=== PATIENT | female | born 2000 | race Caucasian/White ===

== ENCOUNTER 2024-04-03 16:10 | Emergency (ER) | payer OTHER, SELFPAY ==
--- NOTE | 2024-04-03 16:15 | ED.URI ---
HPI - URI/Sore Throat General Chief Complaint: Upper Respiratory Infection Stated Complaint: sore throat and rash Time Seen by Provider: 04/03/24 16:27 Source: patient, RN notes reviewed and old records reviewed Mode of arrival: ambulatory Limitations: no limitations History of Present Illness HPI Narrative: 24-year-old female presents to the [facility] with 2 complaints. Patient has had a sore throat, body aches, sinus congestion since Friday, 4 days. Denies fevers. Patient also has a rash to lower abdomen. Had been using a topical cream which states it got better. States the rash started yesterday Related Data Home Medications Medication Instructions Recorded Confirmed minoxidil 5 % topical foam See Rx Instructions .Route .COMPLEX 04/03/24 04/03/24 Allergies Allergy/AdvReac Type Severity Reaction Status Date / Time No Known Allergies Allergy Verified 04/03/24 16:22 Review of Systems Review of Systems: All systems reviewed & are unremarkable except as noted in HPI and below Constitutional: Constitutional: Reports no additional constitutional complaints Eyes: Eyes: Reports no additional eye complaints ENT: Reports as per HPI, Reports nasal congestion, Reports sinus pressure and Reports sore throat Cardiovascular: Cardiovascular: Reports no additional cardiovascular complaints, Denies chest pain and Denies dyspnea Respiratory: Respiratory: Denies chest congestion, Denies cough and Denies dyspnea Gastrointestinal: Gastrointestinal: Reports no additional gastrointestinal complaints, Denies abdominal pain, Denies nausea and Denies vomiting Musculoskeletal: Musculoskeletal: Reports no additional musculoskeletal complaints Integumentary/Breasts: Skin/Breast: Reports as per HPI Neurologic: Reports system reviewed and no additional complaints, except as documented Psychiatric: Psychiatric: Reports no additional psychiatric complaints Allergic/Immunologic: Allergic/Immunologic: Reports no additional allergic/immunologic complaints PMFSH Social History Social History Smoking status: Never smoker Comments At the time of my signature, I reviewed and agree with the nursing past medical, surgical, social, and family history. There is no relevant family history pertinent to the patient complaint. Exam Const: General: cooperative, healthy appearing, comfortable, no acute distress, well developed, alert and well nourished Nutritional Appearance: well nourished Orientation/consciousness: patient oriented x3 Limitations: no limitations HENMT: Head: normal to inspection Ears: hearing grossly normal bilaterally and external ears normal Face/Nose/Sinus: Normal external nose present, Normal nares present, Normal nasal mucous membranes and turbinates present, normal facial exam and face symmetric Face and sinus: normal facial exam and face symmetric Mouth: Yes Normal oral and palatal mucosa present, Yes lip normal and Yes tongue normal Throat: tonsils normal, uvula midline, postnasal drainage and no uvular edema Eyes: General: appearance normal, both eyes and all related structures Alignment and Position: alignment normal Periorbital: periorbital findings normal Pupils: Equal, round and reactive pupils present EOM: EOMs intact bilaterally Neck: Neck: normal visual inspection, full ROM, no lymphadenopathy and no meningeal signs Chest: Chest palpation & inspection: normal inspection of the chest Resp: Effort & Inspection: normal respiratory effort and able to speak in complete sentences Auscultation: clear to auscultation bilaterally, no crackles, no rales, no rhonchi and no wheezes Cardio: Rate: regular rate Rhythm: regular rhythm Skin: General skin exam: normal color and no rashes or lesions noted Lesions: no lesions Trauma: no lacerations or abrasions Wounds: no wounds Other: Oval areas multiple to the right lower abdomen below pannus Patient denies
[2024-04-03 16:25] VITALS: BP 128/72; PULSE 98; RESP 18; TEMP 36.5; O2SAT 99
[2024-04-03 16:34] LABS: EDSTREPNEGPOS1 Negative (Negative)
== END 2024-04-03 16:43 | disposition home or self-care (01) ==
PROVIDERS: Emergency Provider Nurse Practitioner
DX: J06.9 Acute upper respiratory infection, unspecified (principal); R09.82 Postnasal drip; B36.9 Superficial mycosis, unspecified
CPT/HCPCS: 87070; 87880; 99213; G0463

== ENCOUNTER 2024-04-25 12:07 | Emergency (ER) | payer OTHER, SELFPAY ==
--- NOTE | ~2024-04-25 | US_ITS ---
EXAMINATION: US venous doppler [facility] DATE: 04/25/2024 13:56 INDICATION: Left lower limb swelling. TECHNIQUE: Grayscale ultrasound images without and with compression and Doppler ultrasound images of the left lower extremity veins were obtained. COMPARISON: None. FINDINGS: The visualized portions of left common femoral vein, profunda (deep) femoral vein, femoral vein, popl iteal vein, peroneal veins, posterior tibial veins, and greater saphenous vein outflow are patent. IMPRESSION: 1. No deep venous thrombosis. Reviewed, dictated and finalized at location A.
[2024-04-25 12:09] VITALS: BP 148/95; PULSE 98; RESP 16; TEMP 36.3; O2SAT 97
--- NOTE | 2024-04-25 12:54 | ED.LOWEXIN ---
HPI - Extremity Injury (Lower) General Chief Complaint: Extremity Injury, Lower Stated Complaint: LLE pain, worried about DVT Time Seen by Provider: 04/25/24 12:15 Source: patient Mode of arrival: ambulatory Limitations: no limitations History of Present Illness HPI Narrative: This is a 24-year-old female, on a ago via minoxidil, who presents to the emergency department complaining of left leg pain for the past 2 weeks. The patient states she has family history clotting disorders and is concerned for blood clot. She describes the pain as cramping, moderate and intermittent. She denies any fevers, chills, weakness or known trauma. She has no other complaints at this time. Related Data Home Medications Medication Instructions Recorded Confirmed minoxidil 5 % topical foam See Rx Instructions .Route .COMPLEX 04/03/24 04/03/24 Allergies Allergy/AdvReac Type Severity Reaction Status Date / Time No Known Allergies Allergy Verified 04/25/24 12:24 Review of Systems Review of Systems: All systems reviewed & are unremarkable except as noted in HPI and below PMFSH Past Medical History Medical History Hair loss Surgical History Surgical History No significant past surgical history Social History Social History Smoking status: Never smoker Alcohol intake: never Substance use: never Exam Narrative: GENERAL: Well-developed, well-nourished, and in no acute distress. HEAD: Normocephalic, atraumatic. EYES: PERRLA and EOMI. CHEST: Clear to auscultation. No respiratory distress. No wheezes rales or rhonchi HEART: Regular rate and rhythm. No murmur heard. Normal peripheral pulses. ABDOMEN: Soft, nontender, nondistended, normal active bowel sounds. EXTREMITIES: No obvious deformity. Normal range of motion. Trace left lower leg edema compared to the right. SKIN: Warm, dry, no rash. NEURO: Alert and oriented x3. No focal deficit. Moving all 4 limbs spontaneously PSYCH: Normal mood and affect. Course Course Emergency Course: 14:20 - Left lower extremity ultrasound negative for DVT. I suspect this is strain as the cause of her pain. Will discharge with recommendation for primary care follow-up. I discussed the findings and recommendations with the patient. Discussed return and emergency precautions including signs/symptoms of infection and neurovascular compromise. The patient voiced understanding and agreement with the plan. All questions answered to her satisfaction. Vital Signs Vital signs: Vital Signs Temperature 97.3 F L 04/25/24 12:09 Pulse Rate 98 04/25/24 12:09 Respiratory Rate 16 04/25/24 12:09 Blood Pressure 148/95 H 04/25/24 12:09 Pulse Oximetry 97 04/25/24 12:09 Oxygen Delivery Room Air 04/25/24 12:09 Temperature 97.3 F L 04/25/24 12:09 Pulse Rate 98 04/25/24 12:09 Respiratory Rate 16 04/25/24 12:09 Blood Pressure 148/95 H 04/25/24 12:09 Pulse Oximetry 97 04/25/24 12:09 Oxygen Delivery Room Air 04/25/24 12:09 MDM - Extremity Injury (Lower) MDM Narrative Medical decision making narrative: Plan: Imaging, reassess Differential Diagnosis Differential diagnosis: Likely other (DVT, muscle strain, other) Discharge Plan Discharge Clinical Impression: Pain of left calf Strain of calf muscle Qualifiers: Encounter type: initial encounter Laterality: left Qualified Code(s): S86.812A - Strain of other muscle(s) and tendon(s) at lower leg level, left leg, initial encounter Patient Disposition: Home, Self-Care Condition: Stable Instructions: Antibiotic Form, Leg Sprain (ED) Additional Instructions: You were seen in the emergency department. An ultrasound was not concerning for blood clot. I suspect a strain. I recommend following up with your primary care doctor. If you develop fevers with rapidly spreading redness and increasing pain, the foot/leg appears blue/cold, or if you have other emergent concerns for life, limb, or eyesight, return to the emergency department. Patient Language: Kinyarwanda Prescriptions: No Action minoxidil 5 % Foam See Rx Instructions .ROUTE .COMPLEX Rx Instructions: ea topically clotrimazole 1 % cream 1 applic topical BID 14 Days Qty: 45 0RF Follow-up/Referrals: Perla,MD Nicolette [Primary Care Provider] - 2 Weeks Time of Disposition: 14:23
== END 2024-04-25 14:31 | disposition home or self-care (01) ==
PROVIDERS: Emergency Provider Preventive Medicine Aerospace Medicine; PCP Family Medicine
DX: S86.812A Strain of other muscle(s) and tendon(s) at lower leg level, left leg, initial encounter (principal)
CPT/HCPCS: 93971; 99284

== ENCOUNTER 2024-06-10 17:39 | Emergency (ER) | payer OTHER, SELFPAY ==
[2024-06-10 17:54] VITALS: BP 129/76; PULSE 100; RESP 18; TEMP 36.6; O2SAT 100
--- NOTE | 2024-06-10 18:14 | ED_ITS ---
HPI - URI/Sore Throat General Chief Complaint: Upper Respiratory Infection Stated Complaint: Sore throat Time Seen by Provider: 06/10/24 18:15 Source: patient, RN notes reviewed and old records reviewed Mode of arrival: ambulatory Limitations: no limitations History of Present Illness HPI Narrative: 24-year-old female presents to the [facility] with 2 day history of body aches, sore throat. States that she was at a family reunion family members were recently diagnosed with bronchitis. Denies any fevers. Onset (ago): day(s) (2) Related Data Home Medications ?Medication ?Instructions ?Recorded ?Confirmed ?Last Taken ?Type minoxidil 2.5 mg tablet 2.5 mg PO DAILY 06/10/24 06/10/24 Unknown History Allergies Allergy/AdvReac Type Severity Reaction Status Date / Time No Known Allergies Allergy Verified 06/10/24 18:16 Review of Systems Review of Systems: All systems reviewed & are unremarkable except as noted in HPI and below Constitutional: Constitutional: Reports as per HPI and Reports body ache(s) ENT: Reports as per HPI and Reports sore throat Cardiovascular: Cardiovascular: Reports no additional cardiovascular complaints, Denies chest pain and Denies dyspnea Respiratory: Respiratory: Reports no additional respiratory complaints, Denies chest congestion, Denies cough and Denies dyspnea Gastrointestinal: Gastrointestinal: Reports no additional gastrointestinal complaints, Denies abdominal pain, Denies nausea and Denies vomiting Musculoskeletal: Musculoskeletal: Reports no additional musculoskeletal complaints Integumentary/Breasts: Skin/Breast: Reports system reviewed and no additional complaints, except as docu PMFSH Past Medical History Medical History Hair loss Surgical History Surgical History No significant past surgical history Social History Social History Smoking status: Never smoker Alcohol intake: never Substance use: never Comments At the time of my signature, I reviewed and agree with the nursing past medical, surgical, social, and family history. There is no relevant family history pertinent to the patient complaint. Exam Const: General: cooperative, healthy appearing, comfortable, no acute distress, well developed, alert and well nourished Nutritional Appearance: well nourished and obese Orientation/consciousness: patient oriented x3 Limitations: no limitations HENMT: Head: normal to inspection Ears: hearing grossly normal bilaterally, external ears normal, TM's normal bilaterally, EAC's normal, mastoids normal and no periauricular adenopathy Face/Nose/Sinus: Normal external nose present, normal facial exam and face symmetric Face and sinus: normal facial exam and face symmetric Mouth: Yes Normal oral and palatal mucosa present, Yes lip normal and Yes tongue normal Throat: uvula midline, abnormal tonsil bilateral erythema; no exudates and no hypertrophy and postnasal drainage Eyes: General: appearance normal, both eyes and all related structures Alignment and Position: alignment normal Periorbital: periorbital findings normal Neck: Neck: normal visual inspection, full ROM, no lymphadenopathy and no meningeal signs Chest: Chest palpation & inspection: normal inspection of the chest Resp: Effort & Inspection: normal respiratory effort and able to speak in complete sentences Auscultation: clear to auscultation bilaterally, no crackles, no rales, no rhonchi and no wheezes Cardio: Rate: regular rate Skin: General skin exam: normal color and no rashes or lesions noted Lesions: no lesions Rashes: no rashes Wounds: no wounds Neuro: General: patient oriented x3, gait normal, tone normal, moves all extremities and no meningeal signs Cognition (Neuro): normal cognition Speech: normal speech Gait exam (Neuro): Normal gait present Extrem: General: normal to inspection, full ROM, capillary refill normal and normal gait Psych: Appearance: grossly normal and well kempt Mental Status: mental status grossly normal Speech and movement: Normal speech and movement present and Clear speech present Affect: normal affect Attitude: cooperative Course Course Level of Care: Express Care Visit Vital Signs Vital signs: Vital Signs Temperature 97.8 F 06/10/24 17:54 Pulse Rate 100 06/10/24 17:54 Respiratory Rate 18 06/10/24 17:54 Blood Pressure 129/76 06/10/24 17:54 Pulse Oximetry 100 06/10/24 17:54 Oxygen Delivery Room Air 06/10/24 17:54 Temperature 97.8 F 06/10/24 17:54 Pulse Rate 100 06/10/24 17:54 Respiratory Rate 18 06/10/24 17:54 Blood Pressure 129/76 06/10/24 17:54 Pulse Oximetry 100 06/10/24 17:54 Oxygen Delivery Room Air 06/10/24 17:54 Reviewed MDM - URI/Sore Throat MDM Narrative Medical decision making narrative: Patient sitting comfortably in exam room. Nontoxic, vitals stable. Patient presents with 2 day history of URI symptoms. Has taken ktbu-vzx-gnfvqey products. Flu COVID negative. Strep positive Patient appropriate for outpatient treatment with antibiotics with close Discharge instructions reviewed with patient, as well as provided in writing per nursing staff. The instructions also include specific and strict return/GO TO THE ER as well as f/u information. All questions have been answered, and the patient deny any further questions with discharge and discharge plan. Some parts of this dictation were generated by voice recognition software and may contain typographical and/or grammatical inaccuracies. Differential Diagnosis Differential diagnosis: Likely upper respiratory infection, otitis media, sinusitis, viral infection, influenza and pharyngitis Lab Data Labs: Lab Results 06/10/24 Range/Units 18:42 POC Influenza A Ag Negative (Negative) POC Influenza B Ag Negative (Negative) POC SARS CoV-2 Ag Negative (Negative) POC Grp A Strep Screen Positive (Negative) Reviewed Critical Care Time Critical Care Time Critical Care Time: No Discharge Plan Discharge Clinical Impression: Strep throat Patient Disposition: Home, Self-Care Condition: Stable Instructions: Antibiotic Form, Strep Throat (ED) Additional Instructions: After 24-48 hours on antibiotics, Throw the toothbrush away, start using a new one. Please be sure to wash bed linens especially pillow cases. Repeat once you finish the antibiotics. Do not share drinks. Take Motrin alternating with Tylenol for pain and fever alternating every 4 hours. Increase fluids, avoid caffeine. Give plenty of water, juice, Gatorade, Pedialyte, ice pops in Jell-O Follow up with Primary provider if not getting better this week For new or worsening symptoms go directly to the emergency room Patient Language: Romanian Prescriptions: New amoxicillin 500 mg tablet 500 mg PO Q12H Qty: 20 0RF No Action minoxidil 2.5 mg tablet 2.5 mg PO DAILY Follow-up/Referrals: Perla,MD Nicolette [Primary Care Provider] - 1 Week (express care follow up ) Stand Alone Forms: Work/School Release IP Time of Disposition: 18:52
[2024-06-10 18:44] LABS: EDCOVIDSCREEN Negative (Negative); EDINFLUASCREEN Negative (Negative); EDINFLUBSCREEN Negative (Negative); EDSTREPNEGPOS1 Positive (Negative)
== END 2024-06-10 18:55 | disposition home or self-care (01) ==
PROVIDERS: Emergency Provider Nurse Practitioner; PCP Family Medicine
DX: J02.0 Streptococcal pharyngitis (principal); Z20.822 Contact with and (suspected) exposure to COVID-19
CPT/HCPCS: 87426; 87804; 87880; 99213; G0463

== ENCOUNTER 2024-12-16 00:34 | Emergency (ER) | payer OTHER, SELFPAY ==
--- NOTE | ~2024-12-16 | XR_ITS ---
Portable chest x-ray Comparison: None Clinical History: Right chest pain Findings: Lungs are clear, without focal consolidation or pleural effusion. Cardiomediastinal silho uette is unremarkable. Bones and soft tissues are unremarkable. Impression: Normal chest. Reviewed, dictated and finalized at location M. Impression: Normal chest.
--- OUTSIDE RECORDS SUMMARY | 2024-12-16 00:36 | XMS_ITS | Referral Summary ---
Author Organization [address] [place] Address [address] [address] Care Team Providers Care Chief Of Planning Name Role Phone Nicolette Duncan MD Primary Care Provi blair Allergies No known active allergies Medications No known medications Active Problems Problem Noted Date Diagnosed Date Well adult exam 04/01/2023 Overview (04/01/2023): Discussed healthy diet and disease prevention- reviewed working on healthy diet, regular physical activity to your level, wearing sun screen, seat belts. Reviewed not using any mind alternating substances and driving No texting/driving Discussed importance of scheduling recommended screening tests. Discussed importance of regular physical examinations for health maintenance Health Maintenance: Last Tdap: encouraged Last Flu: encouraged Last COVID: encouraged If we can get last vaccine records so we can update your records Assessment & Plan (04/01/2023 10:29 AM CDT): Discussed healthy diet and disease prevention- reviewed working on healthy diet, regular physical activity to your level, wearing sun screen, seat belts. Reviewed not using any mind alternating substances and driving No texting/driving Discussed importance of scheduling recommended screening tests. Discussed importance of regular physical examinations for health maintenance Health Maintenance: Last Tdap: encouraged Last Flu: encouraged Last COVID: encouraged If we can get last vaccine records so we can update your records Test results: if you have not received communication about test results within 7 days of the test being performed, please contact the office. I strongly encourage myChart sign ups. It can facilitate communication flow. Please contact the office for instructions on signing up. Class 3 severe obesity due t o excess calories without serious comorbidity with body mass index (BMI) of 40.0 to 44.9 in adult 04/04/2021 Assessment & Plan (04/01/2023 10:31 AM CDT): Chronic, with improvement BMI Follow-up includes: nutrition counseling. Assessment & Plan (08/14/2021 9:31 AM PAVING RAMMER): She has lost weight since her last visit- 10 lbs! BMI Follow-up includes: nutrition counseling. Assessment & Plan (04/04/2021 3:00 PM CDT): BMI Follow-up includes: nutrition counseling and exercise counseling. Polycystic ovarian syndrome 01/17/2015 Overview (04/04/2021): Menstrual irregularity; facial hair growth, accelerated weight gain for months. [facility] (November 24, 2014): 17-hydroxyprogesterone 25 ng/dL, total testosterone 35 ng/dL, LH 3.1 uIU/mL, FSH 6.4 uIU/mL, hemoglobin A1c 5.4% (< 5.6), free T4 (direct) 1.28 ng/dL (0.93-1.60), DHEA-S 366.8 ug/dL (67.8-328.6), TSH 3.890 uIU/mL (0.450- 4.50), prolactin 7.0 ng/mL (4.8-23.3); cholesterol 161 mg/dL (100-169); triglyceride 73 mg/dL (< 89), HDL-cholesterol 51 mg/dL (> 39), LDL-cholesterol (calc) 95 mg/dL (< 109), VLDL-cholesterol (calc) 15 mg/dL (5-40) Last Assessment & Plan: Menstrual irregularity, facial/body hair growth, accelerated weight gain, mildly elevated serum testosterone level, probable evolving polycystic ovarian syndrome. 1. Obtain fasting serum glucose level following today's office appointment (laboratory requisition given). 2. See website: choosemyplate.gov for patient information handouts on healthy eating habits, meal planning, label reading, age appropriate foods, and portion size control. 3. Dietary & exercise counseling provided. 4. Increase daily physical exercise. 5. Metformin - daily, as outlined. 6. Return appointment in three months. 7. I reviewed my impression and recommendations with mother at the time of the office visit and she was in agreement. Assessment & Plan (08/14/2021 9:27 AM PAVING RAMMER): Currently uncontrolled Will start daily metformin 500 mg daily Continue to work on a lower cab diet, and daily activity Recheck labs in 6 months on meds Update me with any changes Call for questions or concerns Assessment & Plan (04/04/2021 3:00 PM CDT): Will check labs Will check pelvic ultrasound Will start with healthy lifestyle changes Follow up for her pap smear/lab review Update me with any changes Call for questions or concerns Immunizations Immunization Administration Dates Next Due DTaP 11/30/2004,04/14/2001 Hep B / HiB 01/12/2001 IPV 11/30/2004 Influenza, Unspecified 04/01/2023(Deferr ed: Patient Refused),03/30/2022(Deferred: Patient decision),08/14/2021(Deferred: Patient Refused),03/30/2020(Deferred: Patient Refused) MMR 11/30/2004,01/12/2001 Pneumococcal Conjugate 7-Valent 08/21/2001 Tdap 04/01/2023(Deferred: Patient Ref used) Varicella 01/12/2001 Social History Tobacco Use Types Packs/Day Years Used Date Smoking Tobacco: Never Tobacco Cessation:Counseling Given: Not Answered AUDIT-C Answer Date Recorded Q1: How often do you have a drink containing alc ohol? Monthly or less 04/01/2023 Q2: How many drinks containi ng alcohol do you have on a typical day when you are drinking? 1 or 2 04/01/2023 Q3: How often do you have si x or more drinks on one occasion? Never 04/01/2023 PHQ-2 Answer Date Recorded PHQ-2 Total Score (If total score is 3 or more points, staff should administer the PHQ-9) 0 04/01/2023 Personal Safety Answer Date Recorded Getting School Help Needed Not on file 08/23 Comments No Sex and Gender Information Value Date Recorded Sex Assigned at Not on file Legal Sex Female 12:13 AM PAVING RAMMER Gender Identity Not on file Sexual Orientation Not on file Last Filed Vital Signs Vital Sign Reading Time Taken Comments Blood Pressure 110/82 04/01/2023 10:14 AM CDT Pulse 81 04/01/2023 10:14 AM CDT Temperature 36.8 C (98.2 F) 04/01/2023 10:14 AM CDT Respiratory Rate 12 04/01/2023 10:1 4 AM CDT Oxygen Saturation 99% 04/01/2023 10: 14 AM CDT Inhaled Oxygen Concentration - - Weight 128.1 kg (282 lb 6.4 oz) 023 10:14 AM CDT Height 175.3 cm (5' 9) 04/01/2023 10:1 4 AM CDT Body Mass Index 41.7 04/01/2023 10:14 AM CDT Plan of Treatment Not on file Procedures Procedure Name Priority Date/Time Associated Diagnosis Comments HM CHLAMYDIA AND GONORRHEA Routine 11/19/2021 from Last 3 Months or Most Recently Relevant to Health Maintenance Results * HM CHLAMYDIA AND GONORRHEA (11/19/2021) [facility] Provider HEALTH MAINTENANCE Final Result from Last 3 Months or Most Recently Relevant to Health Maintenance Insurance [employer] [facility] HMO IDPA Care Teams Chief Of Planning Relationship Specialty Start Date End Date Nicolette Duncan MD [address] [place] [address] PCP - General Family Medicine 02/05/21
--- OUTSIDE RECORDS SUMMARY | 2024-12-16 00:36 | XMS_ITS | Continuity of Care Document ---
Author Organization [facility] Address [address] [place] [address] Phone Care Team Providers Care Artist'S Model Name Role Phone Malissa Jim PTA Unavailable Unavailable Procedures Procedure Date Neuromuscular Re-Ed Therapeutic Activities Therapeutic Exercise Manual Therapy Therapeutic Activities Neuromuscular Re-Ed Therapeutic Exercise Manual Therapy Therapeutic Activities Neuromuscular Re-Ed Therapeutic Exercise Manual Therapy PT Evaluation Low Complexity Neuromuscular Re-Ed Therapeutic Activities Free Assessment Void Encounter Advance Directives Directive Yes / No Effective Date File Name No Information Encounters Encounter Description Practice Location Reason(s) For Visit Diagnoses Date Provider Providers Copied on Encounter [facility], [place], [place], [id number], [place] tel:[phone] [place] No Information Hernán Leonardo. . [facility], [place], [place], [address], tel:[phone] [place] No Information Hernán Leonardo. . Referring Provider: Nicolette Calle, [address] [facility], [place], [address]. tel:[phone] [facility] [address], [place], [place], [id number], tel:[phone] [place] No Information [place] Malissa. . Referring Provider: Nicolette Calle, [address] [facility], [place], [address]. tel:[phone] [facility] [address] [address], [place], [place], [id number], [place] tel:[phone] [place] No Information [place] Malissa. . Referring Provider: Nicolette Calle, [address] [facility], [place], [address]. tel:[phone] [place] [address] [address] [address], [place], [place], [id number], tel:[phone] [place] No Information Quintonaaron Fernandez. . Referring Provider: Nicolette Calle, [address] [facility], [place], [address]. tel:[phone] [place], [place] [id number] [address] [address], [place], [place], [address], [place] tel:[phone] [place] No Information Heslin Yunior. . Referring Provider: Physician Screen. [facility] [address], [place], [place], [id number], [place] tel:[phone] [place] No Information Heslin Yunior. . Referring Provider: Physician Screen. Family History Family Member Type Diagnosis Age At Onset No Information Payers Payer name Insurance type Covered democrat ID Juanita jang(s) [facility] [id number] Social History Type Description Quantity Date Captured [...]
--- OUTSIDE RECORDS SUMMARY | 2024-12-16 00:36 | XMS_ITS | Patient Health Record ---
Author Organization [facility] Address [address] [id number] Care Team Providers Care Motor Vehicle Or Caravan Salesperson Name Role Phone Horace Lala DO Unavailable [phone] Unavailable [phone] Allergies No Known Allergies Reason For Referral No Information Plan Of Treatment No Information Insurance Providers Payer Name Payer Address Payer Phone Subscriber Number Group Number Insured Name Patient Relationship to Insured Coverage Start Date Coverage End Date [employer] [address] [place] [address] [id number] Jenni Cash Self - patient is the insured Medical (General) History Medical History History ICD Code gallbladder issues Liver disease Anemia: Gallbladder problems,Liver disea se or Abnormal liver test
--- OUTSIDE RECORDS SUMMARY | 2024-12-16 00:36 | XMS_ITS | Clinical Summary ---
Author Organization [facility] Care Team Providers Care Operations Research Group Manager Name Role Phone Unavailable Primary Care Provider Unavailabl e Social History Tobacco Use Types Packs/Day Years Used Date Smoking Tobacco: Never Assessed Comments Unknown Sex and Gender Information Value Date Recorded Sex Assigned at Not on file Legal Sex Female 10:52 AM TEST DEPARTMENT HELPER Gender Identity Not on file Sexual Orientation Not on file Plan of Treatment Health Maintenance Due Date Last Done Comments Hepatitis C Virus (HCV) Screening 2000 TdaP Immunization 2000 Human Papillomavirus (HPV) Immunization (1 - 3-dose series) 01/09/2015 Hepatitis B Immunization (1 of 3 - 19+ 3-dose series) 01/09/2019 Pap Smear 01/09/2021 Influenza Immunization (#1) 2024 SARS-COV-2 Immunization (2023- season) 2024 11/11/2020, 10/13/2020 Respiratory Syncytial Virus (RSV) Immunization (Adult) (1 - 1-dose 75+ series) 01/09/2075 DTaP/Tdap/Td Immunization Discontinued 11/30/2004 Meningococcal Immunization (ACWY) Aged Out No longer eligible based on patient's age to complete this topic Pneumococcal Immunization Combined Aged Out No longer eligible based on patient's age to complete this topic Rotavirus Immunization Aged Out No lo nger eligible based on patient's age to complete this topic
--- OUTSIDE RECORDS SUMMARY | 2024-12-16 00:36 | XMS_ITS | Clinical Summary ---
Author Organization [address] [place] Address [address] [address] Care Team Providers Care Mold Mover Name Role Phone Nicolette Duncan MD Primary [...] counseling. Assessment & Plan (08/14/2021 9:31 AM HOTEL HOUSEKEEPER): She has lost weight since her last [...] agreement. Assessment & Plan (08/14/2021 9:27 AM HOTEL HOUSEKEEPER): Currently uncontrolled Will start daily metformin 500 [...] Tdap 04/01/2023(Deferred: Patient Ref used) Varicella 01/12/2001 Medical History Medical History Date Comments PCOS (polycystic ovarian syndrome) Family History Medical History Relation Name Comments Breast cancer Maternal Grandmother Relation Name Status Comments Father Alive Maternal Grandfather Alive Maternal Grandmother Alive Mother Alive Paternal Grandfather Alive Paternal Grandmother Alive Social History Tobacco Use Types Packs/Day Years [...] on file Legal Sex Female 12:13 AM HOTEL HOUSEKEEPER Gender Identity Not on file Sexual Orientation Not on file Obstetrics History Last Filed Vital Signs Vital Sign Reading [...] 04/01/2023 10:14 AM CDT Plan of Treatment Health Maintenance Due Date Last Done Comments Hepatitis C Screening 2000 Varicella Vaccines (2 of 2 - 2-dose childhood series) 2004 01/12/2001 DTaP/Tdap/Td Vaccine (3 - Tdap) 01/09/2011 11/30/2004, 04/14/2001 HPV Vaccines (1 - 3-dose series) 01/09/2015 Chlamydia and Gonorrhea (GC/CT) Screening 11/19/2022 11/19/2021 Covid-19 Vaccine (3 - 2023-2 5 season) 2024 11/11/2020, 10/13/2020 Depression Screening 04/01/2024 04/01/2023, 08/14/2021, 04/04/2021 Regular Well Visit/Exam 18-64 04/01/2024, 04/01/2023 Cervical Cancer Screening 04/02/2024 04/02/2023 Influenza Vaccine (Season Ended) 2025 Hepatitis B Screening Completed 01/12/2001 Pneumococcal vaccine <65 Aged Out 08/21/2001 No longer eligible based on patient's age to complete this topic Procedures Procedure Name Priority Date/Time Associated Diagnosis Comments HM CHLAMYDIA AND GONORRHEA Routine 11/19/2021 from Last 3 Months or Most Recently Relevant to Health Maintenance Results * HM CHLAMYDIA AND GONORRHEA (11/19/2021) us Historical Provider HEALTH MAINTENANCE Final Result from Last 3 Months or Most Recently Relevant to Health Maintenance [facility] Care Teams Mold Mover Relationship Specialty Start Date End Date Nicolette Duncan MD [address] [place] [address] PCP - General Family Medicine 02/05/21
--- OUTSIDE RECORDS SUMMARY | 2024-12-16 00:36 | XMS_ITS ---
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 Progress Notes * Jenni FIGUEROADOB:[birth year] (24 yo F)Acc No.[id number]:06/03/2024 Patient: Jenni GUO Provider: Isabell Lala DO :2000 A ge:24 Y S ex:Female Date:06/03/2024 Address:[id number] Subjective: * Chief Complaints: * 1 . 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 What is your typical eating [...] Never a smoker. 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 T obacco Use: H istory D o [...] * Electronic signature of Girish Lala DO, [id number] on 12/16/2024 at 12:36 AM CDT Sign off status: Pending * Provider: Isabell Lala DO Date: 1 08/04/2023 Generated for Lolis daily/Vamsi/Orestes on: 0 12/16/2024 12:36 AM CDT History and Physical Notes * HPI [...] (_select all that apply) Fast Food,Carbohydrates,Sweets,Emotional Eating ([id number]),Poor Food Choices What is your typical eating [...]
--- OUTSIDE RECORDS SUMMARY | 2024-12-16 00:36 | XMS_ITS | Clinical Summary ---
Author Organization [facility] Address [address] [place] [address] Care Team Providers Care Rod Piler Name Role Phone Unavailable Primary Care Provider Unavailabl e Source Comments [facility],non-owned Affiliates and Associated Physician Practices is amultiple site organization consisting of ambulatory clinics and hospital sitesin [place], [place] and [place]. This disclosure is being madepursuant to the Care Everywhere program and may not contain all information available regarding this patient. Last updated 18.[facility] Social History Tobacco Use Types Packs/Day Years Used Date Smoking Tobacco: Never Assessed Comments Unknown Sex and Gender Information Value Date Recorded Sex Assigned at Not on file Legal Sex Female 10:00 AM CDT Gender Identity Not on file Sexual Orientation Not on file Plan of Treatment Health Maintenance Due Date Last Done Comments PAP SMEAR 2000 HIV SCREENING 01/09/2015 HPV VACCINE (1 - 3-dose series) 01/09/2015 CHLAMYDIA/GONORRHEA SCREENING 2016 HEPATITIS C SCREENING 01/05/2018 DTAP/TDAP/TD VACCINES (1 - Tdap) 01/09/2019 HEPATITIS B VACCINE (1 of 3 - 19+ 3-dose series) 01/09/2019 COVID-19 VACCINE (1 - 2023-2 5 season) 2024 DEPRESSION SCREENING 06/30/2024 INFLUENZA VACCINE (Season Ended) 2025 ZOSTER VACCINE (1 of 2) 01/09/2050 HIB VACCINE Aged Out No longer eligi ble based on patient's age to complete this topic MENINGOCOCCAL (Group B) VACC INE SHARED DECISION-MAKING Aged Out No longer eligibl e based on patient's age to complete this topic MENINGOCOCCAL GROUPS A/C/Y/W VACCINE Aged Out No longer eligible b ased on patient's age to complete this topic PNEUMOCOCCAL VACCINE Aged Out No long er eligible based on patient's age to complete this topic Insurance AETNA
--- OUTSIDE RECORDS SUMMARY | 2024-12-16 00:36 | XMS_ITS | Encounter Summary ---
Author Organization [facility] Address [address] [place] [address] Care Team Providers Care Wastewater Process Engineer Name Role Phone Unavailable Primary Care Provider Unavailabl e Encounter Details Date Type Department Care Team (Late st Contact Info) Description 04/22/2023 Lab Requisition [facility] - [facility] Lab [address] [facility] [facility], [place] [address] Frandy Kelly MD [facility] DERMATOLOGY [address] [place] [id number] Neoplasm of uncertain behavior of skin Social History Tobacco Use Types Packs/Day Years Used Date Smoking Tobacco: Never Assessed Comments Unknown Sex and Gender Information Value Date Recorded Sex Assigned at Not on file Legal Sex Female 10:00 AM CDT Gender Identity Not on file Sexual Orientation Not on file documented as of this encounter Plan of Treatment Not on file documented as of this encounter Procedures Procedure Name Priority Date/Time Associated Diagnosis Comments DERMATOPATHOLOGY Routine 04/22/2023 3:33 AM CDT Neoplasm of uncertain behavior of skin documented in this encounter Results * DERMATOPATHOLOGY (04/22/2023 3:33 AM CDT) Case Report Dermatopathology Report Case: [id number] Authorizing Provider: Frandy Kelly MD Collected: 04/22/2023 03:33 AM Ordering Location: [facility] Received: 04/23/2023 01:17 PM Pathologist: Natacha Howadr MD Specimens: A) - Skin, frontal scalp B) - Skin, anterior hairline 3:32 PM CDT DERMATOPATHOLOGY LABORATORY Final Diagnosis Specimen A. 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 Melanoma 3:32 PM CDT DERMATOPATHOLOGY LABORATORY Gross Description Specimen A: Received is one formalin filled container labeled with the patient's name and designated frontal scalp. The specimen consists of a shave biopsy measuring 5x3x1 mm. Jar 0. Specimen B: Received is one formalin filled container labeled with the patient's name and designated anterior hairline. The specimen consists of a shave biopsy measuring 4x4x1 mm. Jar 0. 3:32 PM CDT DERMATOPATHOLOGY LABORATORY Microscopic Description Specimen A. SKIN, frontal scalp: There are nests of cytologically bland melanocytes within the dermis that mature with depth. There is superficial dermal fibrosis. Specimen B. SKIN, anterior hairline: This is a compound nevus. There is a lentiginous proliferation of melanocytes between nevus nests of cells along the dermal-epidermal junction. There is underlying lamellar fibroplasia of the papillary dermis. The intradermal component is bland in appearance and matures with depth. (Compound Pedro's Nevus) 3:32 PM CDT DERMATOPATHOLOGY LABORATORY Disclaimer An external and internal positive and negative controls are appropriate for the histochemical, immunohistochemical and immunofluorescence stain(s) in this case (if any), except where stated explicitly. The performance characteristics of the stain(s) cited in this report were developed and its performance characteristic determined by the Dermatopathology Laboratory at [facility], directed by Dr. Rico Lopez. These tests need not be, and therefore are not, approved by the [place] Food and Drug Administration. The tests are used for clinical purposes. Billing Codes Specimen Charges Stain Charges 74575 35586 1 1 3 3:32 PM CDT DERMATOPATHOLOGY LABORATORY Embedded Images 3:32 PM CDT DERMATOPATHOLOGY LABORATORY Pathology/Cytology TISSUE SPECIMEN FROM SKIN / Unknown 04/22/2023 3:33 AM CDT 04/23/2023 1:17 PM CDT Miscellaneous samples (specimen) TISSUE SPECIMEN FROM SKIN / Unknown 04/22/2023 3:33 AM CDT 04/23/2023 1:17 PM CDT us Frandy Kelly MD LAB - PATHOLOGY/CYTOLOGY JOSSE SHORT Final Result DERMATOPATHOLOGY LABORATORY [facility] - Department of Dermatology [facility] [address] [place] [address], [address] [phone] documented in this encounter Visit Diagnoses Diagnosis Neoplasm of uncertain behavior of skin documented in this encounter
[2024-12-16 00:37] VITALS: BP 152/92; PULSE 90; RESP 18; TEMP 37; O2SAT 97
--- OUTSIDE RECORDS SUMMARY | 2024-12-16 00:37 | XMS_ITS ---
Author Organization [facility] Address [address] [place], [place] [address] Care Team Providers Care Field Sampling Technician Name Role Phone Lala DO Horace Unavailable [phone] Santos EVANS, Jennifer Unavailable Encounters Encounter Location Date Provider Diagnosis [facility] [address] [facility] [address] [place], [place] [id number] 06/03/2024 Jennifer Graham Plan Of Treatment No Information Progress Notes * Jenni FIGUEROADOB:[birth year] (24 yo F)Acc No.[id number]:06/03/2024 Patient: Jenni GUO Provider: Reg Graham RD :2000 A ge:24 Y S ex:Female Date:06/03/2024 Address:[address] [place], [place] [id number] Subjective: * Chief Complaints: * * Medical History: Objective: * Vitals: Assessment: Plan: * Treatment: * Billing Information: * Visit Code: * Procedure Codes: * Electronic signature of Kristy Graham RD on 12/16/2024 at 12:36 AM CDT Sign off status: Pending * Provider: Reg Graham RD Date: 08/04/2023 Generated for Pali ng/Faxing/eTransmitting on: 0 12/16/2024 12:36 AM CDT
--- NOTE | 2024-12-16 02:06 | PC.NURSE ---
pt presents to ED c/o 10/07 stabbing R side chest pain non radiating and nausea, onset 2 days ago. Pt states pain worsening with movement and when lying flat.
[2024-12-16 02:11] VITALS: BP 132/88; PULSE 98; RESP 18; O2SAT 100
[2024-12-16 02:12] VITALS: BP 132/88; PULSE 89; RESP 16; TEMP 36.5; O2SAT 100
[2024-12-16 02:17] VITALS: BP 127/82; PULSE 85; RESP 20; O2SAT 100
[2024-12-16] MEDS: BELLADONNA ALK/PHENOB ELIX 10 ML, MAG HYDROX/ALUMINUM HYD/SIMETH 30 ML, LIDOCAINE 2% VI... PO (02:31)
[2024-12-16] MEDS: FAMOTIDINE 20 MG/2 ML VIAL IV PUSH (02:32)
--- NOTE | 2024-12-16 02:37 | ECG_ITS ---
Test Date: 2024-12-16 02:49:22 Measurements Intervals [place] Rate: 79 P: 32 WA: 139 QRS: 19 QRSD: 96 T: 23 QT: 365 QTc: 420 Interpretive Statements SINUS RHYTHM WITH SINUS ARRHYTHMIA EARLY PRECORDIAL R/S TRANSITION VOLTAGE CRITERIA FOR LVH MINIMAL Q WAVES- HIGH LATERAL LEADS BASELINE ARTIFACT- I, II, AVR, AVL, AVF, V1 BORDERLINE ECG No previous ECG available for comparison Electronically Signed On 12-16-2024 07:26:39 CDT by Ian Espinoza D.O.
--- NOTE | 2024-12-16 02:38 | ED_ITS ---
HPI - Abdominal Pain General Chief Complaint: Abdominal Pain Stated Complaint: nausea and epigastric pain Time Seen by Provider: 12/16/24 02:11 History of Present Illness HPI narrative: 24-year-old female presenting to the emergency room with epigastric and right- sided chest pain and nausea worse with certain position changes and lying flat. Denies any shortness a breath, feels like indigestion but slightly different. Is on a weight loss injectable semaglutide and has been recently increased on her dose 12.5 mg weekly. Endorses some loose stools and diarrhea. No fever, chills, sick contacts. Nonproductive cough for several days. Was otherwise in her normal state of health. Has not tried anything for symptom control at home. No trauma or injury. No cardiac history. Related Data Home Medications ?Medication ?Instructions ?Recorded ?Confirmed ?Last Taken ?Type minoxidil 2.5 mg tablet 2.5 mg PO DAILY 06/10/24 06/10/24 Unknown History tirzepatide (weight loss) 12.5 mg subcut 12/07/24 12/07/24 Unknown History mg/0.5 mL subcutaneous pen injector (Zepbound) Allergies Allergy/AdvReac Type Severity Reaction Status Date / Time No Known Allergies Allergy Verified 12/16/24 00:40 Review of Systems 2 Review of Systems: As [facility] Past Medical History Medical History Anxiety Hair loss Surgical History Surgical History No significant past surgical history Family History Family History Grandparent Breast cancer mat grandmother Other Asthma Social History Social History Smoking status: Never smoker Alcohol intake: current Substance use: never Substance use type: does not use Do You Feel Safe in your Home?: Yes Lack of Transportation: No Lack of Food: Never True Current Housing: I Have Housing Concerned About Future Housing: No Difficulty Paying Gas/Electric Bills: No Currently Unemployed: No Education: High School Diploma/GED Difficulty w/ Childcare or Family Care: No Living arrangements: with roommate(s) Occupation/Education: occupation Gender identity (if verbalized by the patient): Female Sexual Orientation (if Verbalized by the Patient): Lesbian, Bonilla, or Homosexual Exam 2 Narrative: GENERAL: [Well-appearing, well-nourished, and in no acute distress.] HEAD: [Normocephalic, atraumatic.] EYES: [PERRLA and EOMI.] ENT: Nares clear, no rhinorrhea or epistaxis. Mucous membranes moist. NECK: Supple. CHEST: [Clear to auscultation. No respiratory distress.] HEART: [Regular rate and rhythm]. No murmur heard. [Normal peripheral pulses.] ABDOMEN: [Soft, nondistended], [nontender], [No rigidity or guarding] EXTREMITIES: Normal range of motion. [No edema.] SKIN: Warm, dry, no rash. NEURO: [No focal deficits]. Alert and oriented [x3.] PSYCH: [Normal mood and affect.] Course Vital Signs Vital signs: Vital Signs Temperature 37.0 C 12/16/24 00:37 Pulse Rate 90 12/16/24 00:37 Respiratory Rate 18 12/16/24 00:37 Blood Pressure 152/92 H 12/16/24 00:37 Pulse Oximetry 97 12/16/24 00:37 Oxygen Delivery Room Air 12/16/24 00:37 Temperature 36.5 C 12/16/24 02:12 Pulse Rate 118 H 12/16/24 03:01 Respiratory Rate 25 H 12/16/24 03:01 Blood Pressure 134/85 12/16/24 03:01 Pulse Oximetry 100 12/16/24 03:01 Oxygen Delivery Room Air 12/16/24 00:37 MDM - Abdominal Pain MDM Narrative Medical decision making narrative: 24-year-old otherwise healthy female presenting to the emergency room with epigastric indigestion sensations and right sided chest discomfort worse with moving. She has had some nausea intermittently for last 3 days. No shortness of breath, endorses a nonproductive cough. Was otherwise in her normal state of health. She has a soft nontender nondistended abdomen, pain is worse with certain manipulations in lying flat, twisting. Normal vital signs with any fever, chills, hypoxia blood pressure concerns. Patient's symptomatology could be related to musculoskeletal chest pain, costochondritis, esophagitis, gastritis, GERD or reflux, reactive to her medication including injectable semaglutide in potentially causing pancreatitis or gastroparesis type symptoms. She is tolerating oral intake and otherwise not any acute distress. Given Pepcid and a GI cocktail for symptoms, CBC, CMP, lipase, urinalysis chest x-ray and EKG obtained for further delineation. Laboratory studies showed no leukocytosis or anemia. Normal platelet count. Electrolytes unremarkable. Normal renal function, normal hepatic function. Normal lipase. Urinalysis without any convincing infection signs and contaminated sample. Chest x-ray appears unremarkable without any infiltrates or effusions. EKG shows sinus rhythm, no ST segment changes or concerns. Patient had symptomatic improvement can be safely discharged home at this time with prescription for Maalox and Pepcid as needed. Medical Records Attestation: I reviewed the patient's medical records. Lab Data Attestation: I reviewed the patient's lab results. 12/16/24 02:27 12/16/24 02:27 Labs: Lab Results 12/16/24 12/16/24 12/16/24 Range/Units 02:11 02:27 02:35 WBC 7.1 (4.5-10.0) K/mm3 RBC 4.64 (4.2-5.4) M/mm3 Hgb 13.5 (12.0-15.0) g/dL Hct 41.1 (37.0-47.0) % MCV 88.6 (80-100) fl MCH 29.1 (26-34) pg MCHC 32.8 (32-36) g/dl RDW 13.2 (11.5-14.5) % Plt Count 309 (150-375) k/mm3 MPV 11.0 H (7.4-10.4) fl Immature Gran % (Auto) 0.1 (0-0.5) % Neut % (Auto) 51.3 (45.5-73.1) % Lymph % (Auto) 33.3 (18.3-44.2) % Wolfe % (Auto) 12.3 H (2.6-8.5) % Eos % (Auto) 2.3 (0-4.4) % Baso % (Auto) 0.7 (0.2-1.2) % Lymph # (Auto) 2.35 (0.9-3.2) K/mm3 Wolfe # (Auto) 0.9 H (0.1-0.6) K/mm3 Eos # (Auto) 0.2 (0-0.3) K/mm3 Baso # (Auto) 0.1 (0.0-0.1) K/mm3 Abs Immat Gran (auto) 0.01 (0.00-0.031) K/mm3 Absolute Neuts (auto) 3.6 (1.3-6.7) K/mm3 Absolute Nucleated RBC 0.000 (0.0-0.012) K/mm3 Nucleated RBC % 0.0 (0.0-0.2) % Sodium 140 (137-145) mmol/L Potassium 3.9 (3.4-5.0) mmol/L Chloride 106 (98-107) mmol/L Carbon Dioxide 24 (22-30) mmol/L Anion Gap 10 (4-12) mmol/L BUN 11 (7-17) mg/dL Creatinine 0.76 (0.7-1.0) mg/dL Estim Creat Clear Calc 144 ml/min Estimated GFR > 60 (59 - ) Glucose 97 (65-110) mg/dL Calcium 9.5 (8.4-10.2) mg/dL Total Bilirubin 0.4 (0.2-1.3) mg/dL AST 27 (14-36) U/L ALT 20 (6-35) U/L Alkaline Phosphatase 125 (38-126) U/L Total Protein 8.2 (6.3-8.2) g/dL Albumin 4.5 (3.5-5.1) g/dL Lipase 45 (23-300) U/L Urine Color Yellow (Yellow) Urine Appearance Clear (Clear) Urine pH 6.5 (5.0-9.0) Ur Specific [place] 1.024 (1.001-1.035) Urine Protein Negative (Negative) mg/dL Urine Glucose (UA) Negative (Negative) mg/dL Urine Ketones Trace H (Negative) mg/dL Ur Blood (Man) Negative (Negative) Urine Nitrate Negative (Negative) Urine Bilirubin Negative (Negative) Urine Urobilinogen 1.0 (<2.0) mg/dL Add Ur Microanalysis Reviewed Leukocyte Esterase Rfl 1+ H (Negative) MARV/UL Urine RBC 0-2 (0-2) /hpf Urine WBC 0-5 (0-3) /hpf Ur Squamous Epith Cells Occasional (Few) /hpf Urine Bacteria 1+ H /hpf Urine Casts 0-2 POC Urine HCG, Qual Negative (Negative) Imaging Data Attestation: I personally reviewed and interpreted this imaging study as follows: My impression: Unremarkable chest x-ray without any infusions or infiltrates. Radiologist's impression: ITS Impressions Chest X-Ray 12/16/24 05:50 Impression: Normal chest. Discharge Plan Discharge Clinical Impression: Acute epigastric pain, Chest pain Patient Disposition: Home Condition: Stable Instructions: Antibiotic Form, Chest Pain (DC), Epigastric Pain (ED) Additional Instructions: All of your laboratory studies, EKG and imaging studies are reassuring and normal appearing. Your symptoms are likely secondary to potential GI issues or your injectable semaglutide at a high dose. No urgent or emergent concerns found today. Follow-up with regular doctor. Return with any recurrence or worsening symptoms. Patient Language: Sammarinese Prescriptions: New dicyclomine 20 mg tablet 20 mg PO TID PRN (Reason: abdominal pain) Qty: 14 0RF alum-mag hydroxide-simeth [Maalox Advanced] 200-200-20 mg/5 mL suspension 15 ml PO QID PRN (Reason: dyspepsia) Qty: 3000 0RF Rx Instructions: administer between meals and at bedtime famotidine [Pepcid] 20 mg tablet 20 mg PO BID Qty: 20 0RF No Action minoxidil 2.5 mg tablet 2.5 mg PO DAILY Zepbound 12.5 mg/0.5 mL pen injector subcut Follow-up/Referrals: Perla,MD Nicolette [Primary Care Provider] - Time of Disposition: 05:32
[2024-12-16 02:40] LABS: BEDSIDEPREGUCG Negative (Negative)
[2024-12-16 02:44] LABS: Basophils Absolute Auto 0.1 K/mm3 (0.0-0.1); Basophils Percent Auto 0.7 % (0.2-1.2); Eosinophils Absolute Auto 0.2 K/mm3 (0-0.3); Eosinophils Percent Auto 2.3 % (0-4.4); Hematocrit 41.1 % (37.0-47.0); Hemoglobin 13.5 g/dL (12.0-15.0); Immature Granulocyte Absolute 0.01 K/mm3 (0.00-0.031); Immature Granulocyte Percent A 0.1 % (0-0.5); Lymphocytes Absolute Auto 2.35 K/mm3 (0.9-3.2); Lymphocytes Percent Auto 33.3 % (18.3-44.2); Mean Corpuscular HGB Conc 32.8 g/dl (32-36); Mean Corpuscular Hemoglobin 29.1 pg (26-34); Mean Corpuscular Volume 88.6 fl (80-100); Monocytes Absolute Auto 0.9 K/mm3 (0.1-0.6); Monocytes Percent Auto 12.3 % (2.6-8.5); Neutrophils Absolute Auto 3.6 K/mm3 (1.3-6.7); Neutrophils Percent Auto 51.3 % (45.5-73.1); Platelet Count Result 309 k/mm3 (150-375); Red Blood Count 4.64 M/mm3 (4.2-5.4); Red Cell Distribution Width 13.2 % (11.5-14.5); White Blood Count 7.1 K/mm3 (4.5-10.0)
[2024-12-16 02:55] LABS: Add Urine Microscopic? YES; Appearance Urine Clear (Clear); Bacteria Urine 1+ /hpf; Bilirubin Urine Negative (Negative); Blood Urine Negative (Negative); Color Urine Yellow (Yellow); Glucose Urine UA Negative (Negative); Ketones Urine Trace mg/dL (Negative); Leukocyte Esterase Ur 1+ LEU/UL (Negative); Need Manual Microscopic Reviewed; Nitrate Urine Negative (Negative); Non Pathogenic Casts 0-2; Protein Urine Negative (Negative); RBC Urine 0-2 /hpf (0-2); Specific Grav Ur 1.024 (1.001-1.035); Squamous Epithelial Cell Urine Occasional /hpf (Few); WBC Urine 0-5 /hpf (0-3); pH Urine 6.5 (5.0-9.0)
[2024-12-16 02:55] LABS: Alanine Aminotransferase 20 U/L (6-35); Albumin Level 4.5 g/dL (3.5-5.1); Alkaline Phosphatase 125 U/L (38-126); Anion Gap 10 mmol/L (4-12); Aspartate Amino Transferase 27 U/L (14-36); Bilirubin,Total 0.4 mg/dL (0.2-1.3); Blood Urea Nitrogen 11 mg/dL (7-17); Calcium 9.5 mg/dL (8.4-10.2); Carbon Dioxide 24 mmol/L (22-30); Chloride 106 mmol/L (98-107); Estimated CRCL calculation 144 ml/min; Estimated Glomerular Filt Rate > 60; Glucose 97 mg/dL (65-110); Lipase 45 U/L (23-300); Potassium 3.9 mmol/L (3.4-5.0); Sodium 140 mmol/L (137-145); Total Protein 8.2 g/dL (6.3-8.2)
[2024-12-16 03:01] VITALS: BP 134/85; PULSE 118; RESP 25; O2SAT 100
--- OUTSIDE RECORDS SUMMARY | 2024-12-16 03:50 | XMS_ITS | Encounter Summary ---
Author Organization [facility] Address [address] [address] Care Team Providers Care Office Technologist Name Role Phone Unavailable Primary Care Provider Unavailabl e Encounter Details Date Type Department Care Team (Late st Contact Info) Description 04/22/2023 Lab Requisition [facility] - [facility] Lab [address] [facility], [place] [address] Frandy Kelly MD [facility] DERMATOLOGY [address] [place] [phone] Neoplasm of uncertain behavior of skin [...] AM CDT) Case Report Dermatopathology Report Case: [id number] Authorizing Provider: Frandy Kelly MD Collected: 04/22/2023 03:33 AM Ordering Location: [facility] DermPath Lab Received: 04/23/2023 01:17 PM Pathologist: Natacha Howard MD Specimens: A) - Skin, frontal scalp [...] characteristic determined by the Dermatopathology Laboratory at [facility], directed by Dr. Rico Lopez. These tests need not be, and therefore are not, approved by the [place] Food and Drug Administration. The tests are used for clinical purposes. Billing Codes Specimen Charges Stain Charges 64113 36828 1 1 3 3:32 PM CDT DERMATOPATHOLOGY LABORATORY Embedded Images 3:32 PM CDT DERMATOPATHOLOGY LABORATORY Pathology/Cytology TISSUE SPECIMEN FROM SKIN / Unknown 04/22/2023 3:33 AM CDT 04/23/2023 1:17 PM CDT Miscellaneous samples (specimen) TISSUE SPECIMEN FROM SKIN / Unknown 04/22/2023 3:33 AM CDT 04/23/2023 1:17 PM CDT us Frandy Kelly MD LAB - PATHOLOGY/CYTOLOGY JOSSE SHORT Final Result DERMATOPATHOLOGY LABORATORY [facility] - Department of Dermatology [facility] Specialized Medicine [address] [place] [address], [address] [phone] documented in this encounter Visit Diagnoses Diagnosis Neoplasm of uncertain behavior of skin documented in this encounter
--- OUTSIDE RECORDS SUMMARY | 2024-12-16 03:50 | XMS_ITS | Referral Summary ---
Author Organization [facility] [place] Address [address] [address] Care Team Providers Care Rivet Flunky Name Role Phone Nicolette Duncan MD Primary [...] counseling. Assessment & Plan (08/14/2021 9:31 AM CONTRACT DESIGN AGENT): She has lost weight since her last [...] agreement. Assessment & Plan (08/14/2021 9:27 AM CONTRACT DESIGN AGENT): Currently uncontrolled Will start daily metformin 500 [...] on file Legal Sex Female 12:13 AM CONTRACT DESIGN AGENT Gender Identity Not on file Sexual Orientation [...] Results * HM CHLAMYDIA AND GONORRHEA (11/19/2021) [facility] Provider HEALTH MAINTENANCE Final Result from Last 3 Months or Most Recently Relevant to Health Maintenance Insurance [employer] [facility] HMO IDPA Care Teams Rivet Flunky Relationship Specialty Start Date End Date Nicolette Duncan MD [address] [place] [address] PCP - General Family Medicine 02/05/21
--- OUTSIDE RECORDS SUMMARY | 2024-12-16 03:50 | XMS_ITS | Continuity of Care Document ---
Author Organization [facility] Address [address] [place] [address] Phone Care Team Providers Care Pack Press Operator Name Role Phone Malissa Jim PTA Unavailable Unavailable Procedures Procedure Date Therapeutic Activities Neuromuscular Re-Ed Therapeutic Exercise Manual Therapy Neuromuscular Re-Ed Therapeutic Activities Therapeutic Exercise Manual Therapy Therapeutic Activities Manual Therapy Neuromuscular Re-Ed Therapeutic Exercise PT Evaluation Low Complexity Therapeutic Activities Neuromuscular Re-Ed Free Assessment Void Encounter Advance Directives Directive Yes / No Effective Date File Name No Information Encounters Encounter Description Practice Location Reason(s) For Visit Diagnoses Date Provider Providers Copied on Encounter [facility], [place], [place], [id number], [place] tel:[phone] [place] No Information Hernán Leonardo. . [facility], [place], [place], [id number], tel:[phone] [place] No Information Hernán Leonardo. . Referring Provider: Nicolette Calle, [address] [facility], [place], [address]. tel:[phone] [facility] [address], [place], [place], [id number], tel:[phone] [place] No Information [place] Malissa. . Referring Provider: Nicolette Calle, [address] [facility], [place], [address]. tel:[phone] [facility] [address] [address], [place], [place], [id number], [place] tel:[phone] [place] No Information [place] Malissa. . Referring Provider: Nicolette Calle, [address] [facility], [place], [address]. tel:[phone] [place] [address] [address] [address], [place], [place], [id number], tel:[phone] [place] No Information Quintonaaron Fernandez. . Referring Provider: Nicolette Calle, [address] [facility], [place], [address]. tel:[phone] [place] [id number] [address] [address], [place], [place], [id number], [place] tel:[phone] [place] No Information Heslin Yunior. . Referring Provider: Physician Screen. [facility] [address], [place], [place], [id number], [place] tel:[phone] [place] No Information Heslin Yunior. . Referring Provider: Physician Screen. Family History Family Member Type Diagnosis Age At Onset No Information Payers Payer name Insurance type Covered constitution party ID Juanita jang(s) [facility] [id number] Social History Type Description Quantity Date Captured [...]
--- OUTSIDE RECORDS SUMMARY | 2024-12-16 03:50 | XMS_ITS | Clinical Summary ---
Author Organization [facility] [place] Address [address] [address] Care Team Providers Care Sealer Aircraft Name Role Phone Nicolette Duncan MD Primary [...] counseling. Assessment & Plan (08/14/2021 9:31 AM CENTER MEDICAL SPECIALIST): She has lost weight since her last [...] agreement. Assessment & Plan (08/14/2021 9:27 AM CENTER MEDICAL SPECIALIST): Currently uncontrolled Will start daily metformin 500 [...] on file Legal Sex Female 12:13 AM CENTER MEDICAL SPECIALIST Gender Identity Not on file Sexual Orientation [...] Most Recently Relevant to Health Maintenance [facility] Care Teams Sealer Aircraft Relationship Specialty Start Date End Date Nicolette Duncan MD [address] [place] [address] PCP - General Family Medicine 02/05/21
--- OUTSIDE RECORDS SUMMARY | 2024-12-16 03:50 | XMS_ITS | Clinical Summary ---
Author Organization [facility] Address [address] [facility] [place] [address] Care Team Providers Care Nutritionist Name Role Phone Unavailable Primary Care Provider Unavailabl e Source Comments [facility],non-owned Affiliates and Associated Physician Practices is amultiple site organization consisting of ambulatory clinics and hospital sitesin [place], [place], [place] and [place]. This disclosure is being madepursuant to the Care Everywhere program and may not contain all information available regarding this patient. Last updated 18.[facility] Social History Tobacco Use Types Packs/Day Years [...]
--- OUTSIDE RECORDS SUMMARY | 2024-12-16 03:50 | XMS_ITS | Clinical Summary ---
Author Organization [facility] Care Team Providers Care Grounds Cleaner Name Role Phone Unavailable Primary Care Provider Unavailabl e Social History Tobacco Use Types Packs/Day Years Used Date Smoking Tobacco: Never Assessed Comments Unknown Sex and Gender Information Value Date Recorded Sex Assigned at Not on file Legal Sex Female 10:52 AM SEWING MACHINE OPERATOR Gender Identity Not on file Sexual Orientation [...]
== END 2024-12-16 05:40 | disposition home or self-care (01) ==
PROVIDERS: Emergency Provider Student in an Organized Health Care Education/Training Program; PCP Family Medicine
DX: R07.9 Chest pain, unspecified (principal); R10.13 Epigastric pain; Z79.85 Long-term (current) use of injectable non-insulin antidiabetic drugs; R94.31 Abnormal electrocardiogram [ECG] [EKG]
CPT/HCPCS: 36415; 71045; 80053; 81001; 81025; 83690; 85025; 87086; 93005; 96374; 99284; A9270

== ENCOUNTER 2025-01-10 11:02 | Outpatient (CLI) | payer OTHER, SELFPAY ==
--- NOTE | ~2025-01-10 | US_ITS ---
US breast LT limited INDICATION: Left breast lump TECHNIQUE: Dedicated Limited left breast ultrasound COMPARISON: No prior studies for comparison. FINDINGS: The left breast is/are composed of normal heterogeneous echotexture without focal solid or cystic mass. IMPRESSION: 1: Normal limited left breast ultrasound. BI-RADS CATEGORY 1 - NEGATIVE Reviewed, dictated and finalized at location B.
--- OUTSIDE RECORDS SUMMARY | 2025-01-10 11:11 | XMS_ITS | Referral Summary ---
Author Organization [address] Address [address] [phone] Care Team Providers Care Log Marker Name Role Phone Nicolette Duncan MD Primary Care Provi blair Encounters Date Type Department Care Team Description 12/23/2024 1:30 PM CDT Office Visit [facility] Family Medicine [address] [place] [phone] Niharika Ozuna PA LUQ abdominal pain (Primary Dx); Nausea; Class 3 severe obesity due to excess calories without serious comorbidity with body mass index (BMI) of 40.0 to 44.9 in adult from Last 3 Months Allergies No known active allergies Medications Zepbound 12.5 mg/0.5 mL pen injector Take 0.5 mL (12.5 mg total) by mouth daily 11/08/2024 Active minoxidiL (LONITEN) 2.5 mg tabletIndicatio ns:hypertension Take 0.5 tablets (1.25 mg total) by mouth daily Active famotidine (PEPCID) 20 mg tablet Take 1 tablet (20 mg total) by mouth 2 (two) times a day 12/16/2024 Active dicyclomine (BENTYL) 10 mg capsule Take 1 capsule (10 mg total) by mouth 3 (three) times a day as needed (stomach cramps) Take before meals. 60 capsule 12/23/2024 Active Active Problems Problem Noted Date Diagnosed Date [...] please contact the office. I strongly encourage Aspect[employer] sign ups. It can facilitate communication flow. Please contact the office for instructions on signing up. Class 3 severe obesity due t o excess calories without serious comorbidity with body mass index (BMI) of 40.0 to 44.9 in adult 04/04/2021 Assessment & Plan (04/01/2023 10:31 AM CDT): Chronic, with improvement BMI Follow-up includes: nutrition counseling. Assessment & Plan (08/14/2021 9:31 AM PRACTICE REPRESENTATIVE): She has lost weight since her last [...] agreement. Assessment & Plan (08/14/2021 9:27 AM PRACTICE REPRESENTATIVE): Currently uncontrolled Will start daily metformin 500 [...] / HiB 01/12/2001 IPV 11/30/2004 Influenza, Unspecified 03/30/2024(Deferr ed: Patient decision),04/01/2023(Deferred: Patient Refused),03/30/2022(Deferred: Patient decision),08/14/2021(Deferred: Patient Refused),03/30/2020(Deferred: Patient Refused) MMR 11/30/2004,01/12/2001 Pneumococcal Conjugate 7-Valent 08/21/2001 Tdap 04/01/2023(Deferred: Patient Ref used) Varicella 01/12/2001 Social History Tobacco Use Types Packs/Day Years Used Date Smoking Tobacco: Never Tobacco Cessation:Counseling Given: Not Answered AUDIT-C Answer Date Recorded Q1: How often do you have a drink containing alc ohol? Monthly or less 12/23/2024 Q2: How many drinks containi ng alcohol do you have on a typical day when you are drinking? 1 or 2 12/23/2024 Q3: How often do you have si x or more drinks on one occasion? Never 12/23/2024 PHQ-2 Answer Date Recorded PHQ-2 Total Score (If total score is 3 or more points, staff should administer the PHQ-9) 0 12/23/2024 Comments No Sex and Gender Information Value Date Recorded Sex Assigned at Not on file Legal Sex Female 12:13 AM PRACTICE REPRESENTATIVE Gender Identity Not on file Sexual Orientation Not on file Last Filed Vital Signs Vital Sign Reading Time Taken Comments Blood Pressure 110/70 12/23/2024 1:38 PM CDT Pulse 100 12/23/2024 1:38 PM CDT Temperature 36.7 C (98 F) 12/23/2024 1:38 PM CDT Respiratory Rate 16 12/23/2024 1:38 PM CDT Oxygen Saturation 99% 12/23/2024 1:38 PM CDT Inhaled Oxygen Concentration - - Weight 131.6 kg (290 lb 3.2 oz) 12/23/2024 1:38 PM CDT Height 175.3 cm (5' 9) 12/23/2024 1:38 PM CDT Body Mass Index 42.86 12/23/2024 1:38 PM CDT Plan of Treatment Not on file Insurance [employer] [facility] HMO IDPA Care Teams Log Marker Relationship Specialty Start Date End Date Nicolette Duncan MD [address] [place] [address] PCP - General Family Medicine 02/05/21
--- OUTSIDE RECORDS SUMMARY | 2025-01-10 11:11 | XMS_ITS | Clinical Summary ---
Author Organization [facility] Care Team Providers Care Plant Physiology Teacher Name Role Phone Unavailable Primary Care Provider Unavailabl e Social History Tobacco Use Types Packs/Day Years Used Date Smoking Tobacco: Never Assessed Comments Unknown Sex and Gender Information Value Date Recorded Sex Assigned at Not on file Legal Sex Female 10:52 AM POWER LINEMAN Gender Identity Not on file Sexual Orientation [...]
--- OUTSIDE RECORDS SUMMARY | 2025-01-10 11:11 | XMS_ITS | Clinical Summary ---
Author Organization [facility] Address [address] [address] Care Team Providers Care Mixing Tank Operator Name Role Phone Nicolette Duncan MD Primary Care Provi blair Allergies No known active allergies Medications Zepbound [...] please contact the office. I strongly encourage Volt[employer]hart sign ups. It can facilitate communication flow. Please contact the office for instructions on signing up. Class 3 severe obesity due t o excess calories without serious comorbidity with body mass index (BMI) of 40.0 to 44.9 in adult 04/04/2021 Assessment & Plan (04/01/2023 10:31 AM CDT): Chronic, with improvement BMI Follow-up includes: nutrition counseling. Assessment & Plan (08/14/2021 9:31 AM LEASE ADMINISTRATION ANALYST): She has lost weight since her last [...] appointment (laboratory requisition given). 2. See website: [employer] for patient information handouts on healthy eating [...] agreement. Assessment & Plan (08/14/2021 9:27 AM LEASE ADMINISTRATION ANALYST): Currently uncontrolled Will start daily metformin 500 [...] any changes Call for questions or concerns Encounters Date Type Department Care Team Description 12/23/2024 1:30 PM CDT Office Visit [facility] Family Medicine [address] [phone] Niharika Ozuna PA LUQ abdominal pain (Primary Dx); Nausea; Class 3 severe obesity due to excess calories without serious comorbidity with body mass index (BMI) of 40.0 to 44.9 in adult from Last 3 Months Immunizations Immunization Administration Dates Next Due DTaP [...] on file Legal Sex Female 12:13 AM LEASE ADMINISTRATION ANALYST Gender Identity Not on file Sexual Orientation [...] 12/23/2024 1:38 PM CDT Plan of Treatment Health Maintenance Due Date Last Done Comments Hepatitis C Screening 2000 Varicella Vaccines (2 of 2 - 2-dose childhood series) 2004 01/12/2001 DTaP/Tdap/Td Vaccine (3 - Tdap) 01/09/2011 11/30/2004, 04/14/2001 HPV Vaccines (1 - 3-dose series) 01/09/2015 Covid-19 Vaccine ( season) 2024 11/11/2020, 10/13/2020 Regular Well Visit/Exam 18-64 04/01/2024 04/01/2023, 04/01/2023 Cervical Cancer Screening 04/02/2024 04/02/2023 Influenza Vaccine (#1) 2025 Depression Screening 12/23/2025 12/23/2024, 04/01/2023, 08/14/2021, Additional history exists Hepatitis B Screening Completed 01/12/2001 Pneumococcal vaccine <65 Aged Out 08/21/2001 No longer eligible based on patient's age to complete this topic Insurance [facility] HMO IDPA Care Teams Mixing Tank Operator Relationship Specialty Start Date End Date Nicolette Dnucan MD [address] [place] [address] PCP - General Family Medicine 02/05/21
--- OUTSIDE RECORDS SUMMARY | 2025-01-10 11:12 | XMS_ITS ---
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 What is your typical eating [...] Never a smoker. 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 T obacco Use: H istory D o [...] * Electronic signature of Girish Lala DO, [id number] on 2025 at 11:11 AM CDT Sign off status: Pending * Provider: Isabell Lala DO Date: 1 08/04/2023 Generated for Lolis daily/Vamsi/Orestse on: 0 2025 11:11 AM CDT History and Physical Notes * [...] (_select all that apply) Fast Food,Carbohydrates,Sweets,Emotional Eating ([id number]),Poor Food Choices What is your typical eating [...]
--- OUTSIDE RECORDS SUMMARY | 2025-01-10 11:12 | XMS_ITS | Clinical Summary ---
Author Organization [facility] Address [address] [place] [address] Care Team Providers Care Mill Hand Plate Mill Name Role Phone Unavailable Primary Care Provider Unavailabl e Source Comments [facility],non-owned Affiliates and Associated Physician Practices is amultiple site organization consisting of ambulatory clinics and hospital sitesin [place], [place]. This disclosure is being madepursuant to the Care Everywhere program and may not contain all information available regarding this patient. Last updated 18.[facility] Social History Tobacco Use Types Packs/Day Years Used Date Smoking Tobacco: Never Assessed Comments Unknown Sex and Gender Information Value Date Recorded Sex Assigned at Not on file Legal Sex Female 10:00 AM CDT Gender Identity Not on file Sexual Orientation Not on file Plan of Treatment Health Maintenance Due Date Last Done Comments HIV SCREENING 01/09/2015 HPV VACCINE (1 - 3-dose series) 01/09/2015 CHLAMYDIA/GONORRHEA SCREENING 2016 HEPATITIS C SCREENING 01/05/2018 DTAP/TDAP/TD VACCINES (1 - Tdap) 01/09/2019 HEPATITIS B VACCINE (1 of 3 - 19+ 3-dose series) 01/09/2019 PAP SMEAR 01/09/2021 COVID-19 VACCINE (1 - 2023-2 5 season) 2024 DEPRESSION SCREENING 06/30/2024 INFLUENZA VACCINE (#1) 2025 ZOSTER VACCINE (1 of 2) 01/09/2050 [...]
--- OUTSIDE RECORDS SUMMARY | 2025-01-10 11:12 | XMS_ITS | Patient Health Record ---
Author Organization [facility] [employer] [facility] Address [address] [facility] [address] [place] [address] Care Team Providers Care Payroll Auditor Name Role Phone Navin Mei Unavailable [phone] Reason For Referral No Information Medications Medication SIG (Take, Route, Frequency, Duration) Notes Start Date End Date Status Venlafaxine HCl ER 150 MG Oral 08/15/2020 Active hydrOXYzine HCl 25 MG Oral 08/15/2020 Active Venlafaxine HCl ER 75 MG Oral 08/15/2020 Active Immunizations Vaccine Route Administration Date Status Comme nts MMR Unknown 11/30/2004 Administered IPV Unknown 11/30/2004 Administered DTaP Unknown 11/30/2004 Administered Plan Of Treatment No Information
--- OUTSIDE RECORDS SUMMARY | 2025-01-10 11:12 | XMS_ITS ---
Author Organization [facility] Address [address] [place], [place] [id number] Care Team Providers Care Solar Systems Designer Name Role Phone Lala DO Horace Unavailable [phone] Santos EVANS, Jennifer Unavailable Encounters Encounter Location Date Provider Diagnosis [facility] [address] [facility] [address] [place], [place] [phone] 06/03/2024 Jennifer Graham Plan Of Treatment No Information Progress Notes * Jenni FIGUEROADOB:[birth year] (25 yo F)Acc No.[id number]:06/03/2024 Patient: Jenni GUO Provider: Reg Graham RD :2000 A ge:24 Y S ex:Female Date:06/03/2024 Address:[address] [place], [place] [id number] Subjective: * Chief Complaints: * * Medical History: Objective: * Vitals: Assessment: Plan: * Treatment: * Billing Information: * Visit Code: * Procedure Codes: * Electronic signature of Kristy Graham RD on 2025 at 11:12 AM CDT Sign off status: Pending * Provider: Reg Graham RD Date: 08/04/2023 Generated for Pali ng/Faxing/eTransmitting on: 0 2025 11:12 AM CDT
--- OUTSIDE RECORDS SUMMARY | 2025-01-10 11:12 | XMS_ITS | Encounter Summary ---
Author Organization [facility] Address [address] [place] [address] Care Team Providers Care Coat Room Attendant Name Role Phone Unavailable Primary Care Provider Unavailabl e Encounter Details Date Type Department Care Team (Late st Contact Info) Description 04/22/2023 Lab Requisition [facility] - DermPath Lab [address] [facility] [place] [address] Frandy Kelly MD [facility] DER[facility] [address] [place] [phone] Neoplasm of uncertain behavior of skin [...] AM CDT) Case Report Dermatopathology Report Case: [id number] Authorizing Provider: Frandy Kelly MD Collected: 04/22/2023 03:33 AM Ordering Location: [facility] DermPath Lab Received: 04/23/2023 01:17 PM [...] characteristic determined by the Dermatopathology Laboratory at [facility], directed by Dr. Rico Lopez. These tests need not be, and therefore are not, approved by the [place] Food and Drug Administration. The tests are used for clinical purposes. Billing Codes Specimen Charges Stain Charges 72415 14504 1 1 3 3:32 PM CDT DERMATOPATHOLOGY LABORATORY Embedded Images 3:32 PM CDT DERMATOPATHOLOGY LABORATORY Pathology/Cytology TISSUE SPECIMEN FROM SKIN / Unknown 04/22/2023 3:33 AM CDT 04/23/2023 1:17 PM CDT Miscellaneous samples (specimen) TISSUE SPECIMEN FROM SKIN / Unknown 04/22/2023 3:33 AM CDT 04/23/2023 1:17 PM CDT us Frandy Kelly MD LAB - PATHOLOGY/CYTOLOGY JOSSE SHORT Final Result DERMATOPATHOLOGY LABORATORY [facility] - Department of Dermatology [facility] Specialized Medicine [address] [place] [address], [address] [phone] documented in this encounter Visit Diagnoses Diagnosis Neoplasm of uncertain behavior of skin documented in this encounter
== END 2025-01-10 11:03 | disposition home or self-care (01) ==
LOC: ANHIMG 11:06
PROVIDERS: PCP Family Medicine; Visit Provider Obstetrics & Gynecology
DX: N63.23 Unspecified lump in the left breast, lower outer quadrant (principal)
CPT/HCPCS: 76642

== ENCOUNTER 2025-04-26 17:09 | Emergency (ER) | payer OTHER, SELFPAY ==
--- OUTSIDE RECORDS SUMMARY | 2021-10-22 13:17 | XMS_ITS | Continuity of Care Document ---
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 Role Phone Malissa Jim PTA Unavailable Unavailable Procedures Procedure Date Therapeutic Activities Neuromuscular Re-Ed Therapeutic Exercise Manual Therapy Therapeutic Activities Neuromuscular Re-Ed Therapeutic Exercise Manual Therapy Therapeutic Activities Neuromuscular Re-Ed Therapeutic Exercise Manual Therapy PT Evaluation Low Complexity Therapeutic Activities Neuromuscular Re-Ed Free Assessment Void Encounter Advance Directives Directive Yes / No Effective Date File Name No Information Encounters Encounter Description Practice Location Reason(s) For Visit Diagnoses Date Provider Providers Copied on Encounter [facility], [place], [place], [id number], [place] tel:[phone] [place] No Information Hernán Leonardo. . [facility], [place], [place], [id number], tel:[phone] [place] No Information Hernán Leonardo. . Referring Provider: Nicolette Calle, [address] [facility], [place], [address]. tel:[phone] [facility] [address], [place], [place], [id number], tel:[phone] [place] No Information Scheldt Malissa. . Referring Provider: Nicolette Calle, [address] [facility], [place], [address]. tel:[phone] [facility] [address] [address], [place], [place], [id number], [place] tel:[phone] [place] No Information Scheldt Malissa. . Referring Provider: Nicolette Calle, [address] [facility], [place], [address]. tel:[phone] [place] [address] [address] [address], [place], [place], [id number], tel:[phone] [place] No Information Quintonaaron Fernandez. . Referring Provider: Nicolette Calle, [address] [facility], [place], [address]. tel:[phone] [place], [place] [id number] [address] [address], [place], [place], [id number], [place] tel:[phone] [place] No Information Heslin Yunior. . Referring Provider: Physician Screen. [facility] [address], [place], [place], [id number], [place] tel:[phone] [place] No Information Heslin Yunior. . Referring Provider: Physician Screen. Family History Family Member Type Diagnosis Age At Onset No Information Payers Payer name Insurance type Covered libertarian ID Juanita jang(s) [facility] [id number] Social History Type Description Quantity Date Captured Comments Sex Female Smoking Status No Information Chief Complaint And Reason For Visit No Information Reason For Referral Reason For Referral No Information History Of Present Illness Encounter Date Complaint History Of Prese nt Illness No Information Functional Status Date Functional Assessmen t No Information Instructions Date Instruction Additional Infor mation Prescribed activity/exercise edu cation Related to Overweight Dietary needs education Related to Overweight Assessments Type Assessment Date No Information Patient Care Teams Name Effective Dates (start - stop) Status Members No Information
--- OUTSIDE RECORDS SUMMARY | 2021-10-22 13:17 | XMS_ITS | Continuity of Care Document ---
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 Name Role Phone Malissa Jim PTA Unavailable Unavailable Procedures Procedure Date Neuromuscular Re-Ed Therapeutic Activities Manual Therapy Therapeutic Exercise Neuromuscular Re-Ed Therapeutic Activities Therapeutic Exercise Manual Therapy Therapeutic Activities Manual Therapy Therapeutic Exercise Neuromuscular Re-Ed PT Evaluation Low Complexity Neuromuscular Re-Ed Therapeutic Activities Free Assessment Void Encounter Advance Directives Directive Yes / No Effective Date File Name No Information Encounters Encounter Description Practice Location Reason(s) For Visit Diagnoses Date Provider Providers Copied on Encounter [facility], [place], [place], [id number], [place] tel:[phone] [place] No Information Hernán Leonardo. . [facility], [place], [place], [id number], tel:[phone] [place] No Information Hernán Leonardo. . Referring Provider: Nicolette Calle, [address] [facility], [place], [address]. tel:[phone] [facility] [address], [place], [place], [id number], tel:[phone] [place] No Information Scheldt Malissa. . Referring Provider: Nicolette Calle, [address] [facility], [place], [address]. tel:[phone] [facility] [address] [address], [place], [place], [id number], [place] tel:[phone] [place] No Information Scheldt Malissa. . Referring Provider: Nicolette Calle, [address] [facility], [place], [address]. tel:[phone] [place] [address] [address] [address], [place], [place], [id number], tel:[phone] [place] No Information Quintonaaron Fernandez. . Referring Provider: Nicolette Calle, [address] [facility], [place], [address]. tel:[phone] [place], [place] [address] [address] [address], [place], [place], [address], [place] tel:[phone] [place] No Information Heslin Yunior. . Referring Provider: Physician Screen. [facility] [address], [place], [place], [id number], [place] tel:[phone] [place] No Information Heslin Yunior. . Referring Provider: Physician Screen. Family History Family Member Type Diagnosis Age At Onset No Information Payers Payer name Insurance type Covered constitution party ID Juanita jang(s) [facility] [id number] Social History Type Description Quantity Date Captured [...]
--- OUTSIDE RECORDS SUMMARY | 2024-06-03 10:45 | XMS_ITS ---
Author Organization [facility] Address [address] [place], [place] [id number] Care Team Providers Care Global Logistics Analyst Name Role Phone Horace Lala DO Unavailable [phone] Allergies No Known Allergies REASON FOR VISIT KETTLE SKIMMER- patient requested Discuss Both Surgical & Medical Weight Loss but has a qualifying BMI for weight loss surgery Encounters Encounter Location Date Provider Diagnosis [facility] [address] [facility] [address] [place], [place] [id number] 06/03/2024 Horace Lala Plan Of Treatment No [...] * Jenni FIGUEROADOB:[birth year] (25 yo F)Acc No.[id number]:06/03/2024 Patient: Jenni GUO Provider: Isabell Lala DO :2000 A ge:24 Y S ex:Female Date:06/03/2024 Address:[address] [id number] Subjective: * Chief Complaints: * 1 . KETTLE SKIMMER- patient requested Discuss Both Surgical & Medical [...] all that apply) F ast Food,Carbohydrates,Sweets,Emotional Eating ([id number]),Poor Food Choices. What is your typical eating [...] Never a smoker. 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 T obacco Use: H istory D o [...] * Electronic signature of Girish Lala DO, [id number] on 04/26/2025 at 05:59 PM CDT Sign off status: Pending * Provider: Isabell Lala DO Date: 08/04/2023 Generated for Lolis daily/Vamsi/Orestes on: 05:59 PM CDT History and Physical Notes * HPI (History [...] (_select all that apply) Fast Food,Carbohydrates,Sweets,Emotional Eating ([id number]),Poor Food Choices What is your typical eating [...] feel w eight was a problem? Around 2020 How long have you felt you were [...]
--- OUTSIDE RECORDS SUMMARY | 2024-06-03 11:15 | XMS_ITS ---
Author Organization [facility] Address [address] [place], [place] [id number] Care Team Providers Care Make Up Artist Name Role Phone Spike KAPLAN Horace Unavailable [phone] Santos EVANS, Jennifer Unavailable Encounters Encounter Location Date Provider Diagnosis [facility] [address] [facility] [address] [place], [place] [id number] 06/03/2024 Jennifer Graham Plan Of Treatment No Information Progress Notes * Jenni FIGUEROADOB:[birth year] (25 yo F)Acc No.[id number]:06/03/2024 Patient: Jenni GUO Provider: Reg Graham RD :2000 A ge:24 Y S ex:Female Date:06/03/2024 Address:[address] [place], [place] [id number] Subjective: * Chief Complaints: * * Medical History: Objective: * Vitals: Assessment: Plan: * Treatment: * Billing Information: * Visit Code: * Procedure Codes: * Electronic signature of Kristy Graham RD on 04/26/2025 at 05:59 PM CDT Sign off status: Pending * Provider: Reg Graham RD Date: 08/04/2023 Generated for Pali ng/Fakiag/eTransmitting on: 1 05:59 PM CDT
--- NOTE | ~2025-04-26 | US_ITS ---
LEFT LOWER EXTREMITY VENOUS DUPLEX Clinical History: r/o DVT COMPARISON: 06/25/2024 TECHNIQUE: Grayscale, color, duplex/spectral Doppler sonography left leg FINDINGS: Left leg common femoral, femoral, popliteal, and calf veins compressible and color Doppler patent. Normal augmentation with distal compression. No internal echoes. IMPRESSION: 1. No left leg DVT. Reviewed, dictated and finalized at location R. IMPRESSION: 1. No left leg DVT.
[2025-04-26 17:45] VITALS: BP 149/97; PULSE 101; RESP 17; TEMP 36.3; O2SAT 100
--- OUTSIDE RECORDS SUMMARY | 2025-04-26 17:59 | XMS_ITS | Clinical Summary ---
Author Organization [address] Address [address] [address] Care Team Providers Care News Assistant Name Role Phone Nicolette Duncan MD Primary Care Provi blair Allergies No known active allergies Medications minoxidiL (LONITEN) 2.5 mg tabletIndicatio ns:hypertension Take 0.5 tablets (1.25 mg total) by mouth daily Active polycarbophil (FIBERCON) 625 mg tablet Take 1 tablet (625 mg total) by mouth daily 30 tablet 11 5 01/22/20 26 Active famotidine (PEPCID) 20 mg tablet Take 1 tablet (20 mg total) by mouth 2 (two) times a day as needed for heartburn or indigestion 60 tablet 2 5 Active omeprazole (PriLOSEC) 20 mg capsuleIndicati ons:gerd Take 1 capsule (20 mg total) by mouth daily before breakfast 30 capsule 3 5 Active tiZANidine (ZANAFLEX) 4 mg tablet Take 1 tablet (4 mg total) by mouth nightly as needed for muscle spasms 20 tablet 5 Active buPROPion XL (WELLBUTRIN XL) 300 mg 24 hr tablet Take 1 tablet (300 mg total) by mouth every morning 30 tablet 2 5 05/26/20 25 Active Active Problems Problem Noted Date Diagnosed Date Calculus of gallbladder with out cholecystitis without obstruction 04/13/2025 Assessment & Plan (04/13/2025 3:15 PM CDT): Dry eye syndrome of both eyes 02/25/2025 Assessment & Plan (02/25/2025 6:10 PM CDT): Conjunctival erythema noted. Morbid obesity with BMI of 40.0-44.9, adult 01/29 Assessment & Plan (02/25/2025 6:10 PM CDT): Gastroesophageal reflux disease 02/24/2025 Assessment & Plan (04/13/2025 3:15 PM CDT): Constipation 02/24/2025 Gallbladder polyp 02/22/2025 Assessment & Plan (02/22/2025 4:01 PM CDT): Patient has a gallbladder polyp, last ultrasound in 2021 showed that it was 0.5 cm in size and stable with prior ultrasound. Recommend repeat right upper quadrant ultrasound to evaluate size of gallbladder polyp. If gallbladder polyp has continued to grow in size, we will consider referral to General surgery in the future if needed. Orders: omeprazole (PriLOSEC) 20 mg capsule; Take 1 capsule (20 mg total) by mouth daily before breakfast RUQ Ultrasound; Future Case Request Operating Room: ESOPHAGOGASTRODUODENOSCOPY, COLONOSCOPY bisacodyl EC (DULCOLAX EC) 5 mg EC tablet; Take 1 tablet (5 mg total) by mouth daily as needed for constipation ondansetron ODT (ZOFRAN-ODT) 4 mg disintegrating tablet; Take 1 tablet (4 mg total) by mouth every 6 (six) hours as needed for nausea or vomiting polyethylene glycol (GoLYTELY) 236-22.74-6.74 -5.86 gram solution; Take 4,000 mL by mouth once for 1 dose Change in bowel habits 02/22/2025 Assessment & Plan (02/22/2025 4:01 PM CDT): She reports a mixed bowel habits, rotating constipation and diarrhea. Possibly due to constipation with overflow diarrhea, recommend MiraLax 1 capful once daily and titrating up at the discretion of the patient. Also recommend pgnz-lzw-bvleels fiber supplement continuation. Due to association with bloating, blood in the stool, recommend colonoscopy as next steps and further evaluation. Orders: omeprazole (PriLOSEC) 20 mg capsule; Take 1 capsule (20 mg total) by mouth daily before breakfast RUQ Ultrasound; Future Case Request Operating Room: ESOPHAGOGASTRODUODENOSCOPY, COLONOSCOPY bisacodyl EC (DULCOLAX EC) 5 mg EC tablet; Take 1 tablet (5 mg total) by mouth daily as needed for constipation ondansetron ODT (ZOFRAN-ODT) 4 mg disintegrating tablet; Take 1 tablet (4 mg total) by mouth every 6 (six) hours as needed for nausea or vomiting polyethylene glycol (GoLYTELY) 236-22.74-6.74 -5.86 gram solution; Take 4,000 mL by mouth once for 1 dose Assessment & Plan (02/22/2025 4:01 PM CDT): Patient reports constipation with mixed diarrhea, reports she feels like she has to strain to have every bowel movement. Reports constipation with every other bowel movement followed by diarrhea. She also reports associated left lower quadrant abdominal pain. Recommend patient to start MiraLax 1 capful once daily and titrate up at her discretion. She continues nknv-hul-avivxik fiber supplement daily. If fphi-eaf-hbfyksh regimen is not adequate, can consider prescription options such as Linzess in the future. Maybe due to a component of irritable bowel syndrome, however recommend colonoscopy as next steps and further evaluation to rule out other causes. Bloating 02/22/2025 Assessment & Plan (02/22/2025 4:01 PM CDT): She reports abdominal bloating associated with indigestion, constipation and diarrhea as well as left lower quadrant abdominal pain. May be due to a component of irritable bowel syndrome, but recommend EGD and colonoscopy as next steps and further evaluation to rule out other causes. Orders: omeprazole (PriLOSEC) 20 mg capsule; Take 1 capsule (20 mg total) by mouth daily before breakfast RUQ Ultrasound; Future Case Request Operating Room: ESOPHAGOGASTRODUODENOSCOPY, COLONOSCOPY bisacodyl EC (DULCOLAX EC) 5 mg EC tablet; Take 1 tablet (5 mg total) by mouth daily as needed for constipation ondansetron ODT (ZOFRAN-ODT) 4 mg disintegrating tablet; Take 1 tablet (4 mg total) by mouth every 6 (six) hours as needed for nausea or vomiting polyethylene glycol (GoLYTELY) 236-22.74-6.74 -5.86 gram solution; Take 4,000 mL by mouth once for 1 dose Abdominal pain 02/22/2025 Assessment & Plan (02/22/2025 4:01 PM CDT): Patient reports left lower quadrant abdominal pain. Could possibly be due to a component of irritable bowel syndrome with constipation and/or diarrhea, however due to association with bloating and other symptoms, recommend EGD and colonoscopy as next steps and further evaluation. Orders: omeprazole (PriLOSEC) 20 mg capsule; Take 1 capsule (20 mg total) by mouth daily before breakfast RUQ Ultrasound; Future Case Request Operating Room: ESOPHAGOGASTRODUODENOSCOPY, COLONOSCOPY bisacodyl EC (DULCOLAX EC) 5 mg EC tablet; Take 1 tablet (5 mg total) by mouth daily as needed for constipation ondansetron ODT (ZOFRAN-ODT) 4 mg disintegrating tablet; Take 1 tablet (4 mg total) by mouth every 6 (six) hours as needed for nausea or vomiting polyethylene glycol (GoLYTELY) 236-22.74-6.74 -5.86 gram solution; Take 4,000 mL by mouth once for 1 dose Blood in stool 01/25/2025 Assessment & Plan (02/22/2025 4:01 PM CDT): She reports she had some rectal bleeding and blood in the stool around November, associated with abdominal bloating, constipation, and indigestion. Possibly due to hemorrhoids or fissure from straining to have to have a bowel movement, but recommend colonoscopy as next steps and further evaluation due to association with abdominal bloating, constipation with diarrhea, and indigestion. Orders: omeprazole (PriLOSEC) 20 mg capsule; Take 1 capsule (20 mg total) by mouth daily before breakfast RUQ Ultrasound; Future Case Request Operating Room: ESOPHAGOGASTRODUODENOSCOPY, COLONOSCOPY bisacodyl EC (DULCOLAX EC) 5 mg EC tablet; Take 1 tablet (5 mg total) by mouth daily as needed for constipation ondansetron ODT (ZOFRAN-ODT) 4 mg disintegrating tablet; Take 1 tablet (4 mg total) by mouth every 6 (six) hours as needed for nausea or vomiting polyethylene glycol (GoLYTELY) 236-22.74-6.74 -5.86 gram solution; Take 4,000 mL by mouth once for 1 dose Anxiety 01/21/2025 Assessment & Plan (04/13/2025 3:15 PM CDT): Chronic, improved Continue wellbutrin Continue healthy changes Assessment & Plan (01/21/2025 2:33 PM CDT): W mild agoraphobia W adverse childhood events Follows w/ oral surgery physician Well adult exam 04/01/2023 Overview (04/13/2025): Discussed healthy diet and disease prevention- reviewed working on healthy diet, regular physical activity to your level, wearing sun screen, seat belts. Health Maintenance: Last PAP: through [facility], will request Last Tdap: eencouraged Last Flu: encouraged Last COVID: encouraged Assessment & Plan (04/13/2025 3:15 PM CDT): Discussed healthy diet and disease prevention- reviewed working on healthy diet, regular physical activity to your level, wearing sun screen, seat belts. Health Maintenance: Last PAP: through [facility], will request Last Tdap: eencouraged Last Flu: encouraged Last COVID: encouraged Assessment & Plan (01/21/2025 2:33 PM CDT): W mild agoraphobia W adverse childhood events Follows w/ oral surgery physician Assessment & Plan (04/01/2023 10:29 AM CDT): [...] 44.9 in adult 04/04/2021 Assessment & Plan (04/13/2025 3:15 PM CDT): Chronic, improved BMI Follow-up includes: education provided. Assessment & Plan (01/21/2025 2:33 PM CDT): W mild agoraphobia W adverse childhood events Follows w/ oral surgery physician Assessment & Plan (04/01/2023 10:31 AM CDT): Chronic, with improvement BMI Follow-up includes: nutrition counseling. 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 2. See website: AlterGmyplate.gov for patient information handouts on healthy eating [...] she was in agreement. Assessment & Plan (04/13/2025 3:15 PM CDT): Orders: Prolactin; Future DHEA-sulfate; Future Assessment & Plan (01/21/2025 2:33 PM CDT): W mild agoraphobia W adverse childhood events Follows w/ oral surgery physician Assessment & Plan (08/14/2021 9:27 AM MACHINE TURNER): Currently uncontrolled Will start daily metformin 500 [...] Encounters Date Type Department Care Team Description 5 Nurse Triage [facility] [address] [place] [phone] Nicolette Duncan MD 5 Results Follow-Up [address] [phone] Nicolette Duncan MD Hepatitis C antibody, DHEA-sulfate, Prolactin, Additional followed-up results: 4 5 Orders Only [address] [phone] Nicolette Duncan MD 5 1:00 PM CDT Office Visit [address] [phone] Nicolette Duncan MD Well adult exam (Primary Dx); Calculus of gallbladder without cholecystitis without obstruction; Gastroesophageal reflux disease without esophagitis; Upper back pain; Class 3 severe obesity due to excess calories without serious comorbidity with body mass index (BMI) of 40.0 to 44.9 in adult; Polycystic ovarian syndrome; Anxiety; Screening for deficiency anemia; Screening for diabetes mellitus; Screening, lipid; Screening for thyroid disorder; Need for vaccination; Need for hepatitis C screening test 5 Orders Only [facility] at [address] [place] [phone] Natacha Hernandez DNP Gallstones (Primary Dx) 5 Results Follow-Up [facility] at [address] [place] [phone] Natacha Hernandez DNP RUQ Ultrasound 5 6:30 AM CDT - 5 11:59 PM CDT Hospital Encounter [facility] Ultrasound [address] [place] [phone] Gallbladder polyp; Constipation, unspecified constipation type; Bloating; Blood in stool; Change in bowel habits; Abdominal pain; Gastroesophageal reflux disease, unspecified whether esophagitis present Discharge Disposition: Discharge to home or self care 5 Results Follow-Up [facility] at [address] [place] [phone] Arthur Murphy MD Surgical pathology 5 1:12 PM CDT Anesthesia Event [facility] [address] [place] [address] Henry Sands MD 5 1:00 PM CDT - 5 1:30 PM CDT Surgery [facility] [address] [place] [phone] Arthur Murphy MD ESOPHAGOGASTRODUODENOSCOPY BIOPSY 5 11:55 AM CDT - 5 2:38 PM CDT Hospital Encounter [facility] [address] [place] [address] Arthur Murphy MD Gastroesophageal reflux disease, unspecified whether esophagitis present; Abdominal pain; Change in bowel habits; Blood in stool; Bloating; Constipation, unspecified constipation type; Gallbladder polyp Discharge Disposition: Discharge to home or self care 5 3:30 PM CDT Office Visit [facility] [address] [phone] Dawood Torres MD Chest pain, unspecified type (Primary Dx); Dry eye syndrome of both eyes; Acute pain of left shoulder; Paresthesias; Morbid obesity with BMI of 40.0-44.9, adult ([facility]) 5 Orders Only [facility] at [address] [phone] Arthur Murphy MD Gastroesophageal reflux disease, unspecified whether esophagitis present (Primary Dx); Abdominal pain; Change in bowel habits; Blood in stool; Bloating; Constipation, unspecified constipation type; Gallbladder polyp 5 3:30 PM CDT Office Visit [facility] at [address] [phone] Natacha Hernandez DNP Gallbladder polyp (Primary Dx); Constipation, unspecified constipation type; Bloating; Blood in stool; Change in bowel habits; Abdominal pain; Gastroesophageal reflux disease, unspecified whether esophagitis present 5 Telephone [facility] at [address] [place] [address] Natacha Hernandez DNP Scheduling Appointments 5 Orders Only [facility] at [address] [place] [phone] Arthur Murphy MD Nausea and vomiting, unspecified vomiting type (Primary Dx); Hematochezia from Last 3 Months Immunizations Immunization Administration Dates Next Due DTaP 11/30/2004,04/14/2001 Hep B / HiB 01/12/2001 IPV 11/30/2004 Influenza, Unspecified 04/13/2025(Deferr ed: Patient Refused),03/30/2024(Deferred: Patient Refused),03/30/2024(Deferred: Patient decision),03/30/2024(Deferred: Patient decision),04/01/2023(Deferred: Patient Refused),03/30/2023(Deferred: Patient Refused),03/30/2022(Deferred: Patient decision),08/14/2021(Deferred: Patient Refused),03/30/2020(Deferred: Patient Refused) MMR 11/30/2004,01/12/2001 Pneumococcal Conjugate 7-Valent 08/21/2001 Tdap 04/13/2025, 3(Deferred: Patient Refused) Varicella 01/12/2001 Surgical History Surgery Date Site/Laterality Comments WISDOM TOOTH EXTRACTION N/A Medical History Medical History Date Comments PCOS (polycystic ovarian syndrome) GERD (gastroesophageal reflux disease) Gallstones Family History Medical History Relation Name Comments Breast cancer Maternal Grandmother Relation Name Status Comments Father Alive Maternal Grandfather Alive Maternal Grandmother Alive Mother Alive Paternal Grandfather Alive Paternal Grandmother Alive Social History Tobacco Use Types Packs/Day Years Used Date Smoking Tobacco: Never Tobacco Cessation:Counseling Given: Not Answered Alcohol Use Standard Drinks/Week Comments Yes 2 (1 standard drink = 0.6 oz pur e alcohol) PHQ-2 Answer Date Recorded PHQ-2 Total Score (If total score is 3 or more points, staff should administer the PHQ-9) 0 04/13/2025 PHQ-9 Answer Date Recorded PHQ-9 Total Score 4 04/13/2025 AUDIT-C Answer Date Recorded Q1: How often do you have a drink containing alc ohol? 2-3 times a week 04/13/2025 Q2: How many drinks containi ng alcohol do you have on a typical day when you are drinking? 1 or 2 04/13/2025 Q3: How often do you have si x or more drinks on one occasion? Never 04/13/2025 Personal Safety Answer Date Recorded Have you ever been in or are you currently in a harmful physical or emotional relationship or is someone making you feel afraid or unsafe? 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 Gender Identity Not on file Sexual Orientation Not on file Obstetrics History Last Filed Vital Signs Vital Sign Reading Time Taken Comments Blood Pressure 126/84 04/13/2025 1:11 PM CDT Pulse 95 04/13/2025 1:11 PM CDT Temperature 35.9 C (96.7 F) 04/13/2025 1:11 PM CDT Respiratory Rate 12 04/13/2025 1:11 PM CDT Oxygen Saturation 98% 04/13/2025 1:11 PM CDT Inhaled Oxygen Concentration - - Weight 132.3 kg (291 lb 9.6 oz) 04/13/2025 1:11 PM CDT Height 175.3 cm (5' 9) 04/13/2025 1:11 PM CDT Body Mass Index 43.06 04/13/2025 1:11 PM CDT Plan of Treatment Health Maintenance Due Date Last Done Comments Varicella Vaccines (2 of 2 - 2-dose childhood series) 12/28/2004 01/12/2001 HPV Vaccines (1 - 3-dose series) 01/09/2015 Cervical Cancer Screening 04/02/2024 04/02/2023 Covid-19 Vaccine ( season) 2025 11/11/2020, 10/13/2020 Influenza Vaccine (#1) 2025 Depression Screening 04/13/2026 04/13/2025, 04/13/2025, 02/25/2025, Additional history exists Regular Well Visit/Exam 18-64 04/13/2026 04/13/2025, 04/01/2023, 04/01/2023 DTaP/Tdap/Td Vaccine (4 - Td or Tdap) 04/13/2035 04/13/2025, 11/30/2004, 04/14/2001 Hepatitis B Screening Completed 01/12/2001 Pneumococcal vaccine <65 Aged Out 08/21/2001 No longer eligible based on patient's age to complete this topic Hepatitis C Screening Completed 04/16/2025 Procedures Procedure Name Priority Date/Time Associated Diagnosis Comments CBC WITH AUTO DIFFERENTIAL Routine 04/16 11:23 AM CDT COMPREHENSIVE METABOLIC PANEL Routine 11:23 AM CDT LIPID PANEL Routine 04/16/2025 11:23 AM CDT THYROID FUNCTION CASCADE Routine 025 11:23 AM CDT PROLACTIN Routine 04/16/2025 11:23 AM CDT DHEA-SULFATE Routine 04/16/2025 11:23 AM CDT HEPATITIS C ANTIBODY Routine 04/16/2025 11:23 AM CDT US RUQ Schedule Routine, Read Routine (OP Routine) 03/23/2025 7:00 AM CDT Gallbladder polyp Constipation, unspecified constipation type Bloating Blood in stool Change in bowel habits Abdominal pain Gastroesophageal reflux disease, unspecified whether esophagitis present SURGICAL PATHOLOGY Routine 03/09/2025 1:21 PM CDT Gastroesophageal reflux disease, unspecified whether esophagitis present Abdominal pain Change in bowel habits Blood in stool Bloating Constipation, unspecified constipation type Gallbladder polyp COLON BIOPSY 03/09/2025 1:12 PM CDT Gastroesophageal reflux disease, unspecified whether esophagitis present Abdominal pain Change in bowel habits Blood in stool Bloating Constipation, unspecified constipation type Gallbladder polyp ESOPHAGOGASTRODUODENOSCOPY BIOPSY 03/09/2025 1:12 PM CDT Gastroesophageal reflux disease, unspecified whether esophagitis present Abdominal pain Change in bowel habits Blood in stool Bloating Constipation, unspecified constipation type Gallbladder polyp EGD 03/09/2025 1:11 PM CDT COLONOSCOPY 03/09/2025 1:11 PM CDT POC BLOOD GAS AND CHEMISTRIE S, VENOUS Routine 03/09/2025 1:00 PM CDT POCT HCG, URINE Routine 03/09/2025 12:35 PM CDT ECG 12-LEAD Routine 02/25/2025 4:02 PM CDT Chest pain, unspecified type from Last 3 Months Results * Thyroid Function [place] (04/16/2025 11:23 AM CDT) TSH 2.71 mIU/L [facility] Comment: Reference Range > or = 20 Years 0.40-4.50 Ranges First trimester 0.26-2.66 Second trimester 0.55-2.73 Third trimester 0.43-2.91 04/16/2025 11:2 3 AM CDT 04/16/2025 11:25 AM CDT [facility] - 04/17/2025 6:45 AM CDT FASTING:YES FASTING: YES us Nicolette Duncan MD LAB BLOOD ORDERABLE S Final Result [facility] [address] [place] [address] * CBC with auto differential (04/16/2025 11:23 AM CDT) WBC 4.7 3.8 - 10.8 Thousand/u L [facility] RBC, POC 4.23 3.80 - 5.10 Million/uL [facility] Hgb 12.7 11.7 - 15.5 g/dL [facility] Hct 38.7 35.0 - 45.0 % [facility] MCV 91.5 80.0 - 100.0 fL [facility] MCH 30.0 27.0 - 33.0 pg [facility] MCHC 32.8 32.0 - 36.0 g/dL [facility] Comment: For adults, a slight decrease in the calculated MCHC value (in the range of 30 to 32 g/dL) is most likely not clinically significant; however, it should be interpreted with caution in correlation with other red cell parameters and the patient's clinical condition. Rdw 12.0 11.0 - 15.0 % [facility] Platelets 255 140 - 400 Thousand/u L [facility] MPV 12.0 7.5 - 12.5 fL [facility] Neutrophils, abs 2,341 1,500 - 7,800 cells/uL [facility] Lymphocytes, abs 1,814 850 - 3,900 cells/uL [facility] Monocyte abs 418 200 - 950 cells/uL [facility] Eosinophils, abs 99 15 - 500 cells/uL [facility] Basophils, abs 28 0 - 200 cells/uL [facility] Neutrophils 49.8 % [facility] Lymphocyte pct 38.6 % [facility] Monocytes 8.9 % [facility] Eosinophils 2.1 % [facility] Basophils 0.6 % [facility] 04/16/2025 11:2 3 AM CDT 04/16/2025 11:25 AM CDT Narrative [facility] - 04/17/2025 6:45 AM CDT FASTING:YES FASTING: YES us Nicolette Duncan MD LAB BLOOD ORDERABLE S Final Result [facility] [address] [address] [address] [phone] * Hepatitis C antibody (04/16/2025 11:23 AM CDT) Hep C Ab NON-REACTI VE NON-REACT MONICA [facility] Comment: HCV antibody was non-reactive. There is no laboratory evidence of HCV infection. In most cases, no further action is required. However, if recent HCV exposure is suspected, a test for HCV RNA (test code 11628) is suggested. For additional information please refer to http://education.Impakt Protective/faq/KSS82s9 (This link is being provided for informational/ educational purposes only.) 04/16/2025 11:2 3 AM CDT 04/16/2025 11:25 AM CDT Narrative [facility] - 04/17/2025 6:45 AM CDT FASTING:YES FASTING: YES Nicolette Duncan MD LAB MICROBIOLOGY - GENERAL ORDERABLES Final Result Performing Organization Address City/[facility]/ZIP Co de Phone Number [facility] [address] [place] [address] * Prolactin (04/16/2025 11:23 AM CDT) Pathologist [facility] Prolactin 6.5 ng/mL [facility] Comment: Reference Range Females Non- 3.0-30.0 10.0-209.0 Postmenopausal 2.0-20.0 04/16/2025 11:2 3 AM CDT 04/16/2025 11:25 AM CDT Narrative [facility] - 04/17/2025 6:45 AM CDT FASTING:YES FASTING: YES us Nicolette Duncan MD LAB BLOOD ORDERABLE S Final Result Performing Organization Address City/[facility]/ZIP Co de Phone Number [facility] [address] [place] [address] * (ABNORMAL) DHEA-sulfate (04/16/2025 11:23 AM CDT) Pathologist [facility] DHEA-S 355(H) 14 - 349 mcg/dL [facility] 04/16/2025 11:2 3 AM CDT 04/16/2025 11:25 AM CDT Narrative [facility] - 04/17/2025 6:45 AM CDT FASTING:YES FASTING: YES Nicolette Duncan MD LAB BLOOD ORDERABLE S Final Result Performing Organization Address City/[facility]/ZIP Co de Phone Number [facility] [address] [address] [place] [phone] * Lipid panel (04/16/2025 11:23 AM CDT) Pathologist [facility] Cholesterol 166 <200 mg/dL [facility] HDL 52 > OR = 50 mg/dL [facility] Triglycerides 64 <150 mg/dL [facility] LDL 99 mg/dL (calc) [facility] Comment: Reference range: <100 Desirable range <100 mg/dL for primary prevention; <70 mg/dL for patients with CHD or diabetic patients with > or = 2 CHD risk factors. LDL-C is now calculated using the Yosef-Moffett calculation, which is a validated novel method providing better accuracy than the Friedewald equation in the estimation of LDL-C. Yosef SS et al. GURPREET. 2013;310(19): 7098-9474 (http://education.Newgistics/faq/HMH678) Chol/HDL ratio 3.2 <5.0 (calc) [facility] Non-HDL, (LDL+VLDL) 114 <130 mg/dL (calc) [facility] Comment: For patients with diabetes plus 1 major ASCVD risk factor, treating to a non-HDL-C goal of <100 mg/dL (LDL-C of <70 mg/dL) is considered a therapeutic option. 04/16/2025 11:2 3 AM CDT 04/16/2025 11:25 AM CDT Narrative [facility] - 04/17/2025 6:45 AM CDT FASTING:YES FASTING: YES Nicolette Duncan MD LAB BLOOD ORDERABLE S Final Result [facility] [address] [address] [place] [phone] * Comprehensive metabolic panel (04/16/2025 11:23 AM CDT) Glucose 95 65 - 99 mg/dL [facility] Comment: Fasting reference interval BUN 11 7 - 25 mg/dL [facility] Creatinine 0.58 0.50 - 0.96 mg/dL [facility] eGFR 129 > OR = 60 mL/min/1.7 3m2 [facility] BUN/creat ratio SEE NOTE: 6 - 22 (calc) [facility] [facility] Comment: Not Reported: BUN and Creatinine are within reference range. Sodium 140 135 - 146 mmol/L [facility] Potassium, pl 4.2 3.5 - 5.3 mmol/L [facility] Chloride 105 98 - 110 mmol/L [facility] CO2 28 20 - 32 mmol/L [facility] Calcium 9.1 8.6 - 10.2 mg/dL [facility] Protein, sr 6.8 6.1 - 8.1 g/dL [facility] Albumin 4.1 3.6 - 5.1 g/dL [facility] GLOBULIN 2.7 1.9 - 3.7 g/dL (calc) [facility] Alb/glob ratio 1.5 1.0 - 2.5 (calc) [facility] Bilirubin, total 0.5 0.2 - 1.2 mg/dL [facility] Alk phos 103 31 - 125 U/L [facility] AST 16 10 - 30 U/L [facility] ALT (SGPT) 16 6 - 29 U/L [facility] 04/16/2025 11:2 3 AM CDT 04/16/2025 11:25 AM CDT Narrative [facility] - 04/17/2025 6:45 AM CDT FASTING:YES FASTING: YES Nicolette Duncan MD LAB BLOOD ORDERABLE S Final Result [facility] [place] [address] [address] [id number] * RUQ Ultrasound (03/23/2025 7:00 AM CDT) Anatomical Region Laterality Modality Abdomen N/A Ultrasound 03/25/2025 10:0 1 AM CDT Narrative 03/25/2025 10:08 AM CDT EXAM DESCRIPTION: US RUQ REASON FOR STUDY: Gallbladder polyp of unspecified size and duration in a reportedly asymptomatic patient. No provided past medical, to include cancer, history. No provided past surgical history. Per imaging record, 5 mm gallbladder polyp demonstrated on March 2021 sonographic evaluation with stability in size on subsequent April 2022 sonographic evaluation. TECHNIQUE: Sonographic evaluation of the right upper quadrant of the abdomen was performed utilizing grayscale and color and spectral Doppler imaging techniques. Images saved to PACS. COMPARISON: Ultrasound right upper quadrant abdomen 04/30/2022 and 04/25/2021. FINDINGS: PANCREAS: Visualized portions of the pancreas are within normal limits. Substantial portions of the pancreatic body and tail are obscured due to bowel gas. LIVER: Upper normal size, approximately 15 cm craniocaudal, with hepatic echotexture and echogenicity within normal limits. No sonographic evidence of discrete hepatic mass of the visualized portions of the liver. Patent main portal vein with directionally correct flow. GALLBLADDER: Shadowing cholelithiasis in the dependent gallbladder neck at/about the site of previously demonstrated gallbladder polyp precluding sonographic visualization thereof. No gallbladder wall thickening. No pericholecystic fluid. No positive sonographic Coronel's sign reported. BILIARY: Poorly evaluated pursuant to bowel gas, though common bile duct 4-5 mm. RIGHT KIDNEY: Sonographic evaluation of the visualized portions of the right kidney unremarkable. OTHER: No other significant findings. IMPRESSION: Cholelithiasis without sonographic evidence of acute cholecystitis: Shadowing cholelithiasis in the dependent gallbladder neck at/about the site of previously demonstrated gallbladder polyp precluding sonographic visualization thereof. THIS IS AN ELECTRONICALLY VERIFIED FINAL REPORT 03/25/2025 10:08 AM - Electronically signed by Lobito LAMAS Report ID: [id number] Reading Location: [id number] Procedure Note Lobito Cummings MD - 03/25/2025 EXAM DESCRIPTION: US RUQ REASON FOR STUDY: Gallbladder polyp of unspecified size and duration in a reportedly asymptomatic patient. No provided past medical, to includecancer, history. No provided past surgical history. Per imaging record, 5 mm gallbladder polyp demonstrated on March 2021 sonographic evaluation with stability in size on subsequent April 2022 sonographic evaluation. TECHNIQUE: Sonographic evaluation of the right upper quadrant of theabdomen was performed utilizing grayscale and color and spectral Doppler imaging techniques. Images saved to PACS. COMPARISON: Ultrasound right upper quadrant abdomen 04/30/2022 and 04/25/2021. FINDINGS: PANCREAS: Visualized portions of the pancreas are withinnormal limits. Substantial portions of the pancreatic body and tail are obscureddue to bowel gas. LIVER: Upper normal size, approximately 15 cm craniocaudal, with hepatic echotexture and echogenicity within normal limits. No sonographicevidence of discrete hepatic mass of the visualized portions of the liver. Patentmain portal vein with directionally correct flow. GALLBLADDER: Shadowing cholelithiasis in the dependent gallbladder neck at/about the site of previously demonstrated gallbladder polyp precluding sonographic visualization thereof. No gallbladder wall thickening. No pericholecystic fluid. No positive sonographic Coronel's sign reported. BILIARY: Poorly evaluated pursuant to bowel gas, though common bile duct4-5 mm. RIGHT KIDNEY: Sonographic evaluation of the visualized portions of theright kidney unremarkable. OTHER: No other significant findings. IMPRESSION: Cholelithiasis without sonographic evidence of acute cholecystitis: Shadowing cholelithiasis in the dependent gallbladder neck at/about the site of previously demonstrated gallbladder polyp precluding sonographic visualization thereof. THIS IS AN ELECTRONICALLY VERIFIED FINAL REPORT 03/25/2025 10:08 AM - Electronically signed by Lobito LAMAS: CYDNEY Report ID: [id number] Reading Location: [id number] [facility] PROCEDURES Mariama means Result * Surgical pathology (03/09/2025 1:21 PM CDT) Tissue (Duodenum, Biopsy) 03/09/2025 1:21 PM CDT Comment:Cold bx Tissue specimen (specimen) (Gastric/Stomach biopsy) 03/09/2025 1:21 PM CDT Comment:Cold bx Tissue specimen (specimen) (Esophageal biopsy) 03/09/2025 1:21 PM CDT Comment:Cold bx Tissue specimen (specimen) (Colon, Biopsy) 03/09/2025 1:30 PM CDT Comment:Cold bx Narrative PATHOLOGY [facility] - 03/11/2025 1:13 PM CDT [facility] Department of Pathology [address] [place] [address] Note to Patients: This report may contain a detailed description of human tissue sent by a health care provider to the laboratory for pathologic evaluation. The content of this report is essential for diagnosis and may provide important critical findings. This information may be unfamiliar to patients to review without a medical professional present. It is advised that the patient review this report in the presence of a health care provider who can answer questions and explain the details. Final Report Patient Name: JENNI FIGUEROA : 2000 (Age: 25) Gender: F Address: [address] [place] [address] Hospital #: [id number] Service: Gastro Location: Patient Type: [facility] OUTPATIENT Taken: 03/09/2025 Received: 03/10/2025 Accessioned: 03/10/2025 Reported: 03/11/2025 Physician(s): Haroldo Reyna MD Diagnosis: A. Small bowel, duodenum, biopsy - Normal duodenal mucosa B. Stomach, body and antrum, biopsy - Normal antral and oxyntic mucosa - No H. pylori organisms are identified by H&E examination C. Esophagus, distal, biopsy - Esophageal squamous and gastric cardiac type mucosa with chronic inflammation - Negative for goblet cells D. Large bowel, random colon, biopsy - Normal colonic mucosa Linda Randall MD Report Electronically Reviewed and Signed Out By Linda Randall MD 03/11/2025 13:13:26 Specimen(s) Received: A: Duodenal biopsy rule out Celiac disease B: Gastric body and antrum rule out H.Pylori C: Distal esophageal biopsy rule out Woodruff's D: Random colon rule out microscopic colitis Microscopic Description: Unless gross-only is specified, the final diagnosis for each specimen is based on a microscopic examination of each tissue sample. Clinical History: The patient is a 25-year-old woman presenting with gastroesophageal reflux disease, abdominal pain, change in bowel habits, blood in stool, bloating, constipation, gallbladder polyp. Operative procedure: Esophagogastroduodenoscopy biopsy, colon biopsy. Gross Description Received in four formalin jars labeled with the patient's identifiers. A. Labeled duodenal biopsy rule out celiac disease are three fragments of soft cline-pink tissue (0.2-0.3 cm in greatest dimension). Placed between sponges. Labeled A1. Jar 0. B. Labeled gastric body and antrum rule out H pylori are two fragments of soft cline-pink tissue (0.4-0.6 cm in greatest dimension). Placed between sponges. Labeled B1. Jar 0. C. Labeled distal esophageal biopsy rule out Woodruff's are two fragments of soft cline-pink tissue (each measuring 0.3 cm in greatest dimension). Placed between sponges. Labeled C1. Jar 0. D. Labeled random colon rule out microscopic colitis are four fragments of cline- pink tissue (0.2-0.4 cm in greatest dimension). Placed between sponges. Labeled D1. Jar 0. [facility]/03/10/2025 11:10 Monica Severino, MS, PA (A Microscopic slide review and interpretation for this case was performed at [facility], Department of Surgical Pathology, [address] [facility] [address], [id number], [place] [address] CLIA # [id number] Arthur Murphy MD LAB PATHOLOGY ORDERABLES Final R esult PATHOLOGY [facility] * EGD (03/09/2025 1:11 PM CDT) Anatomical Region Laterality Modality Other Narrative Procedure Note Arthur Murphy MD - 03/09/2025 1:11 PM CDT [facility] GI ENDOSCOPY Patient Name: Jenni Figueroa Procedure Date: 03/09/2025 1:11 PM Date of : 2000 Admit Type: Outpatient Age: 25 Gender: Female Attending MD: Arthur Murphy M.D., Room: [facility] ENDOSCOPY ROOM 03 Note Status: Finalized Procedure: Upper GI endoscopy Indications: Abdominal pain, Dyspepsia, Gastro-esophageal reflux disease Referring MD: Providers: Arthur Murphy M.D. Medicines: Monitored Anesthesia Care Complications: No immediate complications. Procedure: Pre-Anesthesia Assessment: - Prior to the procedure, a History and Physicalwas performed, and patient medications and allergieswere reviewed. The risks and benefits of the procedureand the sedation options and risks were discussed withthe patient. All questions were answered and informed consent was obtained. Patient identification and proposed procedure were verified. After reviewingthe risks and benefits, the patient was deemed in satisfactory condition to undergo the procedure.The anesthesia plan was to use monitored anesthesiacare (MAC). Immediately prior to administration of medications, the patient was re-assessed foradequacy to receive sedatives. The heart rate, respiratory rate, oxygen saturations, blood pressure, adequacyof pulmonary ventilation, and response to care were monitored throughout the procedure. The physical status of the patient was re-assessed after the procedure. The benefits, risks, and alternatives to theprocedure and sedation were discussed and informed consentwas obtained. The scope was passed under direct vision. The GIF-H180 upper endoscope was introduced through the mouth, and advanced to the second part of duodenum. The upper GI endoscopy was accomplished without difficulty. The patient tolerated the procedure well. Findings: The Z-line was irregular and was found in the distal esophagus. Thiswas biopsied with a cold forceps for evaluation to rule out Woodruff's Esophagus. Mild inflammation characterized by erythema was found in the stomach. Biopsies were taken with a cold forceps for Helicobacter pyloritesting. The examined duodenum was normal. Biopsies for histology were takenwith a cold forceps for evaluation of celiac disease. The cardia and gastric fundus were normal on retroflexion. The exam was otherwise without abnormality. Impression: - Z-line irregular, in the distal esophagus.Biopsied. - Gastritis, characterized by erythema. Biopsied. - Normal examined duodenum. Biopsied. - The examination was otherwise normal. Recommendation: - Patient has a contact number available for emergencies. The signs and symptoms of potential delayed complications were discussed with thepatient. Return to normal activities tomorrow. Written discharge instructions were provided to thepatient. - GERD RECOMMENDATIONS given include: anti-reflux maneuvers, avoid acidic foods like oranges and tomatoes, avoidance of spicy foods, avoid eating3-4 hours before bed, elevation of the head of the bed, and weight loss. - Continue omeprazole 20 mg p.o. daily andfamotidine p.r.n.. - Await pathology results. - Patient was advised to call GI office and make an appointment if symptoms persist. Arthur Murphy M.D. Arthur Murphy M.D. 03/09/2025 1:43:50 PM . Number of Addenda: 0 Note Initiated On: 03/09/2025 1:11 PM Recognized by the [employer] for promoting quality in endoscopy us Arthur Murphy MD ENDOSCOPY PROCEDURES Final Resul t * Colonoscopy (03/09/2025 1:11 PM CDT) Anatomical Region Laterality Modality Other Narrative Procedure Note Arthur Murphy MD - 03/09/2025 1:11 PM CDT [facility] GI ENDOSCOPY Patient Name: Jenni Figueroa Procedure Date: 03/09/2025 1:11 PM Date of : 2000 Admit Type: Outpatient Age: 25 Gender: Female Attending MD: Arthur Murphy M.D., Room: [facility] ENDOSCOPY ROOM 03 Note Status: Finalized Procedure: Colonoscopy Indications: Rectal bleeding, Alternating constipation and diarrhea, Change in bowel habits Referring MD: Providers: Arthur Murphy M.D. Medicines: Monitored Anesthesia Care Complications: No immediate complications. Estimated Blood Loss: Estimated blood loss: none. Procedure: Pre-Anesthesia Assessment: - Prior to the procedure, a History and Physicalwas performed, and patient medications and allergieswere reviewed. The risks and benefits of the procedureand the sedation options and risks were discussed withthe patient. All questions were answered and informed consent was obtained. Patient identification and proposed procedure were verified. After reviewingthe risks and benefits, the patient was deemed in satisfactory condition to undergo the procedure.The anesthesia plan was to use monitored anesthesiacare (MAC). Immediately prior to administration of medications, the patient was re-assessed foradequacy to receive sedatives. The heart rate, respiratory rate, oxygen saturations, blood pressure, adequacyof pulmonary ventilation, and response to care were monitored throughout the procedure. The physical status of the patient was re-assessed after the procedure. The benefits, risks and alternatives of theprocedure and sedation were discussed and informed consentwas obtained. All questions were answered. Please referto the signed informed consent document in the medical record. The scope was passed under direct vision.The Colonoscope was introduced through the anus and advanced to the terminal ileum. The colonoscopy was performed without difficulty. The patient tolerated the procedure well. The quality of the bowel preparation was good. Scope withdrawal time was 11 minutes. Prep was administered in a split dose. Findings: The perianal and digital rectal examinations were normal. The terminal ileum appeared normal. Non-bleeding internal hemorrhoids were found during retroflexion. The hemorrhoids were small. Biopsies for histology were taken with a cold forceps from the right colon and left colon for evaluation of microscopic colitis. Impression: - The examined portion of the ileum was normal. - Non-bleeding internal hemorrhoids. - Biopsies were taken with a cold forceps from the right colon and left colon for evaluation of microscopic colitis. Recommendation: - Patient has a contact number available for emergencies. The signs and symptoms of potential delayed complications were discussed with thepatient. Return to normal activities tomorrow. Written discharge instructions were provided to thepatient. - High fiber diet. - Continue present medications. - Await pathology results. - Repeat colonoscopy at age 45 for screeningpurposes. - Patient was advised to call GI office and make an appointment if symptoms persist. Arthur Murphy M.D. Arthur Murphy M.D. 03/09/2025 1:45:44 PM . Number of Addenda: 0 Note Initiated On: 03/09/2025 1:11 PM Recognized by the [employer] for promoting quality in endoscopy Arthur Murphy MD ENDOSCOPY PROCEDURES Final Resul t * (ABNORMAL) POC Blood Gas and Chemistries, Venous - (03/09/2025 1:00 PM CDT) pH,lolita POC 7.40 7.32 - 7.43 pCO2, lolita POC 36(L) 40 - 50 mmHg [facility] pO2,lolita POC 34 mmHg [facility] Comment: Interpretive Data No reference range established. Current interpretive data was last revised 2020. HCO3, lolita (Calc) POC 23 20 - 30 mmol/L [facility] Base excess, lolita POC -2 mmol/L [facility] Comment: Interpretive Data No reference range established. Current interpretive data was last revised 2020. Hemoglobin, lolita POC 12.6 11.9 - 15.5 g/dL [facility] Hematocrit, lolita POC 37.0 35.6 - 45.5 % [facility] Sodium, lolita POC 141 135 - 145 mmol/L [facility] Potassium, lolita POC 3.7 3.3 - 4.9 mmol/L [facility] Comment: Interpretive Data This method is not able to assess for hemolysis, which may falsely increase potassium concentrations. If further testing is needed to evaluate this result, consider in-laboratory plasma potassium. Current Interpretive Data was last revised on 2022. Glucose, lolita POC 98 70 - 199 mg/dL [facility] Ionized Calcium, lolita POC 5.00 4.50 - 5.10 mg/dL [facility] Blood 03/09/2025 1:00 PM CDT 03/09/2025 1:00 PM CDT Arthur Murphy MD LAB POCT ORDERABLES - DEVICE Fin al Result [facility] [address] [facility] Department [place] [address] * POCT hCG, urine (03/09/2025 12:35 PM CDT) HCG, ur, POC Negative Negative Lot Number [id number] QC Backgroud Clear Acceptable QC Control Line Acceptable Urine 03/09/2025 12:3 5 PM CDT Henry Sands MD POINT OF CARE TEST ORDERAB LES Final Result * ECG 12 lead (02/25/2025 4:02 PM CDT) Dawood Torres MD ECG ORDERABLES Final Result from Last 3 Months Insurance [facility] H[facility] Care Teams News Assistant Relationship Specialty Start Date End Date Nicolette Duncan MD [address] [place] [address] PCP - General Family Medicine 02/05/21
--- OUTSIDE RECORDS SUMMARY | 2025-04-26 17:59 | XMS_ITS | Patient Health Record ---
Author Organization [facility] Address [address] [id number] Care Team Providers Care Laser Beam Color Scanner Operator Name Role Phone Horace Lala DO Unavailable [phone] Unavailable [phone] Allergies No Known Allergies Reason For Referral No Information Plan Of Treatment No Information Insurance Providers Payer Name Payer Address Payer Phone Subscriber Number Group Number Insured Name Patient Relationship to Insured Coverage Start Date Coverage End Date [employer] [address] [place] [address] [id number] Jenni Cash Self - patient is the insured Medical (General) History Medical History History ICD Code gallbladder issues Liver disease Anemia: Gallbladder problems,Liver disea se or Abnormal liver test
--- OUTSIDE RECORDS SUMMARY | 2025-04-26 17:59 | XMS_ITS | Encounter Summary ---
Author Organization [facility] Healthcare Address [address] [place] [address] Care Team Providers Care Line Assembler Aircraft Name Role Phone Nicolette Duncan MD Primary Care Provi blair Encounter Details Date Type Department Care Team (Latest Contact Info) Description 03/12/2025 Results Follow-Up [facility] Gastroenterology at [address] [place] [address] Arthur Murphy MD [address] [place] [address] Surgical pathology Social History Tobacco Use Types Packs/Day Years Used Date Smoking Tobacco: Never Alcohol Use Standard Drinks/Week Comments Yes 2 (1 standard drink = 0.6 oz pur e alcohol) PHQ-2 Answer Date Recorded PHQ-2 Total Score (If total score is 3 or more points, staff should administer the PHQ-9) 0 02/25/2025 PHQ-9 Answer Date Recorded PHQ-9 Total Score 3 01/24/2025 AUDIT-C Answer Date Recorded Q1: How often do you have a drink containing alc ohol? 2-3 times a week 03/09/2025 Q2: How many drinks containi ng alcohol do you have on a typical day when you are drinking? 1 or 2 03/09/2025 Q3: How often do you have si x or more drinks on one occasion? Never 03/09/2025 Personal Safety Answer Date Recorded Have you ever been in or are you currently in a harmful physical or emotional relationship or is someone making you feel afraid or unsafe? 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
--- OUTSIDE RECORDS SUMMARY | 2025-04-26 17:59 | XMS_ITS | Encounter Summary ---
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
--- OUTSIDE RECORDS SUMMARY | 2025-04-26 17:59 | XMS_ITS | Patient Health Record ---
Author Organization [facility] As [employer] Address [address] [place] [address] Care Team Providers Care Blueprint Developer Name Role Phone Navin Mei Unavailable [phone] Reason For Referral No Information Medications Medication SIG (Take, Route, Frequency, Duration) Notes Start Date End Date Status Venlafaxine HCl ER 150 MG Capsule Extended Release 24 Hour Oral 08/15/2020 Active hydrOXYzine HCl 25 MG Tablet Oral 08/15/2020 Active Venlafaxine HCl ER 75 MG Capsule Extended Release 24 Hour Oral 08/15/2020 Active Immunizations Vaccine Route Administration Date Status Comme nts DTaP Unknown 11/30/2004 Administered IPV Unknown 11/30/2004 Administered MMR Unknown 11/30/2004 Administered Social History Sex Assigned At : Social History Observation Description Sex Assigned At Female Social History Additional Details Category Social Info Options Details Migrated Social History Migrated Social History Alcohol Intake: None 01/04/2020,Tobacco Years: Never smoker 01/04/2020 Plan Of Treatment Next Appt Details Provider Name:Navin lucas, 06/06/2025 10:30:00 AM, [address], [address], [place], [address], Insurance Providers Payer Name Payer Address Payer Phone Subscriber Number Group Number Insured Name Patient Relationship to Insured Coverage Start Date Coverage End Date Aet[employer] [address] [place] [phone] [id number] PARISH FIGUEROA Self - patient is the insured
--- OUTSIDE RECORDS SUMMARY | 2025-04-26 17:59 | XMS_ITS | Clinical Summary ---
Author Organization [facility] Care Team Providers Care Highway Maintenance Supervisor Name Role Phone Unavailable Primary Care Provider Unavailabl e Social History Tobacco Use Types Packs/Day Years Used Date Smoking Tobacco: Never Assessed Comments Unknown Sex and Gender Information Value Date Recorded Sex Assigned at Not on file Legal Sex Female 10:52 AM TABLE FILLER Gender Identity Not on file Sexual Orientation Not on file Plan of Treatment Health Maintenance Due Date Last Done Comments Hepatitis C Virus (HCV) Screening 2000 TdaP Immunization 2000 Human Papillomavirus (HPV) Immunization (1 - 3-dose series) 01/09/2015 Hepatitis B Immunization (1 of 3 - 19+ 3-dose series) 01/09/2019 Influenza Immunization (#1) 2025 SARS-COV-2 Immunization ( - 2024- season) 2025 11/11/2020, 10/13/2020 Respiratory Syncytial Virus (RSV) Immunization [...]
--- OUTSIDE RECORDS SUMMARY | 2025-04-26 18:00 | XMS_ITS | Clinical Summary ---
Author Organization [facility] Address [address] [place] [address] Care Team Providers Care Copy Machine Operator Name Role Phone Unavailable Primary Care Provider Unavailabl e Source Comments [facility],non-owned Affiliates and Associated Physician Practices is amultiple site organization consisting of ambulatory clinics and hospital sitesin [place], [place], [place] and [place]. This disclosure is being madepursuant to the Care Everywhere program and may not contain all information available regarding this patient. Last updated 18.[facility] Social History Tobacco Use Types Packs/Day Years [...] 19+ 3-dose series) 01/09/2019 PAP SMEAR 01/09/2021 DEPRESSION SCREENING 06/30/2024 COVID-19 VACCINE (1 - 2023-2 5 season) 2025 INFLUENZA VACCINE (#1) 2025 ZOSTER VACCINE (1 [...]
--- OUTSIDE RECORDS SUMMARY | 2025-04-26 18:00 | XMS_ITS | Encounter Summary ---
Author Organization [facility] Healthcare Address [address] [place] [address] Care Team Providers Care Stock Selector Name Role Phone Nicolette Duncan MD Primary Care Provi blair Reason for Visit * Reason Onset Date Comments Leg Pain 04/26/2025 Leg Swelling 04/26/2025 Encounter Details Date Type Department Care Team (Late st Contact Info) Description 04/26/2025 Nurse Triage [facility] Family Medicine [address] [phone] Nicolette Duncan MD [address] [address] Social History Tobacco Use Types Packs/Day Years [...] on file 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 Reports when looking in the mirror notices swelling to left martinez extending into thigh. Reports that pain starts in calf and radiates up back of leg into thigh. Reports that pain is worse with standing; causes leg to tingle. Reports recently going out of town; had a two hour flight and did a lot of walking on the trip. No recent injuries. Denies history of blood clots. Denies new chest pain, difficulty breathing, inability to walk, redness or fever. Patient reports indigestion that is chronic and unchanged. Patient scheduled self at [facility] this evening for evaluation. Provider contacted via secure chat for ED disposition consult. Recommendation from provider:Other: send to [facility] for ultrasound. Caller is agreeable. CC appointment cancelled with patient's permission; advised they are unable to do ultrasound there. Advised to call back with questions,concerns, worsening or persistent symptoms, unable to get ultrasound. Caller stated understanding. Disposition Go to ED/C Now (or to Office With PCP Approval) Reason for Disposition Thigh or calf pain in only one leg and present > 1 hour No Initial Assessment on file. No Additional Information on file. Protocols Used Leg [id number] * Telephone Encounter - Sadaf Mendoza RN - 04/26/2025 2:41 PM CDT Regarding: left leg swollen, discomfort ----- Message from Sammi Bryant sent at 04/26/2025 2:40 PM CDT ----- Symptom Based Call Chief Complaint(s): left leg swollen, discomfort Duration: 3 days What type of symptom(s) is the patient experiencing? Red Flag. Is the patient concerned they are experiencing a medical emergency requiring an ambulance? No Additional Comments: When stand pt's calf feels weird. Swelling below knee, discomfort in back of thigh when sitting. Does message need to be routed? Yes-Action Needed documented in this encounter Plan of Treatment Not on file documented as of this encounter Visit Diagnoses Not on filedocumented in this encounter Care Teams Stock Selector Relationship Specialty Start Date End Date Nicolette Duncan MD [facility] [address] [place] [id number] PCP - General Family Medicine 02/05/21 documented as of this encounter
--- OUTSIDE RECORDS SUMMARY | 2025-04-26 18:00 | XMS_ITS | Encounter Summary ---
Author Organization [facility] Address [address] [place] [address] Care Team Providers Care Cotton Sampler Name Role Phone Unavailable Primary Care Provider Unavailabl e Encounter Details Date Type Department Care Team (Late st Contact Info) Description 04/22/2023 Lab Requisition [facility] - DermPath Lab [address] [place] [address] Frandy Kelly MD [facility] DERMATOLOGY [address] [place] [phone] Neoplasm of uncertain behavior of skin [...] AM CDT) Case Report Dermatopathology Report Case: [id number] Authorizing Provider: Frandy Kelly MD Collected: 04/22/2023 03:33 AM Ordering Location: [facility] DermPath Lab Received: 04/23/2023 01:17 PM Pathologist: [...] characteristic determined by the Dermatopathology Laboratory at [facility], directed by Dr. Rico Lopez. These tests need not be, and therefore are not, approved by the [place] Food and Drug Administration. The tests are used for clinical purposes. Billing Codes Specimen Charges Stain Charges 69202 95298 1 1 3 3:32 PM CDT DERMATOPATHOLOGY LABORATORY Embedded Images 3:32 PM CDT DERMATOPATHOLOGY LABORATORY Pathology/Cytology TISSUE SPECIMEN FROM SKIN / Unknown 04/22/2023 3:33 AM CDT 04/23/2023 1:17 PM CDT Miscellaneous samples (specimen) TISSUE SPECIMEN FROM SKIN / Unknown 04/22/2023 3:33 AM CDT 04/23/2023 1:17 PM CDT us Frandy Kelly MD LAB - PATHOLOGY/CYTOLOGY JOSSE SHORT Final Result DERMATOPATHOLOGY LABORATORY [facility] - Department of Dermatology [facility] Specialized Medicine [address] [place] [address], [address] [phone] documented in this encounter Visit Diagnoses Diagnosis Neoplasm of uncertain behavior of skin documented in this encounter
--- OUTSIDE RECORDS SUMMARY | 2025-04-26 18:00 | XMS_ITS | Encounter Summary ---
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
--- NOTE | 2025-04-26 18:35 | ED_ITS ---
HPI - Recheck/Abnormal Lab/Rx General Chief Complaint: Recheck/Abnormal Lab/Rx <Natacha Gallagher PA-C - Last Filed: 05/02/25 17:50> Stated Complaint: primary sent in for possible blood clot <Natacha Gallagher PA-C - Last Filed: 05/02/25 17:50> Time Seen by Provider: 04/26/25 18:35 <Natacha Gallagher PA-C - Last Filed: 05/02/25 17:50> Focused HPI: This is a 25 year old female that presents to the ER for left lower extremity pain. Ongoing over the last week. Started to notice some swelling the last couple of days. Sent in to r/o DVT. GENERAL: Well-appearing, well-nourished, and in no acute distress. HEAD: Normocephalic, atraumatic. CHEST: No respiratory distress. HEART: Regular rate NEURO: ?Alert and oriented x3. Patient screened in triage and initial orders placed.? ?Additional care and disposition to be based upon?diagnostic testing and treatment. <Natacha Gallagher PA-C - Last Filed: 05/02/25 17:50> Focused HPI: This is a 25 year old female that presents to the ER for left lower extremity pain. Ongoing over the last 3 days, started the day after she went dancing. Started to notice some swelling the last couple of days. Sent in to r/o DVT. GENERAL: Well-appearing, well-nourished, and in no acute distress. HEAD: Normocephalic, atraumatic. CHEST: No respiratory distress. HEART: Regular rate NEURO: ?Alert and oriented x3. Patient screened in triage and initial orders placed.? ?Additional care and disposition to be based upon?diagnostic testing and treatment. <Dimitri Tracey MD - Last Filed: 04/26/25 21:24> History of Present Illness HPI narrative: Agree with the HPI above <Dimitri Tracey MD - Last Filed: 04/26/25 21:24> Related Data Home Medications: Home Medications ?Medication ?Instructions ?Recorded ?Confirmed ?Last Taken ?Type minoxidil 2.5 mg tablet 2.5 mg PO DAILY 06/10/2406/22 Unknown History tirzepatide (weight loss) 12.5 mg subcut 12/07/2411/28 Unknown History mg/0.5 mL subcutaneous pen injector (Zepbound) <Natacha Gallagher PA-C - Last Filed: 05/02/25 17:50> Allergies/Adverse Reactions: Allergies Allergy/AdvReac Type Severity Reaction Status Date / Time No Known Allergies Allergy Verified 04/26/25 17:48 <Natacha Gallagher PA-C - Last Filed: 05/02/25 17:50> Review of Systems Review of Systems: As reviewed above in HPI <Dimitri Tracey MD - Last Filed: 04/26/25 21:24> PMFSH Past Medical History Medical History: Medical History Anxiety Hair loss <Natacha Gallagher PA-C - Last Filed: 05/02/25 17:50> Surgical History Surgical History: Surgical History No significant past surgical history <Natacha Gallagher PA-C - Last Filed: 05/02/25 17:50> Family History Family History: Family History Grandparent Breast cancer mat grandmother Other Asthma <Natacha Gallagher PA-C - Last Filed: 05/02/25 17:50> Social History Social History: Social History Smoking status: Never smoker Alcohol intake: current Substance use: never Substance use type: does not use Do You Feel Safe in your Home?: Yes Lack of Transportation: No Lack of Food: Never True Current Housing: I Have Housing Concerned About Future Housing: No Difficulty Paying Gas/Electric Bills: No Currently Unemployed: No Education: High School Diploma/GED Difficulty w/ Childcare or Family Care: No Living arrangements: with roommate(s) Occupation/Education: occupation Gender identity (if verbalized by the patient): Female Sexual Orientation (if Verbalized by the Patient): Lesbian, Bonilla, or Homosexual <Natacha Gallagher PA-C - Last Filed: 05/02/25 17:50> Exam Narrative: GENERAL: [Well-appearing, well-nourished, and in no acute distress.] HEAD: [Normocephalic, atraumatic.] EYES: [PERRLA and EOMI.] ENT: Nares clear, no rhinorrhea or epistaxis. Mucous membranes moist. NECK: Supple. CHEST: [Clear to auscultation. No respiratory distress.] HEART: [Regular rate and rhythm]. No murmur heard. [Normal peripheral pulses.] ABDOMEN: [Soft, nondistended], [nontender], [No rigidity or guarding] EXTREMITIES: Normal range of motion. No isolated extremity edema. Tenderness to palpation over the medial left lower extremity. No overlying skin deformity discoloration or bleeding. No bruising. Ankle plantar and dorsiflexion full strength, dorsiflexion elicits some pain in this region. Ambulatory without difficulty. SKIN: Warm, dry, no rash. NEURO: [No focal deficits]. Alert and oriented [x3.] PSYCH: [Normal mood and affect.] <Dmiitri Tracey MD - Last Filed: 04/26/25 21:24> Course Vital Signs Vital signs: Vital Signs Temperature 97.4 F L 04/26/25 17:45 Pulse Rate 101 H 04/26/25 17:45 Respiratory Rate 17 04/26/25 17:45 Blood Pressure 149/97 H 04/26/25 17:45 Pulse Oximetry 100 04/26/25 17:45 Oxygen Delivery Room Air 04/26/25 17:45 Temperature 97.8 F 04/26/25 20:03 Pulse Rate 85 04/26/25 20:03 Respiratory Rate 17 04/26/25 20:03 Blood Pressure 144/98 H 04/26/25 20:03 Pulse Oximetry 98 04/26/25 20:03 Oxygen Delivery Room Air 04/26/25 17:45 <Natacha Gallagher PA-C - Last Filed: 05/02/25 17:50> Vital Signs Temperature 97.4 F L 04/26/25 17:45 Pulse Rate 101 H 04/26/25 17:45 Respiratory Rate 17 04/26/25 17:45 Blood Pressure 149/97 H 04/26/25 17:45 Pulse Oximetry 100 04/26/25 17:45 Oxygen Delivery Room Air 04/26/25 17:45 Temperature 97.8 F 04/26/25 20:03 Pulse Rate 85 04/26/25 20:03 Respiratory Rate 17 04/26/25 20:03 Blood Pressure 144/98 H 04/26/25 20:03 Pulse Oximetry 98 04/26/25 20:03 Oxygen Delivery Room Air 04/26/25 17:45 <Dimitri Tracey MD - Last Filed: 04/26/25 21:24> MDM - Recheck/Abnormal Lab/Rx MDM Narrative Medical decision making narrative: 25 year old female that presents to the ER for left lower extremity pain. Ongoing over the last 3 days, started the day after she went dancing. Started to notice some swelling the last couple of days. Sent in to r/o DVT. Normal range of motion. No isolated extremity edema. Tenderness to palpation over the medial left lower extremity. No overlying skin deformity discoloration or bleeding. No bruising. Ankle plantar and dorsiflexion full strength, dorsiflexion elicits some pain in this region. Ambulatory without difficulty. Normal vital signs and normal neurovascular assessment. Strong pulses and good range of motion. Likely musculoskeletal strain from dancing versus less likely hematoma or DVT. Ultrasound confirms no DVT. Patient safe for discharge with PCP follow-up in instructed on ibuprofen, Tylenol, rest and ice as well as compression. <Dimitri Tracey MD - Last Filed: 04/26/25 21:24> Medical Records Attestation: I reviewed the patient's medical records. <Dimitri Tracey MD - Last Filed: 04/26/25 21:24> Imaging Data Attestation: I personally reviewed and interpreted this imaging study as follows: <Dimitri Tracey MD - Last Filed: 04/26/25 21:24> My impression: Impressions Venous Doppler Study 04/26/25 18:52 IMPRESSION: 1. No left leg DVT. <Dimitri Tracey MD - Last Filed: 04/26/25 21:24> Discharge Plan Discharge Clinical Impression: Left leg pain <Natacha Gallagher PA-C - Last Filed: 05/02/25 17:50> Patient Disposition: Home <Natacha Gallagher PA-C - Last Filed: 05/02/25 17:50> Condition: Stable <Natacha Gallagher PA-C - Last Filed: 05/02/25 17:50> Instructions: Antibiotic Form <GAURAV Abarca Last Filed: 05/02/25 17:50> Additional Instructions: Ultrasound shows no DVT in the left leg. Symptoms consistent with musculoskeletal strain. Take Tylenol and ibuprofen every 6-8 hours for pain and swelling control. Apply ice up to 20 minutes at a time to the area that is injury or hurting. Wear compression socks and elevate the extremity at night. Return with any emergent concerns. Follow-up with regular doctor. <Natacha Gallagher PA-C - Last Filed: 05/02/25 17:50> Patient Language: Burundian <GAURAV Abarca Last Filed: 05/02/25 17:50> Prescriptions: No Action minoxidil 2.5 mg tablet 2.5 mg PO DAILY Zepbound 12.5 mg/0.5 mL pen injector subcut dicyclomine 20 mg tablet 20 mg PO TID PRN (Reason: abdominal pain) Qty: 14 0RF alum-mag hydroxide-simeth [Maalox Advanced] 200-200-20 mg/5 mL suspension 15 ml PO QID PRN (Reason: dyspepsia) Qty: 3000 0RF Rx Instructions: administer between meals and at bedtime famotidine [Pepcid] 20 mg tablet 20 mg PO BID Qty: 20 0RF <GAURAV Abarca Last Filed: 05/02/25 17:50> Follow-up/Referrals: Perla,MD Nicolette [Primary Care Provider, Unknown] <Natacha Gallagher PA-C - Last Filed: 05/02/25 17:50> Time of Disposition: 20:17 <Natacha Gallagher PA-C - Last Filed: 05/02/25 17:50> 20:17 <Dimitri Tracey MD - Last Filed: 04/26/25 21:24>
[2025-04-26 19:58] VITALS: BP 144/98; PULSE 87; RESP 17; TEMP 36.6
[2025-04-26 20:03] VITALS: BP 144/98; PULSE 85; RESP 17; TEMP 36.6; O2SAT 98
--- OUTSIDE RECORDS SUMMARY | 2025-04-26 20:18 | XMS_ITS | Clinical Summary ---
Author Organization [address] Address [address] [address] Care Team Providers Care Ultrasonic Tester Name Role Phone Nicolette Duncan MD Primary [...] the discretion of the patient. Also recommend rbfk-qta-etxfuim fiber supplement continuation. Due to association with [...] titrate up at her discretion. She continues cvmh-qke-jkjbjya fiber supplement daily. 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 2. 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 Assessment & Plan (08/14/2021 9:27 AM OSTRICH FARMER): Currently uncontrolled Will start daily metformin 500 [...] Department Care Team Description 5 Nurse Triage [facility] Family Medicine [address] [place] [phone] Nicolette Duncan MD 5 Results Follow-Up [address] [phone] Nicolette Duncan MD Hepatitis C antibody, DHEA-sulfate, Prolactin, Additional followed-up results: 4 5 Orders Only [address] [phone] Nicolette Duncan MD 5 1:00 PM CDT Office Visit [address] [phone] Nicolette Duncan MD Well adult exam (Primary [...] Orders Only [facility] Gastroenterology at [address] [place] [phone] Natacha Hernandez DNP Gallstones (Primary Dx) 5 Results Follow-Up [facility] Gastroenterology at [address] [place] [phone] Natacha Hernandez DNP RUQ Ultrasound 5 6:30 AM CDT - 5 11:59 PM CDT Hospital Encounter [facility] Ultrasound [address] [place] [address] Gallbladder polyp; Constipation, unspecified constipation type; Bloating; Blood in stool; Change in bowel habits; Abdominal pain; Gastroesophageal reflux disease, unspecified whether esophagitis present Discharge Disposition: Discharge to home or self care 5 Results Follow-Up [facility] Gastroenterology at [address] [place] [phone] Arthur Murphy MD Surgical pathology 5 1:12 PM CDT Anesthesia Event [facility] [address] [place] [address] Henry Sands MD 5 1:00 PM CDT - 5 1:30 PM CDT Surgery [facility] [address] [place] [address] Arthur Murphy MD ESOPHAGOGASTRODUODENOSCOPY BIOPSY 5 11:55 AM CDT - 5 2:38 PM CDT Hospital Encounter [facility] [address] [place] [address] Arthur Murphy MD Gastroesophageal reflux disease, unspecified whether esophagitis present; Abdominal pain; Change in bowel habits; Blood in stool; Bloating; Constipation, unspecified constipation type; Gallbladder polyp Discharge Disposition: Discharge to home or self care 5 3:30 PM CDT Office Visit [facility] Family Medicine [address] [phone] Dawood Torres MD Chest pain, unspecified type (Primary Dx); Dry eye syndrome of both eyes; Acute pain of left shoulder; Paresthesias; Morbid obesity with BMI of 40.0-44.9, adult ([facility]) 5 Orders Only [facility] Gastroenterology at [address] [phone] Arthur Murphy MD Gastroesophageal reflux disease, unspecified whether esophagitis present (Primary Dx); Abdominal pain; Change in bowel habits; Blood in stool; Bloating; Constipation, unspecified constipation type; Gallbladder polyp 5 3:30 PM CDT Office Visit [facility] Gastroenterology at [address] [phone] Natacha Hernandez DNP Gallbladder polyp (Primary Dx); Constipation, unspecified constipation type; Bloating; Blood in stool; Change in bowel habits; Abdominal pain; Gastroesophageal reflux disease, unspecified whether esophagitis present 5 Telephone [facility] Gastroenterology at [address] [place] [address] Natacha Hernandez DNP Scheduling Appointments 5 Orders Only [facility] Gastroenterology at [address] [place] [address] Arthur Murphy MD Nausea and [...] on file 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 Gender Identity Not on file Sexual Orientation [...] Last 3 Months Results * Thyroid Function Archer (04/16/2025 11:23 AM CDT) TSH 2.71 mIU/L [facility] Comment: Reference Range > or = 20 Years 0.40-4.50 Ranges First trimester 0.26-2.66 Second trimester 0.55-2.73 Third trimester 0.43-2.91 04/16/2025 11:2 3 AM CDT 04/16/2025 11:25 AM CDT [facility] - 04/17/2025 6:45 AM CDT FASTING:YES FASTING: YES us Nicolette Duncan MD LAB BLOOD ORDERABLE S Final Result [facility] [address] [place] [address] * CBC with auto differential (04/16/2025 11:23 [...] BLOOD ORDERABLE S Final Result [facility] [address] [address] [address] * Hepatitis C antibody (04/16/2025 11:23 AM CDT) Hep C Ab NON-REACTI VE NON-REACT MONICA [facility] Comment: HCV antibody was non-reactive. There is no laboratory evidence of HCV infection. In most cases, no further action is required. However, if recent HCV exposure is suspected, a test for HCV RNA (test code 64670) is suggested. For additional information please refer to http://education.Telepath/faq/FEU12o6 (This link is being provided for informational/ educational purposes only.) 04/16/2025 11:2 3 AM CDT 04/16/2025 11:25 AM CDT Narrative [facility] - 04/17/2025 6:45 AM CDT FASTING:YES FASTING: YES Nicolette Duncan MD LAB MICROBIOLOGY - GENERAL ORDERABLES Final Result Performing Organization Address City/[facility]/ZIP Co de Phone Number [facility] [address] [place] [address] * Prolactin (04/16/2025 11:23 AM CDT) Pathologist [facility] Prolactin 6.5 ng/mL [facility] Comment: Reference Range Females Non- 3.0-30.0 10.0-209.0 Postmenopausal 2.0-20.0 04/16/2025 11:2 3 AM CDT 04/16/2025 11:25 AM CDT Narrative [facility] - 04/17/2025 6:45 AM CDT FASTING:YES FASTING: YES us Nicolette Duncan MD LAB BLOOD ORDERABLE S Final Result Performing Organization Address City/[facility]/ZIP Co de Phone Number [facility] [address] [place] [address] * (ABNORMAL) DHEA-sulfate (04/16/2025 11:23 AM CDT) Pathologist [facility] DHEA-S 355(H) 14 - 349 mcg/dL [facility] 04/16/2025 11:2 3 AM CDT 04/16/2025 11:25 AM CDT Narrative [facility] - 04/17/2025 6:45 AM CDT FASTING:YES FASTING: YES Nicolette Duncan MD LAB BLOOD ORDERABLE S Final Result Performing Organization Address City/[facility]/ZIP Co de Phone Number [facility] [address] [address] [address] * Lipid panel (04/16/2025 11:23 AM CDT) Pathologist [facility] Cholesterol 166 <200 mg/dL [facility] [...] LDL-C. Yosef SS et al. GURPREET. 2013;310(19): 4433-6671 (http://education.MOF Technologies/faq/VBW432) Chol/HDL ratio 3.2 <5.0 (calc) [facility] [...] BLOOD ORDERABLE S Final Result [facility] [address] [address] [address] * Comprehensive metabolic panel (04/16/2025 11:23 AM [...] MD LAB BLOOD ORDERABLE S Final Result [facility] [address] [address] [address] * RUQ Ultrasound (03/23/2025 7:00 AM CDT) [...] Electronically signed by Lobito LAMAS Report ID: [id number] Reading Location: [id number] Procedure Note Lobito Cummings MD - 03/25/2025 [...] signed by Lobito LAMAS: CYDNEY Report ID: [id number] Reading Location: [id number] Natachadurga Henderson Hernandez [facility] PROCEDURES Mariama means Result * Surgical pathology (03/09/2025 1:21 PM CDT) Tissue (Duodenum, Biopsy) 03/09/2025 1:21 PM CDT Comment:Cold bx Tissue specimen (specimen) (Gastric/Stomach biopsy) 03/09/2025 1:21 PM CDT Comment:Cold bx Tissue specimen (specimen) (Esophageal biopsy) 03/09/2025 1:21 PM CDT Comment:Cold bx Tissue specimen (specimen) (Colon, Biopsy) 03/09/2025 1:30 PM CDT Comment:Cold bx Narrative PATHOLOGY [facility] - 03/11/2025 1:13 PM CDT [facility] Department of Pathology [address] [place] [address] Note to Patients: This report may contain [...] : 2000 (Age: 25) Gender: F Address: [address] [place] [address] Hospital #: [id number] Service: Gastro Location: Patient Type: [facility] OUTPATIENT Taken: 03/09/2025 Received: 03/10/2025 Accessioned: 03/10/2025 [...] random colon, biopsy - Normal colonic mucosa Lidna Randall MD Report Electronically Reviewed and Signed [...] Placed between sponges. Labeled D1. Jar 0. [facility]/03/10/2025 11:10 Monica Severino, MS, PA (A Microscopic slide review and interpretation for this case was performed at [facility], Department of Surgical Pathology, [address] [facility] [address], [id number], [place] [address] CLIA # [id number] Arthur Murphy MD LAB PATHOLOGY ORDERABLES Final R esult PATHOLOGY [facility] * EGD (03/09/2025 1:11 PM CDT) Anatomical Region Laterality Modality Other Narrative Procedure Note Arthur uMrphy MD - 03/09/2025 1:11 PM CDT [facility] GI ENDOSCOPY Patient Name: Jenni Figueroa Procedure Date: 03/09/2025 1:11 PM Date of : 2000 Admit Type: Outpatient Age: 25 Gender: Female Attending MD: Arthur Murphy M.D., Room: [facility] ENDOSCOPY ROOM 03 Note Status: Finalized Procedure: [...] On: 03/09/2025 1:11 PM Recognized by the [employer] for promoting quality in endoscopy us Arthur Murphy MD ENDOSCOPY PROCEDURES Final Resul t * Colonoscopy (03/09/2025 1:11 PM CDT) Anatomical Region Laterality Modality Other Narrative Procedure Note Arthur Murphy MD - 03/09/2025 1:11 PM CDT [facility] GI ENDOSCOPY Patient Name: Jenni Figueroa Procedure Date: 03/09/2025 1:11 PM Date of : 2000 Admit Type: Outpatient Age: 25 Gender: Female Attending MD: Arthur Murphy M.D., Room: [facility] ENDOSCOPY ROOM 03 Note Status: Finalized Procedure: [...] On: 03/09/2025 1:11 PM Recognized by the [employer] for promoting quality in endoscopy Arthur Murphy MD ENDOSCOPY PROCEDURES Final Resul t * (ABNORMAL) POC Blood Gas and Chemistries, Venous - (03/09/2025 1:00 PM CDT) pH,lolita POC 7.40 7.32 - 7.43 pCO2, lolita POC 36(L) 40 - 50 mmHg [facility] pO2,lolita POC 34 mmHg [facility] Comment: Interpretive Data No reference range established. Current interpretive data was last revised 2020. HCO3, lolita (Calc) POC 23 20 - 30 mmol/L [facility] Base excess, lolita POC -2 mmol/L [facility] Comment: Interpretive Data No reference range established. Current interpretive data was last revised 2020. Hemoglobin, lolita POC 12.6 11.9 - 15.5 g/dL [facility] Hematocrit, lolita POC 37.0 35.6 - 45.5 % [facility] Sodium, lolita POC 141 135 - 145 mmol/L [facility] Potassium, lolita POC 3.7 3.3 - 4.9 mmol/L [facility] Comment: Interpretive Data This method is not able to assess for hemolysis, which may falsely increase potassium concentrations. If further testing is needed to evaluate this result, consider in-laboratory plasma potassium. Current Interpretive Data was last revised on 2022. Glucose, lolita POC 98 70 - 199 mg/dL [facility] Ionized Calcium, lolita POC 5.00 4.50 - 5.10 mg/dL [facility] Blood 03/09/2025 1:00 PM CDT 03/09/2025 1:00 PM CDT Arthur Murphy MD LAB POCT ORDERABLES - DEVICE Fin al Result [facility] [address] [facility] Department [place] [address] * POCT hCG, urine (03/09/2025 12:35 PM CDT) HCG, ur, POC Negative Negative Lot Number [id number] QC Backgroud Clear Acceptable QC Control Line Acceptable Urine 03/09/2025 12:3 5 PM CDT Henry Sands MD POINT OF CARE TEST ORDERAB LES Final Result * ECG 12 lead (02/25/2025 4:02 PM CDT) Dawood Torres MD ECG ORDERABLES Final Result from Last 3 Months Insurance [facility] H[facility] Care Teams Ultrasonic Tester Relationship Specialty Start Date End Date Nicolette Duncan MD [address] [place] [address] PCP - General Family Medicine 02/05/21
--- OUTSIDE RECORDS SUMMARY | 2025-04-26 20:19 | XMS_ITS | Encounter Summary ---
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
--- OUTSIDE RECORDS SUMMARY | 2025-04-26 20:19 | XMS_ITS | Clinical Summary ---
Author Organization [email or web address] Address [address] [place] [address] Care Team Providers Care Cook 3 Pastry Name Role Phone Unavailable Primary Care Provider Unavailabl e Source Comments [email or web address],non-owned Affiliates and Associated Physician Practices is amultiple site organization consisting of ambulatory clinics and hospital sitesin [place], [place] and [place]. This disclosure is being madepursuant to the Care Everywhere program and may not contain all information available regarding this patient. Last updated [email or web address] Social History Tobacco Use Types Packs/Day Years [...]
--- OUTSIDE RECORDS SUMMARY | 2025-04-26 20:19 | XMS_ITS | Encounter Summary ---
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 Patient scheduled self at [facility] this evening for evaluation. Provider contacted via secure chat for ED disposition consult. Recommendation from provider:Other: send to [facility] for ultrasound. Caller is agreeable. CC appointment [...] Additional Information on file. Protocols Used Leg Uarv-Hqnoe-BA * Telephone Encounter - Sadaf Mendoza RN [...] on filedocumented in this encounter Care Teams Insurance Customer Service Specialist Relationship Specialty Start Date End Date Nicolette Duncan MD [facility] [address] [place] [address] PCP - General Family Medicine 02/05/21 documented as of this encounter
--- OUTSIDE RECORDS SUMMARY | 2025-04-26 20:19 | XMS_ITS | Encounter Summary ---
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
--- OUTSIDE RECORDS SUMMARY | 2025-04-26 20:19 | XMS_ITS | Encounter Summary ---
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
--- OUTSIDE RECORDS SUMMARY | 2025-04-26 20:19 | XMS_ITS | Encounter Summary ---
Author Organization [facility] Address [address] [facility] [place] [address] Care Team Providers Care Icu Registered Nurse Name Role Phone Unavailable Primary Care Provider Unavailabl e Encounter Details Date Type Department Care Team (Late st Contact Info) Description 04/22/2023 Lab Requisition [facility] - D[facility] Lab [address] [facility], [place] [address] Frandy Kelly MD [facility] DERMATOLOGY [address] [place] [phone] Neoplasm of uncertain behavior of skin [...] AM CDT) Case Report Dermatopathology Report Case: [id number] Authorizing Provider: Frandy Kelly MD Collected: 04/22/2023 03:33 AM Ordering Location: [facility] Lab Received: 04/23/2023 01:17 PM [...] characteristic determined by the Dermatopathology Laboratory at [facility], directed by Dr. Rico Lopez. These tests need not be, and therefore are not, approved by the [place] Food and Drug Administration. The tests are used for clinical purposes. Billing Codes Specimen Charges Stain Charges 18215 80928 1 1 3 3:32 PM CDT DERMATOPATHOLOGY LABORATORY Embedded Images 3:32 PM CDT DERMATOPATHOLOGY LABORATORY Pathology/Cytology TISSUE SPECIMEN FROM SKIN / Unknown 04/22/2023 3:33 AM CDT 04/23/2023 1:17 PM CDT Miscellaneous samples (specimen) TISSUE SPECIMEN FROM SKIN / Unknown 04/22/2023 3:33 AM CDT 04/23/2023 1:17 PM CDT us Frandy Kelly MD LAB - PATHOLOGY/CYTOLOGY JOSSE SHORT Final Result DERMATOPATHOLOGY LABORATORY [facility] - Department of Dermatology [facility] Specialized Medicine [address] [place] [address], [address] [phone] documented in this encounter Visit Diagnoses Diagnosis Neoplasm of uncertain behavior of skin documented in this encounter
== END 2025-04-26 20:26 | disposition home or self-care (01) ==
PROVIDERS: Emergency Provider Student in an Organized Health Care Education/Training Program; PCP Family Medicine
DX: M79.605 Pain in left leg (principal)
CPT/HCPCS: 93971; 99284

== ENCOUNTER 2025-05-04 18:13 | Emergency (ER) | payer OTHER, SELFPAY ==
--- OUTSIDE RECORDS SUMMARY | 2024-06-03 09:45 | XMS_ITS ---
Author Organization [facility] Address [address] [place], [place] [id number] Care Team Providers Care Ends Breakage Clerk Name Role Phone Horace Lala DO Unavailable [phone] Allergies No Known Allergies REASON FOR VISIT CARBIDE DIE MAKER- patient requested Discuss Both Surgical & Medical Weight Loss but has a qualifying BMI for weight loss surgery Encounters Encounter Location Date Provider Diagnosis [facility] [address] [facility] [address] [place], [place] [id number] 06/03/2024 Horace Lala Plan Of Treatment No Information Procedure Notes * Category Sub-Category Detail Notes SURGICAL PLAN Consults: Consult shannon eason nutrition for: months of preoperative supervised diets, consult bariatric psychology, consult primary care physician for medical clearance/recommendation, consult anesthesia/PACE clinic for preoperative clearance Diagnostic Tests: Test: CBC, CMP, Lipi d Panel, LFTs, Thyroid, Function, Vit B-1, Vit B-12, Iron Levels, H.Pylori, CXR, EKG, Coloniscopy, EGD, UGI Surgical Procedure: 1. Laparoscopic: . I have us e an anatomical chart to show the postsurgical changes that occur. I discussed expected weight loss and about common early & late complications associated with the procedure; including, but not limited to, leaks, strictures, bleeding, infection, hernia, and small bowel obstructions. Discussed dumping syndrome in detail & how dietary choices can worsen this. I discussed the need for postoperative vitamins lifelong. I have discussed postsurgical follow-up. I discussed the need for supervised bariatric nutrition prior to surgery as well as mental health evaluation. Progress Notes * Jenni FIGUEROADOB:[birth year] (25 yo F)Acc No.[id number]:06/03/2024 Patient: Jenni GUO Provider: Isabell Lala DO :2000 A ge:24 Y S ex:Female Date:06/03/2024 Address:[address] [id number] Subjective: * Chief Complaints: * 1 . CARBIDE DIE MAKER- patient requested Discuss Both Surgical & Medical Weight Loss but has a qualifying BMI for weight loss surgery. * HPI: B ariatrics: What is your lowest weight since age 18? 2 60. What is your highest weight since age 18? 3 03. When did you start to gain weight? W as always overweight, seemed to ramp up around 18. When did you start to feel weight was a problem? A round 2019. How long have you felt you were heavy? I have always been heavy since starting school.. Have you undergone any previous gastric surgery, stomach stapling? Y es. If you have undergone previous gastric surgery, what type of surgery and when? N o. Choose the reason(s) which best describe why you are pursuing weight loss at this time (_select all that apply). T o improve self esteem,To improve back pain/joint pain,To improve activity level. I am interested in: (_select all that apply) U ndecided.? What is your expected weight loss after treatment? (in pounds)?100. Diet History: previous diet attempts (_select all that apply)?Diet and Exercise. Eating Behaviors: I tend to eat (_select all that apply) F ast Food,Carbohydrates,Sweets,Emotional Eating ([id number]),Poor Food Choices. What is your typical eating pattern for lunch? T steven out.? What is your typical eating pattern for dinner? D epends usually what is around. What is your typical eating pattern when snacking N ot a huge snacker usually just bigger meals. What is your typical eating pattern when drinking beverages??Water or diet coke. What is your typical eating pattern for breakfast? E ggs.? Are you currently exercising? N o. How often do you exercise? N /A. Do you believe that exercise will be important after weight loss surgery? Y es. Have you ever been hospitalized for treatment of a psychological disorder or addiction? N o. What is your chance of dozing or sleeping while: sitting and reading? w ould never doze or sleep. What is your chance of dozing or sleeping while: Watch TV? w ould never doze or sleep. What is your chance of dozing or sleeping while: Sitting inactive in a public place? w ould never doze or sleep. What is your chance of of dozing or sleeping while: Being a passenger in a motor vehicle for an hour or more? w ould never doze or sleep. What is your chance of dozing or sleeping while: Lying down in the afternoon? s light chance of dozing or sleeping. Have You had a sleep study done? N o. Have you been prescribed a CPAP/BIPAP machine, are you using it? N o. If you have been prescribed a CPAP/BIPAP machine? are you using it? N o. BARIATRIC HISTORY AND PHYSICAL P elbert is a very pleasant adult who presents with complaints of morbid obesity with significant comorbidities despite multiple failed attempts at weight loss through dietary & exercise programs. Her weight is severely limiting her physical activity & overall lifestyle. She has been obese for several years . Ann del cid are interested in learning about possible surgical options to help their fight against obesity. Aforementioned attempts at weight loss have included a variety of exercise routines, exercise videos, low-fat/low-calorie diets, and commercial weight loss programs, such as Weight Watchers . Guilherme elbert d oes complain of food-related gastroesophageal reflux a nd patient d enies dysphagia. O BESITY-RELATED COMORBIDITIES: G astroesophageal Reflux disease (GERD),Back Pain,Arthritis Tobacco Counseling: Guilherme boswell i s not a tobacco/nicotine user. Medications N one. * ROS: G eneral / Constitutional: Patient: denies chills, fever, unexpected weight loss, weakness. H EENT: Patient: d enies double vision, hearing loss, epistaxis, sore throat. E ndocrine: Patient: d enies cold intolerance, heat intolerance, flushing, fingernail changes, increased thirst, increased salt intake, decreased sexual desire. R espiratory: Patient: denies cough, w aking at night coughing or choking, repeated pneumonias, wheezing, or night sweats. C ardiovascular: Patient: d enies chest pain, irregular heart beats, shortness of breath, or syncope.Endorses dyspnea on exertion. G astrointestinal: Patient: d enies blood in stool, constipation, diarrhea, regurgitation, nausea and vomiting, frequent belching, black tarry stools, or h emorrhoids. ? H ematology: Patient: d enies easy bruising, bleeding. G enitourinary: Patient: d enies pain or burning with urination, blood in the urine. M usculoskeletal: Patient: d enies arm, buttock, thigh or calf cramps.Endorses joint pain and back pain. S kin: Patient: d enies easy bruising, skin redness, skin rash, hives. N eurologic: Patient: denies h eadache, dizziness, fainting, muscle spasm, loss of consciousness, sensitivity or pain in the hands and feet, memory loss. ? P sychiatric: Patient: d enies depression, anxiety, suicidal thoughts, homicidal thoughts. I mmunological:: Patient: denies tuberculosis, hepatitis, HIV/AIDS.? * Medical History: G allbladder issues, Liver disease, Anemia: Gallbladder problems,Liver disease or Abnormal liver test. * Surgical History: D enies Past Surgical History. * Family History: F ather: None. M other: None. P aternal Grandfather: Obesity. P aternal Grandmother: Obesity. M aternal Grandfather: Obesity. M aternal Grandmother: Cancer. * Social History: M igrated Social History: M igrated Social History: Never a smoker. 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 T obacco Use: H istory D o you smoke? N o I am not a smoker D o you use any other nicotine products? (vapor cigarettes, smokeless tobacco, nicotine gum, nicotine patches, etc) N o D o You have a history of prescription or non- prescription substance abuse? N o A lcohol Use: H istory D o you consume alcohol? Y es I do drink alcohol D o you have a history of alcoholism? N o E ducation and Work: H istory W hat is your highest level of education? H igh School or GED D iet and Eating Habits: D o you plan meals in advance? N o. Do you skip meals? N o. Do you eat at night? Y es. Where do you grocery shop S chnucks,[employer]. * Medications: N one * Allergies: N .K.D.A. Objective: * Vitals: * Examination: P hysical Exam: General Appearance: O janie adult who is a lert, in no acute distress. Eyes: C onjunctivae clear, sclerae normal without icterus, pupils equal, round, reactive to light and accommodation. Ears/Nose/Mouth/Throat: E xternal ears normal, canals clear, TM's normal, Nares normal, Septum midline, Mucosa normal, No drainage or sinus tenderness, Lips, mucosa, and tongue normal, teeth and gums normal, oropharynx normal. Neck: S upple, no adenopathy. Trachea midline and t hyroid symmetric, n o JVD or bruits. Respiratory: C lear to auscultation bilaterally, breathing comfortably on room air. Cardiovascular: R egular rate and rhythm, distal pulses intact bilaterally. Abdomen: S oft, non-tender, non-distended, obese. Lymph Nodes: N o cervical lymphadenopathy. Musculoskeletal: S pine range of motion normal, Muscular strength intact, No joint swelling, deformity or tenderness. Skin: N o rashes or lesions noted. Neurological: M ental status intact, CNII-XII intact, speech is clear and fluent. Psychiatric: A &O x3, judgement/insight appropriate.? Assessment: Plan: * Treatment: * Procedures: S URGICAL PLAN: Consults: C onsult bariatric nutrition for m onths of preoperative supervised diets, consult bariatric psychology, consult primary care physician for medical clearance/recommendation, consult anesthesia/PACE clinic for preoperative clearance Diagnostic Tests: T est C BC, CMP, Lipid Panel, LFTs, Thyroid, Function, Vit B-1, Vit B-12, Iron Levels, H.Pylori, CXR, EKG, Coloniscopy, EGD, UGI Surgical Procedure: 1 . Laparoscopic . I have use an anatomical chart to show the postsurgical changes that occur. I discussed expected weight loss and about common early & late complications associated with the procedure; including, but not limited to, leaks, strictures, bleeding, infection, hernia, and small bowel obstructions. Discussed dumping syndrome in detail & how dietary choices can worsen this. I discussed the need for postoperative vitamins lifelong. I have discussed postsurgical follow-up. I discussed the need for supervised bariatric nutrition prior to surgery as well as mental health evaluation. 2 .Preoperative work-up as detailed above. 3.All risks and benefits were discussed with the patient including: Intra- operative and/or Immediate Post-operative Risks: *: The mortality rate of the sleeve gastrectomy nationwide is 0.3% to 2%. Mortality rate associated with the gastric bypass is slightly higher-0.5 to 3%. *Significant Bleeding: Bleeding may occur unexpectedly in the operating room. Bleeding may also occur post-operatively in the days after the operation. This bleeding may be through the intestinal tract at the staple line and result in the passage of blood in the stool. Bleeding may also be unseen inside the abdomen and be diagnosed through other means. A transfusion may be necessary in some circumstances. Re-operation to stop bleeding may be necessary. If the spleen is injured during the surgery, it may need to be removed. *Anastomotic Leak: A leak is when the stapled part of the stomach does not heal. Serious complications can result from a leak, including, but not limited to a prolonged hospital stay, more operations, a long period of nothing to eat, prolonged antibiotic requirements, organ failure and . The reported incidence of anastomotic leak nationwide ranges from 0.5% to 3%. *Renal Failure: Transient kidney (renal) failure occurs rarely. Irreversible kidney failure has been reported in rare cases. *Prolonged Ventilation: A prolonged stay on a ventilator (breathing machine) in the intensive care unit may occur if a patient has severe sleep apnea or after certain significant complications. A temporary tracheostomy may be necessary. *Heart Attack: Although a heart attack is possible after a laparoscopic possible open sleeve gastrectomy, it is very rare. Risk factors for heart disease include increased age, diabetes, hypertension, hypercholesterolemia and a family history of heart disease. *Prolonged Hospital Stay: Unforeseen complications may result in a prolonged hospital stay. Intensive care admission may be required. *Bowel Obstruction (in undergoing the gastric bypass): An obstruction can occur from a number of causes, such as bleeding, scarring, technical problems or hernia, & may require reoperation. *Deep Vein Thrombosis (DVT)/Pulmonary Embolism: Blood clots that form in the legs, and elsewhere, and break off into the lungs may cause . Given this risk, treatments may be initiated to decrease the risk for the formation of blood clots, including the use of heparin (a medication that thins the blood), special foot and leg stockings, walking soon after surgery and medication at home after discharge from the hospital. Completely eliminating the risks of DVT (clots) altogether is not possible. The risks associated with the medications used to prevent blood clots can include excessive bleeding. Any symptoms of leg swelling, chest pain or sudden shortness of breath should be immediately reported to the surgeon. Rarely, patients develop allergies to heparin, sometimes causing very severe reactions. *Other Complications that may be common: Allergic reactions, headaches, itching, medication side-effects, heartburn/reflux, bruising, gout, anesthetic complications, injury to the bowel or vessels, gas bloating, minor wound drainage, wound opening, scar formation, stroke, urinary tract infection, urinary retention, pressure sores, injury to spleen or surrounding structures, and pneumonia. * Billing Information: * Visit Code: * Procedure Codes: * Electronic signature of Girish Lala DO, [id number] on 05/05/2025 at 03:34 PM DIE OPERATOR Sign off status: Pending * Provider: Isabell Lala DO Date: 08/04/2023 Generated for Lolis daily/Vamsi/Orestes on: 07/05/2024 03:34 PM DIE OPERATOR History and Physical Notes * HPI (History of Present Illness) Category Sub-Category Detail Notes Category Not es Bariatrics Have you undergone a ny previous gastric surgery, stomach stapling? Yes If you have undergone previo us gastric surgery, what type of surgery and when? No Choose the reason(s) which b est describe why you are pursuing weight loss at this time (_select all that apply). To improve self esteem,To improve back pain/joint pain,To improve activity level I am interested in: (_select all that apply) Undecided What is your expected weight loss after treatment? (in pounds) 100 Diet History: previous diet attempts (_select all that apply) Diet and Exercise Eating Behaviors: I tend to eat (_select all that apply) Fast Food,Carbohydrates,Sweets,Emotional Eating (uibekr-wekbeob-yvyihvrhfx),Poor Food Choices What is your typical eating pattern for breakfast? Eggs What is your typical eating pattern for lunch? Take out What is your typical eating pattern for dinner? Depends usually what is around What is your typical eating pattern when snacking Not a huge snacker usually just bigger meals What is your typical eating pattern when drinking beverages? Water or diet coke Are you currently exercising? No How often do you exercise? N/A Do you believe that exercise will be important after weight loss surgery? Yes Have you ever been hospitali zed for treatment of a psychological disorder or addiction? No What is your chance of dozin g or sleeping while: sitting and reading? would never doze or sleep What is your chance of dozin g or sleeping while: Watch TV? would never doze or sleep What is your chance of dozin g or sleeping while: Sitting inactive in a public place? would never doze or sleep What is your chance of of do zing or sleeping while: Being a passenger in a motor vehicle for an hour or more? would never doze or sleep What is your chance of dozin g or sleeping while: Lying down in the afternoon? slight chance of dozing or sleeping Have You had a sleep study done? No Have you been prescribed a C PAP/BIPAP machine, are you using it? No If you have been prescribed a CPAP/BIPAP machine? are you using it? No BARIATRIC HISTORY AND PHYSICAL Patient i s a very pleasant adult who presents with complaints of morbid obesity with significant comorbidities despite multiple failed attempts at weight loss through dietary & exercise programs. Her weight is severely limiting her physical activity & overall lifestyle. She has been obese for several years: . They are interested in learn ing about possible surgical options to help their fight against obesity. Aforementioned attempts at weight loss have included a variety of exercise routines, exercise videos, low-fat/low-calorie diets, and commercial weight loss programs, such as Weight Watchers: . Patient: does complain of food-related g astroesophageal reflux and patient: denies dysphagia. OBESITY-RELATED COMORBIDITIE S:: Gastroesophageal Reflux disease (GERD),Back Pain,Arthritis What is your highest weight since age 18 ? 303 What is your lowest weight since age 18? 260 Tobacco Counseling: Patient: is not a tobacco/ni cotine user. When did you start to gain weight? Was a lways overweight, seemed to ramp up around 18 When did you start to feel w eight was a problem? Around 2019 How long have you felt you were heavy? I have always been heavy since starting school. Medications None Examination Category Sub-Category Detail Notes Category Not es Physical Exam General Appearance: Obese adult who is alert, in no acute distress Eyes: Conjunctivae clear, sclerae normal without icterus, pupils equal, round, reactive to light and accommodation Ears/Nose/Mouth/Throat: External ears no rmal, canals clear, TM's normal, Nares normal, Septum midline, Mucosa normal, No drainage or sinus tenderness, Lips, mucosa, and tongue normal, teeth and gums normal, oropharynx normal Neck: Supple, no adenopath y. Trachea midline and thyroid symmetric, no JVD or bruits Respiratory: Clear to auscultatio n bilaterally, breathing comfortably on room air Cardiovascular: Regular rate and rhy thm, distal pulses intact bilaterally Abdomen: Soft, non-tender, no n-distended, obese Lymph Nodes: No cervical lymphade nopathy Musculoskeletal: Spine range of motio n normal, Muscular strength intact, No joint swelling, deformity or tenderness Skin: No rashes or lesions noted Neurological: Mental status intact , CNII-XII intact, speech is clear and fluent Psychiatric: A&O x3, judgement/in sight appropriate
[2025-05-04 18:26] VITALS: BP 112/66; PULSE 86; RESP 20; TEMP 36.1; O2SAT 99
[2025-05-04 18:34] LABS: EDUAAPPEAR Cloudy; EDUABILI Negative (Negative); EDUABLOOD Negative (Negative); EDUACOLOR1 Yellow; EDUAGLUCOSE Negative (Negative); EDUAKETONE Negative (Negative); EDUALEUKO Negative (Negative); EDUANITRATE Negative (Negative); EDUAPH 6.0; EDUAPROTEIN 1+ (Negative); EDUASPGRAVITY 1.030; EDUAUROBILI 0.2
--- NOTE | 2025-05-04 19:03 | ED.FEMALEGU ---
HPI - Female Genitourinary General Chief complaint: Urogenital-Female Stated complaint: UTI Time Seen by Provider: 05/04/25 18:57 Source: patient and RN notes reviewed Mode of arrival: ambulatory Limitations: no limitations History of Present Illness HPI Narrative: 25-year-old female patient presents today with 5 day history of urinary frequency and a 2 day history of dysuria. Denies any additional symptoms to include hematuria, fever, vaginal itching or discharge, abdominal or back pain, recent antibiotic use. She has tried ibuprofen with some mild relief. Related Data Home Medications ?Medication ?Instructions ?Recorded ?Confirmed ?Last Taken ?Type minoxidil 2.5 mg tablet 2.5 mg PO DAILY 06/10/24 05/04/25 Unknown History tirzepatide (weight loss) 12.5 mg subcut 12/07/24 12/07/24 Unknown History mg/0.5 mL subcutaneous pen injector (Zepbound) Allergies Allergy/AdvReac Type Severity Reaction Status Date / Time No Known Allergies Allergy Verified 05/04/25 18:29 [facility] Past Medical History Medical History Anxiety Hair loss Surgical History Surgical History No significant past surgical history Family History Family History Grandparent Breast cancer mat grandmother Other Asthma Social History Social History Alcohol intake: current Substance use: never Substance use type: does not use Do You Feel Safe in your Home?: Yes Lack of Transportation: No Lack of Food: Never True Current Housing: I Have Housing Concerned About Future Housing: No Difficulty Paying Gas/Electric Bills: No Currently Unemployed: No Education: High School Diploma/GED Difficulty w/ Childcare or Family Care: No Living arrangements: with roommate(s) Occupation/Education: occupation Gender identity (if verbalized by the patient): Female Sexual Orientation (if Verbalized by the Patient): Lesbian, Bonilla, or Homosexual Comments At time of signature, I have reviewed and agree with nursing past medical, surgical, social and family history unless otherwise noted. Please see nursing chart for further information. There is no relevant family history pertinent to the presenting complaint Exam Narrative: GENERAL: Well-appearing, well-nourished, and in no acute distress. HEAD: Normocephalic, atraumatic. EYES: EOMI. No redness or drainage. Conjunctivae normal. ENT: Mucous membranes pink and moist. NECK: Normal AROM. CHEST: No respiratory distress. Clear to auscultation. HEART: Regular rate and rhythm. No murmur appreciated. ABDOMEN: Soft, nontender, nondistended, normal active bowel sounds. -CVAT EXTREMITIES: Normal range of motion. No edema. SKIN: Warm, dry, no rash. Capillary refill normal. Normal skin turgor. NEURO: No focal deficits. Alert and oriented x3. Gait steady. PSYCH: Normal affect. No signs of depression or anxiety. Course Course Level of Care: Express Care Visit Vital Signs Vital signs: Vital Signs Temperature 97 F L 05/04/25 18:26 Pulse Rate 86 05/04/25 18:26 Respiratory Rate 20 05/04/25 18:26 Blood Pressure 112/66 05/04/25 18:26 Pulse Oximetry 99 05/04/25 18:26 Oxygen Delivery Room Air 05/04/25 18:26 Temperature 97 F L 05/04/25 18:26 Pulse Rate 86 05/04/25 18:26 Respiratory Rate 20 05/04/25 18:26 Blood Pressure 112/66 05/04/25 18:26 Pulse Oximetry 99 05/04/25 18:26 Oxygen Delivery Room Air 05/04/25 18:26 Reviewed MDM - Female Genitourinary MDM Narrative Medical decision making narrative: 25-year-old female patient presents today with 5 day history of urinary frequency and a 2 day history of dysuria. Denies any additional symptoms to include hematuria, fever, vaginal itching or discharge, abdominal or back pain, recent antibiotic use. She has tried ibuprofen with some mild relief. Normal physical exam. Urinalysis abnormality includes 1+ protein, otherwise normal. Based on patient's complaint, she will be started on some Macrobid while culture is pending. Vital signs stable. Patient agrees with plan. Anticipatory guidance given. Differential Diagnosis Differential diagnosis: Likely urinary tract infection, vaginitis and cystitis Lab Data Attestation: I reviewed the patient's lab results. Labs: Lab Results 05/04/25 Range/Units 18:33 POC Urine Color Yellow POC Urine Clarity Cloudy POC Urine pH 6.0 POC Ur Specif [place] 1.030 POC Urine Protein 1+ (Negative) POC Ur Glucose (UA) Negative (Negative) POC Urine Ketones Negative (Negative) POC Urine Blood Negative (Negative) POC Urine Nitrite Negative (Negative) POC Urine Bilirubin Negative (Negative) POC Urine Urobilinogen 0.2 POC U Leukocyte Esteras Negative (Negative) Critical Care Time Critical Care Time Critical Care Time: No Discharge Plan Discharge Clinical Impression: Urinary tract infection Qualifiers: Urinary tract infection type: acute cystitis Hematuria presence: without hematuria Qualified Code(s): N30.00 - Acute cystitis without hematuria Patient Disposition: Home Condition: Stable Instructions: Antibiotic Form, Urinary Tract Infection in Women (DC) Additional Instructions: Please take the Macrobid as prescribed. If your antibiotic needs to be changed based on your urine culture results in a few days, you will be notified by telephone. As discussed, if symptoms worsen to include fever, severe abdominal or back pain, nausea or vomiting, sweats or chills, please go to the ER immediately for further evaluation. Patient Language: Icelandic Prescriptions: New nitrofurantoin monohyd/m-cryst [Macrobid] 100 mg capsule 100 mg PO Q12H 7 Days Qty: 14 0RF Rx Instructions: must administer with a meal/food No Action minoxidil 2.5 mg tablet 2.5 mg PO DAILY Zepbound 12.5 mg/0.5 mL pen injector subcut dicyclomine 20 mg tablet 20 mg PO TID PRN (Reason: abdominal pain) Qty: 14 0RF alum-mag hydroxide-simeth [Maalox Advanced] 200-200-20 mg/5 mL suspension 15 ml PO QID PRN (Reason: dyspepsia) Qty: 3000 0RF Rx Instructions: administer between meals and at bedtime famotidine [Pepcid] 20 mg tablet 20 mg PO BID Qty: 20 0RF Follow-up/Referrals: Perla,MD Nicolette [Primary Care Provider, Unknown] Time of Disposition: 19:06
--- OUTSIDE RECORDS SUMMARY | 2025-05-05 15:33 | XMS_ITS | Clinical Summary ---
Author Organization [facility] Care Team Providers Care Electrical And Instrument Engineer Name Role Phone Unavailable Primary Care Provider Unavailabl e Social History Tobacco Use Types Packs/Day Years Used Date Smoking Tobacco: Never Assessed Comments Unknown Sex and Gender Information Value Date Recorded Sex Assigned at Not on file Legal Sex Female 10:52 AM ALLERGY SPECIALIST Gender Identity Not on file Sexual Orientation Not on file Plan of Treatment Health Maintenance Due Date Last Done Comments Hepatitis C Virus (HCV) Screening 2000 TdaP Immunization 2000 Human Papillomavirus (HPV) Immunization (1 - 3-dose series) 01/09/2015 Hepatitis B Immunization (1 of 3 - 19+ 3-dose series) 01/09/2019 Influenza Immunization (#1) 2025 SARS-COV-2 Immunization (2024- season) 2025 11/11/2020, 10/13/2020 Respiratory Syncytial Virus [...]
--- OUTSIDE RECORDS SUMMARY | 2025-05-05 15:33 | XMS_ITS | Clinical Summary ---
Author Organization [address] Address [address] [phone] Care Team Providers Care Sample Box Maker Name Role Phone Nicolette Duncan MD Primary [...] the discretion of the patient. Also recommend txrj-jxy-oxkhncz fiber supplement continuation. Due to association with [...] titrate up at her discretion. She continues ctgs-glz-zarhbgb fiber supplement daily. If jdis-cql-vkurzzw regimen is not adequate, can consider prescription [...] agoraphobia W adverse childhood events Follows w/ house cleaner supervisor Well adult exam 04/01/2023 Overview (04/13/2025): Discussed [...] agoraphobia W adverse childhood events Follows w/ house cleaner supervisor Assessment & Plan (04/01/2023 10:29 AM CDT): [...] agoraphobia W adverse childhood events Follows w/ house cleaner supervisor Assessment & Plan (04/01/2023 10:31 AM CDT): Chronic, with improvement BMI Follow-up includes: nutrition counseling. Assessment & Plan (08/14/2021 9:31 AM REAL ESTATE VALUER): She has lost weight since her last [...] appointment (laboratory requisition given). 2. See website: Workanamyplate.gov for patient information handouts on healthy eating [...] agoraphobia W adverse childhood events Follows w/ house cleaner supervisor Assessment & Plan (08/14/2021 9:27 AM REAL ESTATE VALUER): Currently uncontrolled Will start daily metformin 500 [...] Department Care Team Description 5 Nurse Triage [facility] Family Medicine [address] [place] [phone] Nicolette Duncan MD 5 Results Follow-Up [address] [phone] Nicolette Duncan MD Hepatitis C antibody, DHEA-sulfate, Prolactin, Additional followed-up results: 4 5 Orders Only [address] [phone] Nicolette Duncan MD 5 1:00 PM CDT Office Visit [address] [phone] Nicolette Duncan MD Well adult exam (Primary [...] hepatitis C screening test 5 Orders Only [facility] at [address] [place] [phone] Natacha Hernandez DNP Gallstones (Primary Dx) 5 Results Follow-Up [facility] at [address] [place] [phone] Natacha Hernandez DNP RUQ Ultrasound 5 6:30 AM CDT - 5 11:59 PM CDT Hospital Encounter [facility] Ultrasound [address] [place] [address] Gallbladder polyp; Constipation, unspecified constipation type; Bloating; Blood in stool; Change in bowel habits; Abdominal pain; Gastroesophageal reflux disease, unspecified whether esophagitis present Discharge Disposition: Discharge to home or self care 5 Results Follow-Up [facility] at [address] [place] [phone] Arthur Murphy MD Surgical pathology 5 1:12 PM CDT Anesthesia Event [facility] [address] [place] [address] Henry Sands MD 5 1:00 PM CDT - 5 1:30 PM CDT Surgery [facility] [address] [place] [address] Arthur Murphy MD ESOPHAGOGASTRODUODENOSCOPY BIOPSY 5 11:55 AM CDT - 5 2:38 PM CDT Hospital Encounter [facility] [address] [place] [address] Arthur Murphy MD Gastroesophageal reflux disease, unspecified whether esophagitis present; Abdominal pain; Change in bowel habits; Blood in stool; Bloating; Constipation, unspecified constipation type; Gallbladder polyp Discharge Disposition: Discharge to home or self care 5 3:30 PM CDT Office Visit [facility] [address] [phone] Dawood Torres MD Chest pain, unspecified type (Primary Dx); Dry eye syndrome of both eyes; Acute pain of left shoulder; Paresthesias; Morbid obesity with BMI of 40.0-44.9, adult ([facility]) 5 Orders Only [facility] Gastroenterology at [address] [phone] Arthur Murphy MD Gastroesophageal reflux disease, unspecified whether esophagitis present (Primary Dx); Abdominal pain; Change in bowel habits; Blood in stool; Bloating; Constipation, unspecified constipation type; Gallbladder polyp 5 3:30 PM CDT Office Visit [facility] Gastroenterology at [address] [phone] Natacha Cantu, FRANCY Gallbladder polyp (Primary Dx); Constipation, unspecified constipation type; Bloating; Blood in stool; Change in bowel habits; Abdominal pain; Gastroesophageal reflux disease, unspecified whether esophagitis present from Last 3 Months Immunizations Immunization Administration [...] on file Legal Sex Female 12:13 AM REAL ESTATE VALUER Gender Identity Not on file Sexual Orientation [...] 04/13/2025 1:11 PM CDT Plan of Treatment Upcoming Encounters Date Type Department Care Team (Latest Contact Info) Description 06/14/2025 10:02 AM REAL ESTATE VALUER Hospital Encounter [facility] OR [address] [place] [phone] John Parrish IV, MD [address] [place] [phone] 06/14/2025 10:02 AM REAL ESTATE VALUER - 06/14/2025 11:31 AM [facility] Surgery [facility] OR [address] [place] [phone] John Parrish IV, MD [address] [place] [phone] LAPAROSCOPIC CHOLECYSTECTOMY WITH INDOCYANINE GREEN AND INTRAOPERATIVE CHOLANGIOGRAMS,POSSIBLE OPEN CHOLECYSTECTOMY WITH INDOCYANINE GREEN AND INTRAOPERATIVE CHOLANGIOGRAMS Scheduled Procedures Name Priority Associated Diagnoses Date/Ti me LAPAROSCOPIC CHOLECYSTECTOMY WITH CHOLANGIOGRAMS GALLBLADDER COLIC 06/14/2025 10:02 AM REAL ESTATE VALUER Health Maintenance Due Date Last Done Comments Varicella Vaccines (2 of 2 - 2-dose childhood series) 12/28/2004 01/12/2001 HPV Vaccines (1 - 3-dose series) 01/09/2015 Cervical Cancer Screening 04/02/2024 04/02/2023 Covid-19 Vaccine (3 - season) 2025 11/11/2020, 10/13/2020 Influenza Vaccine (#1) 2025 Depression Screening 04/13/2026 04/13/2025, 04/13/2025, 02/25/2025, Additional history exists Regular Well Visit/Exam 18-04/13/2026 04/13/2025, 04/01/2023, 04/01/2023 DTaP/Tdap/Td Vaccine (4 - [...] Last 3 Months Results * Thyroid Function [place] (04/16/2025 11:23 AM CDT) TSH 2.71 mIU/L [facility] Comment: Reference Range > or = 20 Years 0.40-4.50 Ranges First trimester 0.26-2.66 Second trimester 0.55-2.73 Third trimester 0.43-2.91 04/16/2025 11:2 3 AM CDT 04/16/2025 11:25 AM CDT Narrative [facility] - 04/17/2025 6:45 AM CDT FASTING:YES FASTING: YES us Nicolette Duncan MD LAB BLOOD ORDERABLE S Final Result [facility] [address] [address] [phone] * CBC with auto differential (04/16/2025 11:23 [...] ORDERABLE S Final Result Performing Organization Address [facility] de Phone Number [facility] [address] [place] [phone] * Hepatitis C antibody (04/16/2025 11:23 AM CDT) Hep C Ab NON-REACTI VE NON-REACT [facility] Comment: HCV antibody was non-reactive. There is no laboratory evidence of HCV infection. In most cases, no further action is required. However, if recent HCV exposure is suspected, a test for HCV RNA (test code 16117) is suggested. For additional information please refer to http://education.[employer]kota/faq/NCC84v4 (This link is being provided for informational/ educational purposes only.) 04/16/2025 11:2 3 AM CDT 04/16/2025 11:25 AM CDT Narrative [facility] - 04/17/2025 6:45 AM CDT FASTING:YES FASTING: YES us Nicolette Duncan MD LAB MICROBIOLOGY - GENERAL ORDERABLES Final Result Performing Organization Address [facility] de Phone Number [facility] [address] [place] [address] * Prolactin (04/16/2025 11:23 AM CDT) Prolactin 6.5 ng/mL [facility] Comment: Reference Range Females Non- 3.0-30.0 10.0-209.0 Postmenopausal 2.0-20.0 04/16/2025 11:2 3 AM CDT 04/16/2025 11:25 AM CDT Narrative [facility] - 04/17/2025 6:45 AM CDT FASTING:YES FASTING: YES Nicolette Duncan MD LAB BLOOD ORDERABLE S Final Result Performing Organization Address [facility] Co de Phone Number [facility] [address] [place] [address] * (ABNORMAL) DHEA-sulfate (04/16/2025 11:23 AM CDT) DHEA-S 355(H) 14 - 349 mcg/dL [facility] 04/16/2025 11:2 3 AM CDT 04/16/2025 11:25 AM CDT Narrative [facility] - 04/17/2025 6:45 AM CDT FASTING:YES FASTING: YES Nicolette Duncan MD LAB BLOOD ORDERABLE S Final Result Performing Organization Address [facility] de Phone Number [facility] [address] [place] [address] * Lipid panel (04/16/2025 11:23 AM CDT) Cholesterol 166 <200 mg/dL [facility] [...] factors. LDL-C is now calculated using the Yosef-Betina calculation, which is a validated novel method providing better accuracy than the Friedewald equation in the estimation of LDL-C. Yosef SS et al. GURPREET. 2013;310(19): 2015-2807 (http://education.[employer] Republic.[employer]/faq/WHZ010) Chol/HDL ratio 3.2 <5.0 (calc) [facility] [...] BLOOD ORDERABLE S Final Result [facility] [address] [facility] [place] [address] * Comprehensive metabolic panel (04/16/2025 11:23 AM [...] BLOOD ORDERABLE S Final Result [facility] [address] [place] [address] * RUQ Ultrasound (03/23/2025 7:00 AM CDT) [...] 10:08 AM - Electronically signed by Lobito Cummings M.D. CYDNEY: CYDNEY Report ID: [id number] Reading Location: [id number] Procedure Note Lobito Cummings MD - 03/25/2025 [...] 10:08 AM - Electronically signed by Lobito Cummings M.D. CYDNEY: CYDNEY Report ID: [id number] Reading Location: [id number] Natacha Hernandez [facility] US PROCEDURES Mariama miguelangel Result * Surgical pathology (03/09/2025 1:21 PM CDT) Tissue (Duodenum, Biopsy) 03/09/2025 1:21 PM CDT Comment:Cold bx Tissue specimen (specimen) (Gastric/Stomach biopsy) 03/09/2025 1:21 PM CDT Comment:Cold bx Tissue specimen (specimen) (Esophageal biopsy) 03/09/2025 1:21 PM CDT Comment:Cold bx Tissue specimen (specimen) (Colon, Biopsy) 03/09/2025 1:30 PM CDT Comment:Cold bx Narrative PATHOLOGY [facility] - 03/11/2025 1:13 PM CDT [facility] Department of Pathology [address] [place] [address] Note to Patients: This report may contain [...] : 2000 (Age: 25) Gender: F Address: [address] [place], [place] [id number] [facility] #: [id number] Service: Gastro Location: Patient Type: [facility] OUTPATIENT Taken: 03/09/2025 Received: 03/10/2025 Accessioned: [...] Placed between sponges. Labeled D1. Jar 0. [facility]/03/10/2025 11:10 Monica Severino, MS, PA (A Microscopic slide review and interpretation for this case was performed at [facility], Department of Surgical Pathology, [address] [facility] [place], [place] [id number], [place] [address] CLIA # [id number] us Arthur Murphy MD LAB PATHOLOGY ORDERABLES Final R esult PATHOLOGY [facility] * EGD (03/09/2025 1:11 PM CDT) Anatomical Region Laterality Modality Other Narrative Procedure Note Arthur Murphy MD - 03/09/2025 1:11 PM CDT [facility] GI ENDOSCOPY Patient Name: Jenni Figueroa Procedure Date: 03/09/2025 1:11 PM Date of : 2000 Admit Type: Outpatient Age: 25 Gender: Female Attending MD: Arthur Murphy M.D., Room: [facility] ENDOSCOPY ROOM 03 Note Status: Finalized [...] On: 03/09/2025 1:11 PM Recognized by the [place] [employer] for promoting quality in endoscopy us Arthur Murphy MD ENDOSCOPY PROCEDURES Final Resul t * Colonoscopy (03/09/2025 1:11 PM CDT) Anatomical Region Laterality Modality Other Narrative Procedure Note Arthur Murphy MD - 03/09/2025 1:11 PM CDT [facility] GI ENDOSCOPY Patient Name: Jenni Figueroa Procedure Date: 03/09/2025 1:11 PM Date of : 2000 Admit Type: Outpatient Age: 25 Gender: Female Attending MD: Arthur Murphy M.D., Room: [facility] ENDOSCOPY ROOM 03 Note Status: Finalized [...] On: 03/09/2025 1:11 PM Recognized by the [place] for promoting quality in endoscopy Arthur Murphy MD ENDOSCOPY PROCEDURES Final Resul t * (ABNORMAL) POC Blood Gas and Chemistries, Venous - (03/09/2025 1:00 PM CDT) pH,lolita POC 7.40 7.32 - 7.43 pCO2, lolita POC 36(L) 40 - 50 mmHg [facility] pO2,lolita POC 34 mmHg [facility] Comment: Interpretive Data No reference range established. Current interpretive data was last revised 2020. HCO3, lolita (Calc) POC 23 20 - 30 mmol/L [facility] Base excess, lolita POC -2 mmol/L [facility] Comment: Interpretive Data No reference range established. Current interpretive data was last revised 2020. Hemoglobin, lolita POC 12.6 11.9 - 15.5 g/dL [facility] Hematocrit, lolita POC 37.0 35.6 - 45.5 % [facility] Sodium, lolita POC 141 135 - 145 mmol/L [facility] Potassium, lolita POC 3.7 3.3 - 4.9 mmol/L [facility] Comment: Interpretive Data This method is not able to assess for hemolysis, which may falsely increase potassium concentrations. If further testing is needed to evaluate this result, consider in-laboratory plasma potassium. Current Interpretive Data was last revised on 2022. Glucose, lolita POC 98 70 - 199 mg/dL [facility] Ionized Calcium, lolita POC 5.00 4.50 - 5.10 mg/dL [facility] Blood 03/09/2025 1:00 PM CDT 03/09/2025 1:00 PM CDT us Arthur Murphy MD LAB POCT ORDERABLES - DEVICE Fin al Result [facility] [address] [facility] [place] [address] * POCT hCG, urine (03/09/2025 12:35 PM CDT) HCG, ur, POC Negative Negative Lot Number [id number] QC Backgroud Clear Acceptable QC Control Line Acceptable Urine 03/09/2025 12:3 5 PM CDT us Henry Sands MD POINT OF CARE TEST ORDERAB LES Final Result * ECG 12 lead (02/25/2025 4:02 PM CDT) Dawood Torres MD ECG ORDERABLES Final Result from Last 3 Months Insurance [facility] H[facility] Care Teams Sample Box Maker Relationship Specialty Start Date End Date Nicolette Duncan MD [address] [place] [address] PCP - General Family Medicine 02/05/21
--- OUTSIDE RECORDS SUMMARY | 2025-05-05 15:34 | XMS_ITS | Encounter Summary ---
Author Organization [facility] Healthcare Address [address] [place] [address] Care Team Providers Care Optimization Manager Name Role Phone Nicolette Duncan MD Primary Care Provi blair Encounter Details Date Type Department Care Team (Latest Contact Info) Description 03/12/2025 Results Follow-Up [facility] Gastroenterology at [address] [place] [address] Arthur Murphy MD [address] [place] [address] Surgical pathology Social History Tobacco Use [...] on file Legal Sex Female 12:13 AM TOURIST AGENT Gender Identity Not on file Sexual Orientation Not on file documented as of this encounter Plan of Treatment Upcoming Encounters Date Type Department Care Team (Latest Contact Info) Description 06/14/2025 10:02 AM TOURIST AGENT Hospital Encounter [facility] OR [address] [place] [address] John Parrish IV, MD [address] [place] [phone] 06/14/2025 10:02 AM TOURIST AGENT - 06/14/2025 11:31 AM TOURIST AGENT Surgery [facility] OR [address] [place] [phone] John Parrish IV, MD [address] [place] [address] [phone] LAPAROSCOPIC CHOLECYSTECTOMY WITH INDOCYANINE GREEN AND INTRAOPERATIVE CHOLANGIOGRAMS,POSSIBLE OPEN CHOLECYSTECTOMY WITH INDOCYANINE GREEN AND INTRAOPERATIVE CHOLANGIOGRAMS Scheduled Procedures Name Priority Associated Diagnoses Date/Ti me LAPAROSCOPIC CHOLECYSTECTOMY WITH CHOLANGIOGRAMS GALLBLADDER COLIC 06/14/2025 10:02 AM TOURIST AGENT documented as of this encounter Visit Diagnoses Not on filedocumented in this encounter Care Teams Optimization Manager Relationship Specialty Start Date End Date Nicolette Duncan MD [address] [place], [place] [phone] PCP - General Family Medicine 02/05/21 documented as of this encounter
--- OUTSIDE RECORDS SUMMARY | 2025-05-05 15:34 | XMS_ITS | Encounter Summary ---
Author Organization [facility] Address [address] [place] [address] Care Team Providers Care Tire Mold Engraver Name Role Phone Unavailable Primary Care Provider Unavailabl e Encounter Details Date Type Department Care Team (Late st Contact Info) Description 04/22/2023 Lab Requisition [facility] - Derm[facility] Lab [address] [facility], [place] [address] Frandy Kelly MD [facility] DERMATOLOGY [address] [place] [phone] Neoplasm of uncertain behavior of skin [...] AM CDT) Case Report Dermatopathology Report Case: [id number] Authorizing Provider: Frandy Kelly MD Collected: 04/22/2023 03:33 AM Ordering Location: [facility] DermPath Lab Received: 04/23/2023 01:17 PM [...] characteristic determined by the Dermatopathology Laboratory at [facility], directed by Dr. Rico Lopez. These tests need not be, and therefore are not, approved by the [place] Food and Drug Administration. The tests are used for clinical purposes. Billing Codes Specimen Charges Stain Charges 60792 85375 1 1 3 3:32 PM CDT DERMATOPATHOLOGY LABORATORY Embedded Images 3:32 PM CDT DERMATOPATHOLOGY LABORATORY Pathology/Cytology TISSUE SPECIMEN FROM SKIN / Unknown 04/22/2023 3:33 AM CDT 04/23/2023 1:17 PM CDT Miscellaneous samples (specimen) TISSUE SPECIMEN FROM SKIN / Unknown 04/22/2023 3:33 AM CDT 04/23/2023 1:17 PM CDT us Frandy Kelly MD LAB - PATHOLOGY/CYTOLOGY JOSSE SHORT Final Result DERMATOPATHOLOGY LABORATORY [facility] - Department of Dermatology [facility] [address] [place] [address], [address] [phone] documented in this encounter Visit Diagnoses Diagnosis Neoplasm of uncertain behavior of skin documented in this encounter
--- OUTSIDE RECORDS SUMMARY | 2025-05-05 15:34 | XMS_ITS | Patient Health Record ---
Author Organization [facility] Address [address] [place] [address] Care Team Providers Care Shove Up Name Role Phone Navin Mei Unavailable [phone] Reason For Referral No Information Medications Medication [...] AM, [address], [place], [address], Insurance Providers Payer Name Payer Address Payer Phone Subscriber Number Group Number Insured Name Patient Relationship to Insured Coverage Start Date Coverage End Date Aet[employer] [address] [place] [phone] [id number] [place] Self - patient is the insured
--- OUTSIDE RECORDS SUMMARY | 2025-05-05 15:34 | XMS_ITS | Clinical Summary ---
Author Organization [facility] [employer] Address [address] 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 This disclosure is being madepursuant to the Care Everywhere program and may not contain all information available regarding this patient. Last updated 18.[facility] [employer] Social History Tobacco Use Types Packs/Day Years [...]
--- OUTSIDE RECORDS SUMMARY | 2025-05-05 15:34 | XMS_ITS | Encounter Summary ---
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 Gender Identity Not on file Sexual Orientation Not on file documented as of this encounter Plan of Treatment Upcoming Encounters Date Type Department Care Team (Latest Contact Info) Description 06/14/2025 10:02 AM OLD COIN DEALER Hospital Encounter [facility] [place] [address] [place] [id number] John Parrish IV, MD [address] [place] [address] [phone] 06/14/2025 10:02 AM OLD COIN DEALER - 06/14/2025 11:31 AM OLD COIN DEALER Surgery [facility] [place] [address] [place] [phone] John Parrish IV, MD [address] [place] [id number] LAPAROSCOPIC CHOLECYSTECTOMY WITH INDOCYANINE GREEN AND INTRAOPERATIVE CHOLANGIOGRAMS,POSSIBLE OPEN CHOLECYSTECTOMY WITH INDOCYANINE GREEN AND INTRAOPERATIVE CHOLANGIOGRAMS Scheduled Procedures Name Priority Associated Diagnoses Date/Ti me LAPAROSCOPIC CHOLECYSTECTOMY WITH CHOLANGIOGRAMS GALLBLADDER COLIC 06/14/2025 10:02 AM OLD COIN DEALER documented as of this encounter Visit Diagnoses Not on filedocumented in this encounter Care Teams Hide Grader Relationship Specialty Start Date End Date Nicolette Duncan MD [address] [place] [address] PCP - General Family Medicine 02/05/21 documented as of this encounter
--- OUTSIDE RECORDS SUMMARY | 2025-05-05 15:34 | XMS_ITS | Encounter Summary ---
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 Name Role Phone Nicolette Duncan MD Primary Care Provi blair Encounter Details Date Type Department Care Team (Late st Contact Info) Description 03/25/2025 Results Follow-Up [facility] Medical Group Gastroenterology at [address] [place] [address] Natacha Hernandez, [address] [place] [address] [facility] Ultrasound Social History Tobacco [...] on file Legal Sex Female 12:13 AM MANAGER POST Gender Identity Not on file Sexual Orientation Not on file documented as of this encounter Plan of Treatment Upcoming Encounters Date Type Department Care Team (Latest Contact Info) Description 06/14/2025 10:02 AM MANAGER POST Hospital Encounter [facility] OR [address] [place] [phone] John Parrish IV, MD [address] [place] [address] [phone] 06/14/2025 10:02 AM MANAGER POST - 06/14/2025 11:31 AM MANAGER POST Surgery [facility] OR [address] [place] [phone] John Parrish IV, MD [address] [place] [address] [phone] LAPAROSCOPIC CHOLECYSTECTOMY WITH INDOCYANINE GREEN AND INTRAOPERATIVE CHOLANGIOGRAMS,POSSIBLE OPEN CHOLECYSTECTOMY WITH INDOCYANINE GREEN AND INTRAOPERATIVE CHOLANGIOGRAMS Scheduled Procedures Name Priority Associated Diagnoses Date/Ti me LAPAROSCOPIC CHOLECYSTECTOMY WITH CHOLANGIOGRAMS GALLBLADDER COLIC 06/14/2025 10:02 AM MANAGER POST documented as of this encounter Visit Diagnoses Not on filedocumented in this encounter Care Teams Charging Machine Operator Relationship Specialty Start Date End Date Nicolette Duncan MD [facility] [address] [place], [place] [phone] PCP - General Family Medicine 02/05/21 documented as of this encounter
--- OUTSIDE RECORDS SUMMARY | 2025-05-05 15:34 | XMS_ITS | Patient Health Record ---
Author Organization [facility] Address [address] [id number] Care Team Providers Care Coordinator Of Evaluation Name Role Phone Horace Lala DO Unavailable [phone] Unavailable Allergies No Known Allergies Reason For Referral No Information Plan Of Treatment No Information Insurance Providers Payer Name Payer Address Payer Phone Subscriber Number Group Number Insured Name Patient Relationship to Insured Coverage Start Date Coverage End Date Aet[employer] [address] [place] [phone] [id number] Jenni Cash Self - patient is the insured Medical (General) History Medical History History ICD Code gallbladder issues Liver disease Anemia: Gallbladder problems,Liver disea se or Abnormal liver test
== END 2025-05-04 19:08 | disposition home or self-care (01) ==
PROVIDERS: Emergency Provider Nurse Practitioner; PCP Family Medicine
DX: N30.00 Acute cystitis without hematuria (principal)
CPT/HCPCS: 81003; 87086; 99213; G0463